=== PATIENT | male | born 1955 | race African-American/Black ===

== ENCOUNTER 2018-06-24 19:55 | Inpatient (IN) | payer MEDICARE ==
[~2018-06-24] VITALS: Ht 180.3 cm; Wt 89.4 kg
[2018-06-25] MEDS ORDERED: SODIUM CHLORIDE 0.9% 1000ML 1,000 ML IV STA (01:06)
[2018-06-25 01:37] LABS: BASOPHILS # (AUTO) 0.1 (0.0-0.1); BASOPHILS % 0.4 % (0.0-1.0); EOSINOPHILS # (AUTO) 0.1 (0.0-0.4); EOSINOPHILS % 0.8 % (0.0-6.0); HEMATOCRIT 47.9 % (38.2-49.6); HEMOGLOBIN 15.5 g/dL (14.0-18.0); LYMPHOCYTES % 7.3 % (18.0-39.1); MEAN CORPUSCULAR HEMOGLOBIN 30.6 pg (28-32); MEAN CORPUSCULAR HGB CONC 32.4 g/dL (31-35); MEAN CORPUSCULAR VOLUME 94.5 fL (81-99); MONOCYTES # (AUTO) 1.6 (0.2-0.8); MONOCYTES % 11.6 % (4.4-11.3); NEUTROPHILS # (AUTO) 11.1 (2.1-6.9); NEUTROPHILS % 79.4 % (38.7-80.0); PLATELET COUNT 105 x10e3/uL (140-360); RED BLOOD COUNT 5.07 x10e6/uL (4.3-5.7); RED CELL DISTRIBUTION WIDTH 15.8 % (11.7-14.4)
[2018-06-25 01:42] LABS: INR 2.39; PARTIAL THROMBOPLASTIN TIME 42.7 seconds (23.8-35.5); PROTHROMBIN TIME 24.5 seconds (11.9-14.5)
[2018-06-25 01:44] LABS: BILIRUBIN,URINE NEGATIVE (NEGATIVE); CLARITY,URINE CLOUDY (CLEAR); COLOR,URINE RED (YELLOW); KETONES,URINE NEGATIVE (NEGATIVE); LEUKOCYTE ESTERASE ,URINE 2+ (NEGATIVE); NITRITE,URINE NEGATIVE (NEGATIVE); PROTEIN,URINE DIPSTICK 2+ (NEGATIVE); URINE UROBILINOGEN 1 mg/dL (0.2 - 1)
[2018-06-25 01:45] LABS: EPITHELIAL CELLS,URINE RARE /LPF; RBC,URINE >50 /HPF (0-5)
[2018-06-25 01:51] LABS: ALBUMIN 2.8 g/dL (3.5-5.0); ALBUMIN/GLOBULIN RATIO 0.6 (0.8-2.0); ANION GAP 17.3 mmol/L (8-16); CALCIUM 9.4 mg/dL (8.4-10.2); CREATININE, SERUM 1.84 mg/dL (0.72-1.25); MAGNESIUM 1.6 MG/DL (1.3-2.1); POTASSIUM 4.3 mmol/L (3.5-5.1)
[2018-06-25 01:57] LABS: CREATINE KINASE MB 5.9 ng/mL (0-5.0)
--- NOTE | 2018-06-25 02:01 | Diagnostic Imaging Report ---
EXAM: CT ABDOMEN AND PELVIS without IV CONTRAST INDICATION: Hematuria, right-sided abdominal pain COMPARISON: None TECHNIQUE: The abdomen and pelvis were scanned using a multidetector helical scanner. Coronal and sagittal reformations were obtained. Renal stone protocol performed. IV Contrast: None Oral Contrast: None CTDIvol has been reviewed. It is below the limits set by the Radiation Protocol Committee (RPC). FINDINGS: LOWER THORAX: There is a 2.8 cm round subpleural mass/consolidation in the right lower lobe with adjacent traction bronchiectasis. Cardiomegaly. LIVER: No masses BILIARY: Possible gallbladder wall thickening. No ductal dilation. SPLEEN: No masses PANCREAS: No masses ADRENALS: No nodules RIGHT KIDNEY: No nephroureterolithiasis or hydronephrosis. Hyperdense 1 cm exophytic lesion superior pole, likely a hyperdense cyst. Nonspecific perinephric fat stranding. LEFT KIDNEY: Punctate nonobstructing stone in the inferior pole of the left kidney. No ureteral stones or hydronephrosis. Nonspecific perinephric fat stranding. GI TRACT: No wall thickening or obstruction. Normal appendix. VESSELS: Severe atherosclerotic changes of the abdominal aorta without aneurysm. PERITONEUM/RETROPERITONEUM: No free air or fluid LYMPH NODES: No lymphadenopathy REPRODUCTIVE ORGANS: Normal BLADDER: Bladder wall thickening and surrounding perinephric fat stranding. SOFT TISSUES: Normal BONES: No suspicious bone lesions. IMPRESSION: 1. Questionable gallbladder wall thickening without hydrops. If there is clinical concern for acute cholecystitis, consider right upper quadrant ultrasound. 2. Circumferential bladder wall thickening and surrounding inflammation suggests cystitis. 3. Punctate nonobstructing stone in the inferior pole of the left kidney 4. There is a 2.8 cm round subpleural mass/consolidation in the right lung base that is indeterminate for round atelectasis versus true pulmonary nodule. If there are no priors available for comparison at an outside facility, a follow-up CT of the chest is recommended in [address] Signed by: Dr. Jody Guerra M.D. on 06/25/2018 1:58 AM
--- NOTE | 2018-06-25 02:05 | Diagnostic Imaging Report ---
EXAM: CHEST SINGLE (PORTABLE), AP 1 view INDICATION: Chest pain COMPARISON: CT of the abdomen and pelvis June 25, 2018 FINDINGS: LINES/TUBES: Left approach single lead cardiac device. LUNGS: Right lower lobe airspace opacity. PLEURA: No effusions or pneumothorax. HEART AND MEDIASTINUM: Cardiomegaly BONES AND SOFT TISSUES: No acute findings. IMPRESSION: Right lower lobe airspace opacity is indeterminate for round atelectasis or subpleural nodule on comparison CT. Recommend comparing to any prior images not available at this facility versus CT of the chest in 3 months or PET/CT. Signed by: Dr. Jody Guerra M.D. on 06/25/2018 2:01 AM
[2018-06-25] MEDS ORDERED: ONDANSETRON HCL INJ 2 MG/ML VIAL IV STA (03:08)
[2018-06-25] MEDS ORDERED: MORPHINE SULFATE 2 MG/ML SYR IV STA (03:08)
[2018-06-25] MEDS: CEFTRIAXONE SOD 1 GM VIAL IV SCH ×2 (03:40→16:29)
[2018-06-25] MEDS ORDERED: NITROGLYCERIN 0.4 MG SUBL SL PRN (04:00)
[2018-06-25 06:29] LABS: CREATINE KINASE MB 5.9 ng/mL (0-5.0)
[2018-06-25] MEDS: MORPHINE SULFATE 2 MG/ML SYR IV PRN ×3 (08:04→21:35)
[2018-06-25 08:41] VITALS: BP 119/78
[2018-06-25] MEDS ORDERED: ASPIRIN 81 MG ENTERIC COATED PO ONE (11:30)
[2018-06-25 12:11] VITALS: BP 119/74
[2018-06-25] MEDS: FAMOTIDINE 20 MG/2 ML VIAL IV SCH ×2 (12:41→16:00)
--- NOTE | 2018-06-25 13:42 | Consultation ---
DATE OF CONSULTATION: June 25, 2018 CARDIOLOGY CONSULTATION REQUESTING PHYSICIAN: Dr. Jignesh Quiñones. REASON FOR CONSULTATION: Elevated troponin. HISTORY OF PRESENT ILLNESS: This is a 63-year-old man with history of chronic systolic heart failure (reported ejection fraction of 35-40%), chronic atrial fibrillation on Coumadin, coronary artery disease status post prior myocardial infarctions and stent placement most recently 5 years ago, peripheral arterial disease status post revascularization, diabetes mellitus, and hypertension who presents with complaints of dysuria and hematuria. The patient reports he has been having increasing lower abdominal pain for approximately 2 weeks. He recently developed dysuria and hematuria, for which he presented to the ER for further evaluation. While in the ER, he developed slight chest pain, which he described as stabbing, 3 to 5/10 in severity. It was not associated with radiation, shortness of breath, nausea, or diaphoresis. He reports the pain is better with belching. In addition, he also endorses chronic dyspnea on exertion at approximately 20 feet, lower extremity edema, and chronic orthopnea. In the ER, the patient was found to have a troponin of 1.585 with creatinine of 1.84, INR of 2.39 with leukocytosis at 13.93 and an abnormal UA with 2+ protein, 1+ glucose, 4+ blood, 2+ leukocyte esterase, greater than 50 rbc's, and 6 to 10 wbc's. The patient was admitted for further evaluation. REVIEW OF SYSTEMS: Negative except as per HPI. PAST MEDICAL HISTORY 1. Chronic systolic heart failure with reported EF 35-40%. 2. Chronic atrial fibrillation, on Coumadin. 3. Coronary artery disease, status post stents and myocardial infarction. 4. Peripheral arterial disease. 5. Diabetes mellitus. 6. Hypertension. PAST SURGICAL HISTORY: Denied. SOCIAL HISTORY: Smokes half pack a day since the age of 16. No alcohol or drugs. FAMILY HISTORY: Pertinent for brother with heart disease. ALLERGIES: PLEASE SEE EMR. MEDICATIONS: Please see medication list. PHYSICAL EXAMINATION VITAL SIGNS: Temperature 98.6 degrees, pulse 91, respiratory rate 20, blood pressure 119/70, oxygen saturation 92%. GENERAL: Well developed, well nourished main, in no acute distress. HEENT: Normocephalic, atraumatic. Pupils equal, no scleral icterus. NECK: Supple. No thyromegaly or cervical lymphadenopathy. No carotid bruits. LUNGS: Clear to auscultation bilaterally. No wheezes or crackles. CARDIOVASCULAR: Normal rate, irregularly irregular. No murmur. Normal S1 and S2. ABDOMEN: Soft, nontender. EXTREMITIES: 1+ pitting edema bilateral lower extremities. NEURO: Nonfocal exam. LABORATORY DATA: Sodium 135, potassium 4.3, chloride 96, CO2 of 26, BUN 39, creatinine 1.84. WBC 13.93, hemoglobin 15.5, hematocrit 47.9, platelets 105. Troponin 1.6, now 1.615, INR 2.39. CT abdomen and pelvis with questionable gallbladder wall thickening without hydrops. If there is concern for acute cholecystitis, consider right upper quadrant ultrasound. Circumferential bladder wall thickening and surrounding inflammation suggest cystitis. Punctate nonobstructive stone in inferior pole of the left kidney, 2.8 cm round subpleural mass consolidation in the right lung base that is indeterminate for round atelectasis versus true pulmonary nodule. If there are no priors available for comparison at outside facility, a followup CT of the chest is recommended in 3 months versus PET/CT. Chest x-ray, right lower lobe airspace opacity is indeterminate for round atelectasis or subpleural nodule on comparison CT. Recommended comparing to any priors. If it is not available at this facility, followup CT of the chest in 3 months or PET/CT. EKG demonstrates atrial fibrillation, PVCs, nonspecific intraventricular block, possible lateral infarct age undetermined, inferior infarct age undetermined. IMPRESSION 1. Acute kidney disease versus chronic kidney disease. 2. Urinary tract infection. 3. Elevated troponin. 4. Chronic atrial fibrillation. 5. Coronary artery disease, status post prior stents. 6. Chronic systolic heart failure. 7. Peripheral arterial disease. 8. Diabetes mellitus. 9. Hypertension. RECOMMENDATIONS: Trend cardiac enzymes. Thus far, troponin is not consistent with myocardial infarction. Suspect elevation is secondary to chronic systolic heart failure as well as renal dysfunction. Obtain echocardiogram. Given complaint of claudication, we will also obtain bilateral lower extremity arterial Dopplers. Monitor creatinine. Antibiotics per primary service. Patient will need ischemic evaluation prior to discharge if his renal function improves. In the meantime, recommend dual-antiplatelet therapy. We will need to hold his Coumadin for possible procedures by urology. Thank you for this consult. We will continue to follow. Job#: [id number] SKI
[2018-06-25 16:28] VITALS: BP 118/74
[2018-06-25] MEDS ORDERED: PLAVIX75 MG PO (17:15)
[2018-06-25] MEDS ORDERED: TRAMADOL HCL100 MG (17:15)
[2018-06-25] MEDS ORDERED: LORATADINE10 MG PO (17:15)
[2018-06-25] MEDS ORDERED: LISINOPRIL10 MG PO (17:15)
[2018-06-25] MEDS ORDERED: LASIX40 MG PO (17:15)
[2018-06-25] MEDS ORDERED: GABAPENTIN100 MG (17:15)
[2018-06-25] MEDS ORDERED: COREG12.5 MG (17:15)
[2018-06-25] MEDS: FUROSEMIDE 40 MG TAB PO SCH (21:00)
[2018-06-25 21:08] VITALS: BP 132/89
[2018-06-25] MEDS: GABAPENTIN 100 MG CAP PO SCH (21:22)
[2018-06-25 22:36] VITALS: BP 132/89
[2018-06-26 00:11] VITALS: BP 150/76
[2018-06-26] MEDS: CEFTRIAXONE SOD 1 GM VIAL IV SCH ×2 (02:40→15:19)
[2018-06-26] MEDS: FAMOTIDINE 20 MG/2 ML VIAL IV SCH ×2 (04:00→16:50)
[2018-06-26 05:06] LABS: BASOPHILS # (AUTO) 0.1 (0.0-0.1); BASOPHILS % 0.7 % (0.0-1.0); EOSINOPHILS # (AUTO) 0.2 (0.0-0.4); HEMATOCRIT 47.6 % (38.2-49.6); HEMOGLOBIN 15.2 g/dL (14.0-18.0); LYMPHOCYTES # (AUTO) 1.1 (1.0-3.2); LYMPHOCYTES % 12.8 % (18.0-39.1); MEAN CORPUSCULAR HEMOGLOBIN 30.6 pg (28-32); MEAN CORPUSCULAR HGB CONC 31.9 g/dL (31-35); MONOCYTES # (AUTO) 1.1 (0.2-0.8); MONOCYTES % 12.9 % (4.4-11.3); NEUTROPHILS % 71.1 % (38.7-80.0); PLATELET COUNT 103 x10e3/uL (140-360); RED BLOOD COUNT 4.96 x10e6/uL (4.3-5.7); RED CELL DISTRIBUTION WIDTH 15.8 % (11.7-14.4)
[2018-06-26 05:22] VITALS: BP 172/82
[2018-06-26 05:27] LABS: ALBUMIN 2.5 g/dL (3.5-5.0); ALBUMIN/GLOBULIN RATIO 0.6 (0.8-2.0); ANION GAP 14.5 mmol/L (8-16); CALCIUM 9.5 mg/dL (8.4-10.2); CHOL/HDL RATIO 3.1 (3.9-4.7); CREATININE, SERUM 1.57 mg/dL (0.72-1.25); MAGNESIUM 1.6 MG/DL (1.3-2.1); POTASSIUM 4.5 mmol/L (3.5-5.1)
[2018-06-26] MEDS: MORPHINE SULFATE 2 MG/ML SYR IV PRN ×2 (07:21→21:07)
[2018-06-26] MEDS: LORATADINE 10 MG TAB PO SCH (09:00)
[2018-06-26] MEDS ORDERED: LISINOPRIL 10 MG TAB PO SCH (09:00)
[2018-06-26] MEDS ORDERED: CLOPIDOGREL BISULFATE 75 MG TAB PO SCH (09:00)
[2018-06-26] MEDS: TRAMADOL HCL 50 MG TAB PO SCH ×2 (09:00→16:59)
[2018-06-26] MEDS: CLOPIDOGREL BISULFATE 75 MG TAB PO SCH (09:25)
[2018-06-26] MEDS: FUROSEMIDE 40 MG TAB PO SCH ×3 (09:25→21:00)
[2018-06-26] MEDS: GABAPENTIN 100 MG CAP PO SCH ×3 (09:25→21:07)
[2018-06-26] MEDS: CARVEDILOL 12.5 MG TAB PO SCH ×2 (09:25→16:13)
[2018-06-26] MEDS: LISINOPRIL 20 MG TAB PO SCH (09:26)
[2018-06-26 12:27] LABS: CREATINE KINASE MB 9.1 ng/mL (0-5.0)
[2018-06-26 12:37] VITALS: BP 124/60
[2018-06-26] MEDS ORDERED: DEXTROSE 50% SYRINGE 50 ML IV PRN (13:45)
[2018-06-26] MEDS: NICOTINE 14 MG/EA PATCH TOP SCH (14:16)
[2018-06-26 16:00] VITALS: BP 119/64
[2018-06-26] MEDS: INSULIN LISPRO 100 UNIT/1 ML 3ML VIAL SQ SCH ×2 (16:30→21:07)
--- NOTE | 2018-06-26 17:27 | Progress Note ---
DATE: CARDIOLOGY PROGRESS NOTE SUBJECTIVE: Patient complains of some dyspnea on exertion and also claudication especially on the left lower extremity. He also does endorse dysuria. However, this is getting better and hematuria is also reported to have improved. OBJECTIVE VITAL SIGNS: Temperature 97.2, pulse 67, respiratory rate 18, blood pressure 130/75, oxygen saturation 97% on room air. CARDIOVASCULAR MEDICATIONS 1. Lisinopril 40 mg p.o. daily. 2. Lasix 40 mg p.o. t.i.d. 3. Coreg 12.5 p.o. b.i.d. 4. Plavix 75 p.o. daily. 5. Nitro 0.4 mg sublingual every 5 minutes p.r.n. for chest pain. LABS: WBC 8.47, hemoglobin 15.2, hematocrit 47.6, and platelets 103,000. Sodium 139, potassium 4.5, BUN 51, creatinine 1.57. Glucose 205. AST 34, ALT 18. Troponin 1.5. CK-MB 7 from yesterday. LDL 60, total cholesterol 108. Telemetry with AFib with a bundle branch block. PHYSICAL EXAMINATION GENERAL: Alert and oriented times 3. Resting comfortably in bed. Does not appear to be in acute distress. NECK: Supple. Moderate JVD noted. CARDIOVASCULAR: Irregular rate and rhythm. Systolic murmur noted. S3 and S4 auscultated. Normal S1 and S2. LUNGS: Diminished breath sounds in posterior lower lobes with scattered crackles. ABDOMEN: Rounded, soft and nontender. EXTREMITIES: Two plus pitting edema, left greater than right. Absent posterior tibial and dorsalis pulses. NEURO: Nonfocal. IMPRESSION 1. Acute kidney disease versus chronic kidney disease. 2. Urinary tract infection with reported hematuria. 3. Elevated troponin. 4. Chronic atrial fibrillation. 5. Coronary artery disease: Status post prior stents. 6. Chronic systolic heart failure. 7. Peripheral arterial disease. 8. Diabetes mellitus. 9. Hypertension. RECOMMENDATIONS: Repeat troponin today. We suspect troponin elevation likely secondary to systolic heart failure, as well as renal dysfunction. Echocardiogram has been ordered. Recommendations to follow. Bilateral lower extremity arterial Doppler was obtained yesterday. Recommendations will follow. Awaiting review. Continue antimicrobial therapy per primary team. The patient will need ischemic evaluation prior to discharge if his renal function does improve. In the meantime, monitor renal function very closely. Continue dual antiplatelet therapy. Hold warfarin for now and initiate Lovenox in case of possible procedures. DICTATED BY ENEDINA RIOS NP Job#: [id number] RI
[2018-06-26 20:53] VITALS: BP 106/73
[2018-06-27] VITALS (7 sets, daily range): BP systolic 107–163; BP diastolic 61–97
[2018-06-27] MEDS: MORPHINE SULFATE 2 MG/ML SYR IV PRN ×4 (02:04→23:39)
[2018-06-27] MEDS: CEFTRIAXONE SOD 1 GM VIAL IV SCH ×2 (03:32→15:26)
[2018-06-27] MEDS: FAMOTIDINE 20 MG/2 ML VIAL IV SCH ×2 (03:32→16:50)
[2018-06-27] MEDS: INSULIN LISPRO 100 UNIT/1 ML 3ML VIAL SQ SCH ×4 (07:30→20:51)
[2018-06-27] MEDS: CARVEDILOL 12.5 MG TAB PO SCH ×2 (09:00→17:01)
[2018-06-27] MEDS: LORATADINE 10 MG TAB PO SCH (09:00)
[2018-06-27] MEDS: CLOPIDOGREL BISULFATE 75 MG TAB PO SCH (09:14)
[2018-06-27] MEDS: NICOTINE 14 MG/EA PATCH TOP SCH (09:14)
[2018-06-27] MEDS: TRAMADOL HCL 50 MG TAB PO SCH ×3 (09:14→21:00)
[2018-06-27] MEDS: LISINOPRIL 20 MG TAB PO SCH (09:14)
[2018-06-27] MEDS: FUROSEMIDE 40 MG TAB PO SCH ×3 (09:14→20:51)
[2018-06-27] MEDS: GABAPENTIN 100 MG CAP PO SCH ×3 (09:14→20:51)
[2018-06-27] MEDS ORDERED: MEROPENEM 1GM 100 ML IV SCH (11:00)
[2018-06-27] MEDS: MEROPENEM 1 GM VIAL IV SCH ×2 (11:30→23:50)
[2018-06-27] MEDS: ONDANSETRON HCL INJ 2 MG/ML VIAL IV PRN (12:36)
[2018-06-27] MEDS: ENOXAPARIN SOD INJ 40 MG/0.4 ML SYR SC SCH ×2 (13:10→20:51)
--- NOTE | 2018-06-27 13:47 | Progress Note ---
DATE: CARDIOLOGY PROGRESS NOTE SUBJECTIVE: The patient is without any new complaints. However, he does endorse claudication, left leg worse than the right. Also, some shortness of breath and also continued dysuria. OBJECTIVE VITAL SIGNS: Temperature 96.8, pulse 78, respiratory rate 20, blood pressure 122/86, oxygen saturation 94% on room air. CARDIOVASCULAR MEDICATIONS 1. Lisinopril 40 mg p.o. daily. 2. Furosemide 40 mg p.o. t.i.d. 3. Plavix 75 mg p.o. daily. 4. Coreg 12.5 mg daily. LABS: No new labs today. Arterial Doppler from June 25, 2018, with evidence of total occlusion in the right femoral artery and also total occlusion in the left femoral artery. Severe PAD. Telemetry with rate controlled atrial flutter. PHYSICAL EXAMINATION GENERAL: Alert and oriented times 3. Resting comfortably in the chair. Does not appear to be in any acute distress. NECK: Supple. Moderate JVD noted. CARDIOVASCULAR: Regular rate and rhythm. Systolic murmur noted. S3 and S4 auscultated. Normal S1 and S2. LUNGS: Diminished in the posterior lower lobes with scattered crackles. ABDOMEN: Rounded, soft and nontender. EXTREMITIES: Two plus pitting edema, left lower extremity greater than the right. Absent pedal pulses. IMPRESSION 1. Acute kidney disease versus chronic kidney disease. 2. Urinary tract infection with reported hematuria on admission, now hematuria has resolved with a stable hemoglobin noted. 3. Elevated troponin. 4. Chronic atrial fibrillation. 5. Coronary artery disease: Status post stents 3 years ago per his reporting. 6. Chronic systolic heart failure. 7. Peripheral arterial disease, now with occluded left and right femoral artery. 8. Diabetes mellitus. 9. Hypertension. RECOMMENDATIONS: The patient will need coronary and also peripheral angiogram. Will discuss timing and recommendations will follow. For now, continue the above list of cardiac medications. Discontinue Plavix. Maintain on aspirin. We will resume warfarin upon discharge. For now, subcutaneous Lovenox due to anticipated procedure. We will continue to follow very closely. DICTATED BY ENEDINA RIOS NP Job#: [id number] DAO
[2018-06-27] MEDS ORDERED: WARFARIN SOD 3 MG TAB PO SCH (17:00)
[2018-06-28] VITALS (8 sets, daily range): BP systolic 110–150; BP diastolic 67–93
[2018-06-28] MEDS: CEFTRIAXONE SOD 1 GM VIAL IV SCH ×2 (03:53→15:35)
[2018-06-28] MEDS: FAMOTIDINE 20 MG/2 ML VIAL IV SCH ×2 (03:53→15:35)
[2018-06-28 05:06] LABS: BASOPHILS # (AUTO) 0.1 (0.0-0.1); BASOPHILS % 0.9 % (0.0-1.0); EOSINOPHILS # (AUTO) 0.4 (0.0-0.4); EOSINOPHILS % 5.4 % (0.0-6.0); HEMATOCRIT 47.1 % (38.2-49.6); HEMOGLOBIN 15.4 g/dL (14.0-18.0); LYMPHOCYTES # (AUTO) 1.2 (1.0-3.2); LYMPHOCYTES % 15.4 % (18.0-39.1); MEAN CORPUSCULAR HEMOGLOBIN 30.6 pg (28-32); MEAN CORPUSCULAR HGB CONC 32.7 g/dL (31-35); MEAN CORPUSCULAR VOLUME 93.6 fL (81-99); MONOCYTES # (AUTO) 1.1 (0.2-0.8); MONOCYTES % 14.3 % (4.4-11.3); NEUTROPHILS # (AUTO) 4.7 (2.1-6.9); NEUTROPHILS % 63.6 % (38.7-80.0); PLATELET COUNT 119 x10e3/uL (140-360); RED BLOOD COUNT 5.03 x10e6/uL (4.3-5.7); RED CELL DISTRIBUTION WIDTH 15.3 % (11.7-14.4)
[2018-06-28 05:28] LABS: ANION GAP 16.5 mmol/L (8-16); CALCIUM 9.3 mg/dL (8.4-10.2); CREATININE, SERUM 1.48 mg/dL (0.72-1.25); POTASSIUM 3.5 mmol/L (3.5-5.1)
[2018-06-28] MEDS: INSULIN LISPRO 100 UNIT/1 ML 3ML VIAL SQ SCH ×4 (07:30→21:20)
[2018-06-28] MEDS: MORPHINE SULFATE 2 MG/ML SYR IV PRN ×3 (08:30→16:31)
[2018-06-28] MEDS: GABAPENTIN 100 MG CAP PO SCH ×3 (08:38→22:05)
[2018-06-28] MEDS: FUROSEMIDE 40 MG TAB PO SCH ×3 (08:38→22:05)
[2018-06-28] MEDS: CARVEDILOL 12.5 MG TAB PO SCH ×2 (08:38→16:30)
[2018-06-28] MEDS: LORATADINE 10 MG TAB PO SCH (08:38)
[2018-06-28] MEDS: LISINOPRIL 20 MG TAB PO SCH (08:38)
[2018-06-28] MEDS: NICOTINE 14 MG/EA PATCH TOP SCH (08:39)
[2018-06-28] MEDS: ENOXAPARIN SOD INJ 40 MG/0.4 ML SYR SC SCH ×2 (08:39→22:05)
[2018-06-28] MEDS ORDERED: ASPIRIN 325 MG TAB PO ONE (09:00)
[2018-06-28] MEDS: TRAMADOL HCL 50 MG TAB PO SCH ×3 (09:15→22:05)
[2018-06-28] MEDS: MEROPENEM 1 GM VIAL IV SCH ×2 (12:12→23:30)
--- NOTE | 2018-06-28 19:19 | Progress Note ---
DATE: June 28, 2018 CARDIOLOGY PROGRESS NOTE SUBJECTIVE: No major events overnight. No more hematuria. Feels well. Denies any chest pain or shortness of breath. Complains about pain in the legs whenever he tries to walk. REVIEW OF SYSTEMS: As above, otherwise negative. OBJECTIVE GENERAL: man, well developed, well nourished, no acute distress. CARDIOVASCULAR: Regular rate and rhythm. Systolic ejection murmur. S4 gallop. Normal S1 and S2. Palpable carotid pulses. Palpable radial pulses. Pulses in the lower extremities are not palpable. There is 2+ pitting edema in bilateral lower extremities. JVD to 12 cm. LUNGS: Poor air movement likely consistent with COPD. No respiratory distress. Lungs are clear to auscultation bilaterally. ABDOMEN: Soft, nontender. NEURO AND PSYCH: Alert and oriented to person, place and time. Normal affect. IMPRESSION 1. Acute kidney injury. 2. Urinary tract infection with reported hematuria. Now hematuria resolved with stable hemoglobin. 3. Elevated troponin. 4. Chronic atrial fibrillation. 5. Coronary artery disease, status post stents 3 years ago per patient. 6. Chronic systolic heart failure. 7. Peripheral arterial disease. 8. Severe claudication. 9. Occluded left and right femoral arteries by Doppler. 10. Diabetes. 11. Hypertension. RECOMMENDATIONS: The patient will need coronary and peripheral angiogram. Waiting for his renal function to improve. As it continues to come down, creatinine 1.4 today down from 1.8 several days ago. For now, continue the current cardiac medications including Lovenox. Will tentatively plan for angiography on Thursday. Will continue to follow. Thank you for this consult. Job#: [id number]
[2018-06-29] VITALS (7 sets, daily range): BP systolic 112–143; BP diastolic 67–89
[2018-06-29] MEDS: MORPHINE SULFATE 2 MG/ML SYR IV PRN ×4 (01:24→19:35)
[2018-06-29] MEDS: CEFTRIAXONE SOD 1 GM VIAL IV SCH ×2 (03:40→16:21)
[2018-06-29] MEDS: FAMOTIDINE 20 MG/2 ML VIAL IV SCH ×2 (03:47→16:21)
[2018-06-29] MEDS: INSULIN LISPRO 100 UNIT/1 ML 3ML VIAL SQ SCH ×4 (07:30→21:09)
[2018-06-29] MEDS: GABAPENTIN 100 MG CAP PO SCH ×3 (08:29→21:09)
[2018-06-29] MEDS: LORATADINE 10 MG TAB PO SCH (08:29)
[2018-06-29] MEDS: FUROSEMIDE 40 MG TAB PO SCH ×3 (08:29→21:09)
[2018-06-29] MEDS: CARVEDILOL 12.5 MG TAB PO SCH (08:29)
[2018-06-29] MEDS: LISINOPRIL 20 MG TAB PO SCH (08:29)
[2018-06-29] MEDS: TRAMADOL HCL 50 MG TAB PO SCH ×3 (08:29→21:00)
[2018-06-29] MEDS: ENOXAPARIN SOD INJ 40 MG/0.4 ML SYR SC SCH ×2 (08:30→21:09)
[2018-06-29] MEDS: NICOTINE 14 MG/EA PATCH TOP SCH (08:30)
[2018-06-29] MEDS: ACETAMINOPHEN 325 MG TAB PO PRN (09:50)
[2018-06-29] MEDS: MEROPENEM 1 GM VIAL IV SCH ×2 (12:17→23:30)
[2018-06-29 14:14] LABS: ANION GAP 13.7 mmol/L (8-16); CALCIUM 9.3 mg/dL (8.4-10.2); CREATININE, SERUM 1.62 mg/dL (0.72-1.25); POTASSIUM 3.7 mmol/L (3.5-5.1)
--- NOTE | 2018-06-29 15:51 | Progress Note ---
DATE: June 29, 2018 CARDIOLOGY PROGRESS NOTE No major events overnight. No chest pain. Claudication upon walking. No more hematuria. REVIEW OF SYSTEMS: As above, otherwise negative. OBJECTIVE VITAL SIGNS: Temperature 97.6, pulse 77, respiratory 19, blood pressure 112/67, saturations 96% on room air. GENERAL: man. No acute distress. CARDIOVASCULAR: Diffuse PMI. Normal S1, S2. No murmurs, rubs, or gallops. Palpable carotid pulses. Palpable radial pulses. Lower extremity pulses are not palpable. ABDOMEN: Soft, nontender. RESPIRATORY: No respiratory distress. Lungs are clear to auscultation. NEURO AND PSYCH: Alert and oriented to person, place and time. Normal affect. LABORATORY DATA: Reviewed. Creatinine has increased slightly to 1.6 today. Peak troponin 1.6. ASSESSMENT AND PLAN 1. Acute kidney injury versus chronic kidney disease. 2. Non-ST elevation myocardial infarction. 3. Urinary tract infection. 4. Hematuria. 5. Atrial fibrillation on anticoagulation. 6. Coronary artery disease status post prior stents. 7. Ischemic cardiomyopathy. Ejection fraction of 35 to 40%. 8. Chronic systolic heart failure. 9. Peripheral arterial disease with claudication. 10. Diabetes. 11. Hypertension. PLAN: His troponin elevation likely related to his chronic congestive heart failure as there was no obvious rise and fall as well as normal CK-MB and CK noted. Patient is pending coronary angiogram as well as a peripheral angiogram with possible intervention done by me. However, given his possible acute kidney injury and recent hematuria, will wait on the timing. Likely plan for these procedures on July 01. Will continue to follow closely. Thank you for this consult. Job#: [id number] MAGNUS
[2018-06-30] VITALS (8 sets, daily range): BP systolic 111–134; BP diastolic 65–86
[2018-06-30] MEDS: FAMOTIDINE 20 MG/2 ML VIAL IV SCH ×2 (03:31→15:50)
[2018-06-30] MEDS: CEFTRIAXONE SOD 1 GM VIAL IV SCH ×2 (03:31→15:50)
[2018-06-30] MEDS: MORPHINE SULFATE 2 MG/ML SYR IV PRN ×4 (03:36→21:32)
[2018-06-30 05:38] LABS: ANION GAP 14.6 mmol/L (8-16); CALCIUM 9.3 mg/dL (8.4-10.2); CREATININE, SERUM 1.51 mg/dL (0.72-1.25); POTASSIUM 3.6 mmol/L (3.5-5.1)
[2018-06-30] MEDS: INSULIN LISPRO 100 UNIT/1 ML 3ML VIAL SQ SCH ×4 (07:30→20:38)
--- NOTE | 2018-06-30 08:46 | Progress Note ---
DATE: June 30, 2018 CARDIOLOGY PROGRESS NOTE SUBJECTIVE: No major events overnight. No further episodes of chest pain. Feels well overall. Still has severe pain in his bilateral lower extremities, some times at rest and even with minimal exertion. REVIEW OF SYSTEMS: As above, otherwise negative. OBJECTIVE VITAL SIGNS: Temperature 97.6, pulse 75, respiratory rate 18, blood pressure 111/65, and satting 95% on room air. GENERAL: An man well-developed and in no acute distress. CARDIOVASCULAR: Irregular rhythm. Normal S1 and S2. No murmurs, rubs or gallops. Palpable carotid pulses. Palpable radial pulses. Bilateral femoral pulses are not palpable. EXTREMITIES: Lower extremity pulses are not palpable. LABORATORY DATA: Reviewed. Creatinine 1.5. IMAGING DATA: Reviewed. Telemetry data reviewed. Atrial fibrillation, rate controlled. ASSESSMENT AND PLAN 1. Elevated troponin. 2. Acute kidney injury versus chronic kidney disease. 3. Urinary tract infection. 4. Hematuria. 5. Atrial fibrillation, on anticoagulation. 6. Coronary artery disease: Status post prior stents. 7. Ischemic cardiomyopathy. 8. Chronic systolic heart failure. 9. Peripheral arterial disease with claudication and rest pain. 10. Diabetes. 11. Hypertension. PLAN: Elevated troponin likely related to his chronic heart failure given no rise or fall in troponins and normal CK-MB. Pending coronary angiogram, as well as peripheral angiogram with possible intervention. Creatinine seems to have stabilized around 1.5. This likely is his baseline CKD. Will plan for coronary angiography, as well as peripheral angiography and possible intervention for , July 01, 2018. Will continue to follow closely. Job#: [id number] DAO
[2018-06-30] MEDS: LORATADINE 10 MG TAB PO SCH (09:00)
[2018-06-30] MEDS ORDERED: CARVEDILOL 12.5 MG TAB PO SCH (09:00)
[2018-06-30] MEDS: ENOXAPARIN SOD INJ 40 MG/0.4 ML SYR SC SCH ×2 (09:13→20:27)
[2018-06-30] MEDS: NICOTINE 14 MG/EA PATCH TOP SCH (09:13)
[2018-06-30] MEDS: LISINOPRIL 20 MG TAB PO SCH (09:13)
[2018-06-30] MEDS: GABAPENTIN 100 MG CAP PO SCH ×3 (09:13→20:27)
[2018-06-30] MEDS: FUROSEMIDE 40 MG TAB PO SCH ×3 (09:13→20:27)
[2018-06-30] MEDS: CARVEDILOL 3.125 MG TAB PO SCH ×2 (09:13→16:46)
[2018-06-30] MEDS: TRAMADOL HCL 50 MG TAB PO SCH ×3 (09:26→20:28)
[2018-06-30] MEDS: MEROPENEM 1 GM VIAL IV SCH (12:04)
[2018-07-01] VITALS (12 sets, daily range): BP systolic 124–153; BP diastolic 77–103
[2018-07-01] MEDS: MEROPENEM 1 GM VIAL IV SCH ×2 (00:27→12:22)
[2018-07-01] MEDS: CEFTRIAXONE SOD 1 GM VIAL IV SCH ×2 (03:30→15:15)
[2018-07-01] MEDS: FAMOTIDINE 20 MG/2 ML VIAL IV SCH ×2 (04:00→16:00)
[2018-07-01] MEDS: INSULIN LISPRO 100 UNIT/1 ML 3ML VIAL SQ SCH ×4 (07:30→21:00)
[2018-07-01] MEDS: LORATADINE 10 MG TAB PO SCH (07:55)
[2018-07-01] MEDS: TRAMADOL HCL 50 MG TAB PO SCH ×4 (07:56→22:15)
[2018-07-01] MEDS: NICOTINE 14 MG/EA PATCH TOP SCH (07:56)
[2018-07-01] MEDS: ENOXAPARIN SOD INJ 40 MG/0.4 ML SYR SC SCH ×3 (07:56→20:50)
[2018-07-01] MEDS: CARVEDILOL 3.125 MG TAB PO SCH ×2 (07:56→17:00)
[2018-07-01] MEDS: LISINOPRIL 20 MG TAB PO SCH (07:56)
[2018-07-01] MEDS: GABAPENTIN 100 MG CAP PO SCH ×3 (07:56→20:50)
[2018-07-01] MEDS: FUROSEMIDE 40 MG TAB PO SCH ×3 (07:56→20:50)
[2018-07-01] MEDS: MORPHINE SULFATE 2 MG/ML SYR IV PRN ×2 (13:45→21:00)
[2018-07-01] MEDS ORDERED: MIDAZOLAM HCL 2 MG/2 ML VIAL ONE ×2 (14:47→15:56)
[2018-07-01] MEDS ORDERED: FENTANYL CITRATE/PF 100MCG/2 ML INJ ONE ×2 (14:47→17:08)
[2018-07-01] MEDS ORDERED: LIDOCAINE HCL 2% LOCAL 20 ML VIAL ONE ×2 (14:47→15:25)
[2018-07-01] MEDS ORDERED: HEPARIN SOD/SOD CHLORIDE 2,000 ML ONE (14:48)
[2018-07-01] MEDS ORDERED: IOPAMIDOL 370 MG/ML 200 ML INFUS..BTL INJ ONE (14:48)
[2018-07-01] MEDS ORDERED: SODIUM CHLORIDE 0.9% 1000ML 0 ML ONE (14:48)
[2018-07-01] MEDS ORDERED: IOPAMIDOL 300MG/ML 100 ML INFUS..BTL IV ONE (14:48)
[2018-07-01] MEDS ORDERED: HEPARIN SOD (PORCINE) 1000 UNIT/ML 30ML ONE (16:03)
[2018-07-01] MEDS ORDERED: VERAPAMIL HCL 2.5 MG/ML 2 ML VIAL ONE (16:03)
[2018-07-01] MEDS ORDERED: SODIUM CHLORIDE 0.9% 1000ML 1,000 ML ONE (16:04)
[2018-07-01] MEDS ORDERED: HEPARIN SOD/SOD CHLORIDE 1,000 ML ONE (16:19)
[2018-07-02] VITALS (9 sets, daily range): BP systolic 124–157; BP diastolic 74–103
[2018-07-02] MEDS: MEROPENEM 1 GM VIAL IV SCH ×3 (00:39→20:37)
[2018-07-02] MEDS: FAMOTIDINE 20 MG/2 ML VIAL IV SCH ×2 (04:33→16:00)
[2018-07-02] MEDS: INSULIN LISPRO 100 UNIT/1 ML 3ML VIAL SQ SCH ×4 (07:30→20:31)
[2018-07-02] MEDS: ENOXAPARIN SOD INJ 40 MG/0.4 ML SYR SC SCH ×2 (09:00→20:36)
[2018-07-02] MEDS: TRAMADOL HCL 50 MG TAB PO SCH ×3 (09:00→21:41)
[2018-07-02] MEDS ORDERED: PANTOPRAZOLE 40 MG 10ML VIAL IV ONE (09:00)
[2018-07-02] MEDS: HYDROMORPHONE 2MG/ML 2 MG/ML ML IV PRN ×2 (09:04→20:36)
[2018-07-02] MEDS: FUROSEMIDE 40 MG TAB PO SCH ×3 (11:58→20:36)
[2018-07-02] MEDS: LISINOPRIL 20 MG TAB PO SCH (11:58)
[2018-07-02] MEDS: LORATADINE 10 MG TAB PO SCH (11:58)
[2018-07-02] MEDS: CARVEDILOL 3.125 MG TAB PO SCH (11:58)
[2018-07-02] MEDS: GABAPENTIN 100 MG CAP PO SCH ×3 (11:58→20:36)
[2018-07-02] MEDS: NICOTINE 14 MG/EA PATCH TOP SCH (11:59)
[2018-07-02] MEDS ORDERED: FENTANYL CITRATE/PF 100MCG/2 ML INJ ONE (12:20)
[2018-07-02] MEDS ORDERED: MIDAZOLAM HCL 2 MG/2 ML VIAL ONE (12:20)
[2018-07-02] MEDS ORDERED: PROPOFOL IV EMULSION 10 MG/ML 20 ML VIAL ONE (13:07)
[2018-07-02] MEDS ORDERED: LIDOCAINE HCL 2% LOCAL INJ 5 ML SDV VIAL INJ ONE (13:07)
[2018-07-02] MEDS ORDERED: BACITRACIN 50,000 UNIT VIAL ONE (14:49)
[2018-07-02] MEDS ORDERED: LIDOCAINE HCL 2% LOCAL 20 ML VIAL ONE (14:49)
[2018-07-02] MEDS ORDERED: SODIUM CHLORIDE 0.9% 1000ML 1,000 ML ONE (14:50)
[2018-07-02] MEDS ORDERED: SODIUM CHLORIDE 0.9% 500ML 1,000 ML ONE (14:50)
[2018-07-02] MEDS ORDERED: VANCOMYCIN 1GM/NS 250 ML 250 ML ONE (14:53)
[2018-07-02] MEDS ORDERED: SODIUM CHLORIDE 0.9% 100 ML 200 ML ONE (15:10)
[2018-07-02] MEDS ORDERED: NOREPINEPHRINE 8 MG/D5W 250 ML 250 ML ONE (15:42)
[2018-07-02] MEDS ORDERED: SODIUM BICARBONATE 8.4% SYRING 50 ML ONE (16:11)
--- NOTE | 2018-07-02 16:49 | Progress Note ---
DATE: July 02, 2018 CARDIOLOGY PROGRESS NOTE SUBJECTIVE: No major events overnight. No chest pain. Had no symptoms of claudication overnight. Mild groin pain but otherwise no complaints. REVIEW OF SYSTEMS: As above, otherwise negative. OBJECTIVE VITAL SIGNS: Temperature 96.5, pulse 83, respiratory rate 20, blood pressure 153/103, satting 95% on room air. MEDICATIONS: Reviewed. LABORATORY DATA: Reviewed. IMAGING DATA: Reviewed. ASSESSMENT AND PLAN 1. Elevated troponin. 2. Chronic kidney injury. 3. Coronary artery disease. 4. Peripheral arterial disease. 5. Urinary tract infection. 6. Hematuria. 7. Atrial fibrillation on anticoagulation. 8. Ischemic cardiomyopathy with severely depressed ejection fraction. 9. Chronic systolic heart failure. 10. Diabetes. 11. Hypertension. PLAN: Patient underwent coronary angiography as well as peripheral angiography with attempted intervention by me yesterday. His coronary stents are patent and has diffuse plaquing without any significant stenosis needing revascularization. Given his EF has dropped despite no new coronary artery disease, will refer to electrophysiology for upgrade to bi-V ICD. Plan to be done today. Patient also has severe peripheral arterial disease including LAYOUT OPERATOR of the left SFA and severe diffuse disease of the right SFA as well as severe disease below the knee bilaterally. I attempted to cross the LAYOUT OPERATOR of the left SFA yesterday, however was unsuccessful. The procedure was completed without any complications. Continue risk factor management at this time with focus on smoking cessation. The patient will follow up with me as an outpatient, and we will discuss attempting once again with possibly pedal access in the future. Thank you for this consult. We will continue to follow. Job#: [id number]
[2018-07-02] MEDS: CARVEDILOL 12.5 MG TAB PO SCH (17:00)
[2018-07-02] MEDS ORDERED: CARVEDILOL 3.125 MG TAB PO SCH (17:00)
--- NOTE | 2018-07-02 17:58 | Operative Report ---
DATE OF PROCEDURE: July 01, 2018 INDICATION FOR PROCEDURE: Elevated troponins and claudication. Pre-sedation assessment, medical history, social history and previous experience with anesthesia were reviewed and documented in the preoperative record. Also relevant diagnostic studies were reviewed. Plans, choice of anesthesia, risks, complications, benefits and alternatives were discussed. The patient thought to be an appropriate candidate for moderate sedation for this procedure. CONSENT: The benefits, risks, complications and alternatives to the procedure were discussed with the patient and informed consent was obtained from the patient. MEDICATIONS: Please see nursing notes for medications administered during the procedure. PROCEDURE: Patient was brought to the cardiac catheterization laboratory in a fasting state. Right groin was prepped and draped in a sterile fashion and 1% lidocaine was used to infiltrate the right groin area above the right common femoral artery. A 5-Guyanese sheath was placed in the right common femoral artery using the modified Seldinger technique. Under fluoroscopic guidance, coronary angiography was performed using a JL4 and JR4 preformed catheters. Left heart catheterization was performed using a JR4 catheter. All catheters were removed over a guidewire. Abdominal aortogram was performed using a 5-Guyanese Omniflush catheter. Subsequently, 0.035 inch Wholey wire was used to access the contralateral iliac artery through the Omniflush catheter and Omniflush catheter was advanced into the left common femoral artery. Further peripheral angiography was performed of the left lower extremity from this side. Decision was made to attempt peripheral intervention of the left superficial femoral artery, 100% DISTILLERY WORKER GENERAL starting at the ostium all the way past the previously placed stent for SATURATION EQUIPMENT OPERATOR of the left SFA. We exchanged the short 5-Guyanese sheath for a 6-Guyanese 45 cm Destination sheath to go up and over into the contralateral iliac artery. A 0.35 inch TXI support catheter as well as 0.018 inch Astado 30 guidewire was used to cross the proximal cap of the DISTILLERY WORKER GENERAL. We made good progress; however, were unable to make further progress near the previously placed stent. We exchanged the Astado for an 0.35 stiff glidewire and made further progress with a loop and going subintimal we attempted to reenter the true lumen just proximal to the previously placed stent using the Outback device; however, were unsuccessful in reentering the true lumen despite multiple attempts. At this point the procedure was aborted and decision was made to bring the patient back in the future with a different approach. The Destination sheath was removed over a Wholey wire and replaced with a 6-Guyanese short sheath. Peripheral angiography of the right lower extremity with runoff was performed through the short right femoral sheath. The arteriotomy site was closed using a 6-Guyanese Mynx closure device without any complications. FINDINGS: Left main coronary artery, large caliber, calcified with mild diffuse plaque, luminal irregularities only. Left anterior descending artery, a large vessel goes to the apex, patent mid LAD stent. Large diagonal one, mild diffuse plaquing with no significant stenoses. The left circumflex large, nondominant vessel. There is area of aneurysm in the mid circumflex before previously placed stent. Stent is patent without significant iFR, mild diffuse plaquing and calcification, no obstructive coronary artery disease. RCA, large dominant RCA. There is a small area of aneurysm and ectasia in the distal RCA without significant stenosis. Patent mid RCA stent. A medium sized RPDA and RPLV systems distally with mild diffuse plaquing. Peripheral angiography, left common iliac calcified luminal irregularities. Left external iliac calcified with no significant stenosis. Left common femoral calcified luminal irregularities, no significant stenoses. Left superficial femoral 100% DISTILLERY WORKER GENERAL at the ostium. There is a stent seen in the mid SFA and severe calcification noted for the entirety of the SFA. SFA reconstitutes very distally, very poor, almost nonexistent runoff seen below the knee. Right common iliac, no significant stenosis, calcified. Right external iliac no significant stenosis, calcified., Right superficial femoral artery severely calcified with diffuse disease of the right SFA all the way from the ostium down to the knee. Patent proximal SFA stent with moderate iFR. The right popliteal severely calcified with diffuse disease. Right anterior tibial is severely calcified with diffuse disease, very little flow past the proximal portion, likely DISTILLERY WORKER GENERAL. Right tibioperoneal vessels are severely diseased with very poor flow distally past the proximal portion. COMPLICATIONS: None. SPECIMEN REMOVED: None. IMPLANTS: None. ESTIMATED BLOOD LOSS: 50 mL. RECOMMENDATIONS: 1. Usual post PCI care. 2. Continue medical therapy and risk factor control with emphasis on smoking cessation. 3. Follow up in 2 weeks with me in the office post procedure and will discuss reattempting intervention of his superficial femoral arteries at that time. Job#: [id number]
[2018-07-02] MEDS: ONDANSETRON HCL INJ 2 MG/ML VIAL IV PRN (20:36)
--- NOTE | 2018-07-02 20:54 | Consultation ---
DATE OF CONSULTATION: July 01, 2018 REQUESTING PHYSICIAN: Dr. Burkett REASON FOR CONSULTATION: Evaluation of the patient for biventricular ICD upgrade. CHIEF COMPLAINT: Shortness of breath and fatigue. HISTORY OF PRESENT ILLNESS: Mr. Augustin is a 63-year-old man with a history of ischemic cardiomyopathy, ICD implant, acute on chronic renal insufficiency, atrial fibrillation permanent, and congestive heart failure NYHA functional class III with ejection fraction of 35% to 40% and was admitted to the hospital with worsening congestive heart failure exacerbation. The patient was admitted under the management of Dr. Burkett. The patient had coronary angiogram performed and no revascularization was done. We were consulted for possible biventricular ICD upgrade. The patient has chronic atrial fibrillation with left bundle-branch block. PAST MEDICAL HISTORY: As listed in the HPI. SOCIAL HISTORY: Negative for tobacco, alcohol, or drug abuse. FAMILY HISTORY: Negative for cardiac arrhythmias or congestive heart failure. REVIEW OF SYSTEMS: As that listed in HPI. Other 12-point review of systems is negative. PHYSICAL EXAMINATION VITALS: Blood pressure is 140/80, heart rate is 60, respiratory rate is 20, O2 saturations are 94% on room air. GENERAL: Mr. Augustin is a middle-aged appearing -Sol[place] Islander male in no acute distress. HEENT: Pupils are equal, round, and reactive to light. Mucous membranes are pink, moist, anicteric and acyanotic. NECK: He does have jugular venous distension. Otherwise, neck is supple. No thyromegaly. CARDIOVASCULAR: Irregular rhythm is noted. Soft systolic murmur heard at the left sternal border. LUNGS: Decreased breath sounds bilaterally. ABDOMEN: Soft, nondistended, and nontender with bowel sounds heard in all four quadrants. No hepatosplenomegaly noted. EXTREMITIES: 1+ pitting edema. LABORATORY STUDIES: Reviewed. IMPRESSION: Mr. Augustin is a gentleman with ischemic cardiomyopathy, ejection fraction of 35% to 40% with NYHA functional class III congestive heart failure, worsening symptomatologies, has orthopnea and paroxysmal nocturnal dyspnea and severe shortness of breath. He has a fairly large left bundle branch block on his EKG of 160 msec. Does not meet criteria for biventricular ICD implant. This would likely benefit his heart failure symptomatology and potentially his ejection fraction. I have discussed the risks, benefits, and alternatives with him at great length. He understands and is agreeable to proceed. Job#: [id number] WALT
[2018-07-03 00:50] VITALS: BP 139/85
[2018-07-03] MEDS: FAMOTIDINE 20 MG/2 ML VIAL IV SCH (04:16)
[2018-07-03] MEDS: HYDROMORPHONE 2MG/ML 2 MG/ML ML IV PRN (04:16)
[2018-07-03] MEDS: ONDANSETRON HCL INJ 2 MG/ML VIAL IV PRN (04:16)
[2018-07-03 04:35] VITALS: BP 119/88
[2018-07-03] MEDS: ACETAMINOPHEN 325 MG TAB PO PRN (07:13)
[2018-07-03] MEDS: INSULIN LISPRO 100 UNIT/1 ML 3ML VIAL SQ SCH ×2 (07:30→14:51)
[2018-07-03] MEDS: CARVEDILOL 12.5 MG TAB PO SCH (08:28)
[2018-07-03] MEDS: FUROSEMIDE 40 MG TAB PO SCH (08:28)
[2018-07-03] MEDS: GABAPENTIN 100 MG CAP PO SCH (08:28)
[2018-07-03] MEDS: LISINOPRIL 20 MG TAB PO SCH (08:28)
[2018-07-03] MEDS: LORATADINE 10 MG TAB PO SCH (08:28)
[2018-07-03] MEDS: ENOXAPARIN SOD INJ 40 MG/0.4 ML SYR SC SCH (08:29)
[2018-07-03] MEDS: TRAMADOL HCL 50 MG TAB PO SCH (08:29)
[2018-07-03] MEDS: NICOTINE 14 MG/EA PATCH TOP SCH (08:29)
[2018-07-03 09:13] VITALS: BP 129/89
[2018-07-03 13:15] VITALS: BP 134/82
[2018-07-03 13:49] LABS: BASOPHILS # (AUTO) 0.1 (0.0-0.1); BASOPHILS % 0.3 % (0.0-1.0); EOSINOPHILS # (AUTO) 0.6 (0.0-0.4); EOSINOPHILS % 4.2 % (0.0-6.0); HEMATOCRIT 50.5 % (38.2-49.6); HEMOGLOBIN 15.9 g/dL (14.0-18.0); LYMPHOCYTES # (AUTO) 0.6 (1.0-3.2); LYMPHOCYTES % 4.2 % (18.0-39.1); MEAN CORPUSCULAR HEMOGLOBIN 31.3 pg (28-32); MEAN CORPUSCULAR HGB CONC 31.5 g/dL (31-35); MEAN CORPUSCULAR VOLUME 99.4 fL (81-99); MONOCYTES # (AUTO) 0.8 (0.2-0.8); MONOCYTES % 5.1 % (4.4-11.3); NEUTROPHILS # (AUTO) 12.8 (2.1-6.9); NEUTROPHILS % 85.6 % (38.7-80.0); PLATELET COUNT 139 x10e3/uL (140-360); RED BLOOD COUNT 5.08 x10e6/uL (4.3-5.7); RED CELL DISTRIBUTION WIDTH 15.7 % (11.7-14.4)
[2018-07-03 13:58] LABS: ANION GAP 14.2 mmol/L (8-16); CALCIUM 9.5 mg/dL (8.4-10.2); CREATININE, SERUM 1.47 mg/dL (0.72-1.25); POTASSIUM 4.2 mmol/L (3.5-5.1)
[2018-07-04] MEDS ORDERED: NICOTINE PATCH1 EAC1 TD (10:44)
[2018-07-04] MEDS ORDERED: ASPIR 8181 MG PO (10:44)
[2018-07-04] MEDS ORDERED: [UNRECOGNIZED DRUG - OTHER] PO (10:44)
--- NOTE | 2018-07-04 12:11 | Discharge Summary ---
ADMIT DIAGNOSES 1. Non-ST elevation myocardial infarction. 2. Iqrkz-la-tkkxknk renal failure. 3. Urinary tract infection. 4. Chronic atrial fibrillation. 5. Coronary artery disease (history of previous stent placement). 6. Qkfhj-ib-vpwputd systolic congestive heart failure. 7. Peripheral arterial disease. 8. Type 2 diabetes mellitus. 9. Hypertensive heart disease. DISCHARGE DIAGNOSES 1. Status post left heart catheterization with diffuse nonobstructive coronary artery disease (no percutaneous coronary intervention warranted). 2. Status post biventricular ICD implant. 3. Ykvau-pv-vxvhrjp renal failure, resolving. 4. Visra-dt-ijfieug systolic congestive heart failure, resolving. 5. Sepsis secondary to Pseudomonas aeruginosa urinary tract infection, resolving. 6. Hematuria. 7. Type 2 diabetes mellitus. 8. Hypertensive heart disease. 9. Severe peripheral arterial disease. HOSPITAL COURSE: This is a 63-year-old male who initially was admitted to [facility] with diagnosis of hkted-ff-ksacita systolic congestive heart failure and Non-ST elevated myocardial infarction. The patient was also found to have mqsbk-dt-vcvcioa renal failure during this hospitalization. The patient's renal function on admission was 59 and 1.84 respectively. On the day of discharge, the patient's BUN and creatinine were 36 and 1.47 respectively. During this hospitalization, the patient was found to have Pseudomonas aeruginosa urinary tract infection confirmed by urine culture. The patient was seen by urology, Dr. Fitch, because of hematuria. The decision was to perform a tentative outpatient cystoscopy once the patient's cardiac issues were stabilized. During this hospitalization, the patient underwent a 2D echocardiogram which revealed left ventricular ejection fraction less than 20%. The patient was seen by cardiology, namely Dr. Helder Corea. The patient underwent a left heart catheterization performed by Dr. Eamon Burkett. The left heart catheterization revealed diffuse nonobstructive coronary artery disease, but no percutaneous coronary intervention was warranted. The patient was found to have significant right lower extremity peripheral arterial disease, which included the right superficial femoral artery as well as the right popliteal artery and right anterior tibial artery. Moreover, the patient was found to have severe peripheral arterial disease in the right tibioperoneal vessels. During this hospitalization, the patient was seen by an electrophysiology wind turbine engineer, namely Dr. Tejeda, who successfully placed a biventricular ICD implant. The patient tolerated the procedure well. CONDITION ON DISCHARGE: Stable. DISCHARGE MEDICATIONS: 1. Minocycline 100 mg p.o. b.i.d. for 7 days. 2. Ciprofloxacin 250 mg b.i.d. for 7 days. 3. Aspirin 81 mg daily. 4. Tramadol 50 mg t.i.d. 5. Nicotine patch 14 mg one patch daily. 6. Carvedilol 25 mg b.i.d. 7. Lisinopril 40 mg daily. 8. Lasix 40 mg b.i.d. 9. Gabapentin 100 mg t.i.d. FOLLOWUP INSTRUCTIONS: The patient is instructed to follow up with Dr. Corea on Friday, July 06, [address] Fitch within 2 weeks. Tobacco cessation was highly recommended to the patient. SUSAN RAHMAN MD Job#: [id number] cc: HELDER COREA MD cc: SHYANNE FITCH MD MTDD
--- NOTE | 2018-07-07 12:53 | Operative Report ---
DATE OF PROCEDURE: July 02, 2018 PREPROCEDURAL DIAGNOSES 1. Nonischemic cardiomyopathy. 2. Left bundle-branch block. 3. Chronic persistent atrial fibrillation. 4. [place] [employer] functional class III congestive heart failure. 5. Cardiomyopathy with ejection fraction of 20% to 25%. 6. History of single-chamber implantable cardioverter-defibrillator. POSTPROCEDURAL DIAGNOSES 1. Nonischemic cardiomyopathy. 2. Left bundle-branch block. 3. Chronic persistent atrial fibrillation. 4. [place] [employer] functional class III congestive heart failure. 5. Cardiomyopathy with ejection fraction of 20% to 25%. 6. History of single-chamber implantable cardioverter-defibrillator. PROCEDURES PERFORMED 1. Left subclavian venogram. 2. Coronary sinus venogram. 3. [employer] biventricular implantable cardioverter-defibrillator upgrade. 4. Moderate sedation. PROCEDURE IN DETAIL: Mr. Augustin was brought to the pathology laboratory aides teacher here at [facility] in a fasting and nonsedated state. The left pectoral region was prepped and draped in a sterile manner. Access to the axillary vein was made through the skin initially, and a guidewire was placed in this vein with the tip in the IVC. Once this was made, the pocket was reopened along the previous incision line with a combination of electrocautery and blunt and sharp dissection. The generator was removed from the pocket and the leads freed up from the underlying scar tissue. The capsule at the base of the pocket was excised and the pocket modified to hold a slightly larger size device. The wire was then tunneled into the pocket. A 9-Filipino sheath was placed over the guidewire through which an LV guiding sheath with an AL2 catheter and an 0.035 Wholey wire were used to cannulate the coronary sinus. An Acuity straight Quadripolar lead, model number 4671, serial number [id number], was implanted into the branch without complications. This was done after a balloon coronary sinus venogram was performed demonstrating an excellent mid lateral branch. A straight lead was placed over the wire, model number 187888, Quadripolar number 4671. Adequate pacing and sensing parameters were noted. The sheaths were peeled away. The lead was secured to the underlying fascia with #0 silk. The pocket was irrigated with antibiotic-containing normal saline, and the leads were connected to a Dillon V I O STEAM SHOVEL ENGINEER-D generator, model number G158, serial number [id number]. The generator and leads were then placed in the pocket and secured to the underlying fascia with #0 silk. The pocket was closed in 3 layers with 2-0 Vicryl for the deep and subcutaneous layers and 4-0 Vicryl for the skin. Dermabond was placed for additional skin approximation. DEVICE DATA: Right ventricle has R-waves of 15.1 mV, threshold of 0.7 volts, pulse width 0.5 msec, pacing impedance of 424 ohms, and shock impedance of 53 ohms. The left ventricular lead has threshold of 0.8 volts, pulse width of 0.5 msec, pacing impedance of 855 ohms. CONCLUSIONS 1. Successful implantation of a [employer] upgrade of a single-chamber implantable cardioverter-defibrillator to a biventricular implantable cardioverter-defibrillator. 2. No complications. Job#: [id number]
== END 2018-07-03 15:53 | disposition home or self-care (01) | DRG 222 ==
LOC: ER 19:55 → ERHOLD 06-25 04:12 → MED/SURG2 06-25 21:04
PROC: 4A023N7 Measurement of Cardiac Sampling and Pressure, Left Heart, Percutaneous Approach (ICD-10-PCS; principal; 2018-07-02)
PROC: B2111ZZ Fluoroscopy of Multiple Coronary Arteries using Low Osmolar Contrast (ICD-10-PCS; 2018-07-02)
PROC: B2151ZZ Fluoroscopy of Left Heart using Low Osmolar Contrast (ICD-10-PCS; 2018-07-02)
PROC: 0JH609Z Insertion of Cardiac Resynchronization Defibrillator Pulse Generator into Chest Subcutaneous Tissue and Fascia, Open Approach (ICD-10-PCS; 2018-07-02)
PROC: B40D1ZZ Plain Radiography of Aorta and Bilateral Lower Extremity Arteries using Low Osmolar Contrast (ICD-10-PCS; 2018-07-02)
PROC: 02HL3KZ Insertion of Defibrillator Lead into Left Ventricle, Percutaneous Approach (ICD-10-PCS; 2018-07-02)
PROC: 0JPT0PZ Removal of Cardiac Rhythm Related Device from Trunk Subcutaneous Tissue and Fascia, Open Approach (ICD-10-PCS; 2018-07-02)
PROC: 02PA3MZ Removal of Cardiac Lead from Heart, Percutaneous Approach (ICD-10-PCS; 2018-07-02)
PROC: 02HK3KZ Insertion of Defibrillator Lead into Right Ventricle, Percutaneous Approach (ICD-10-PCS; 2018-07-02)
DX: I13.0 Hypertensive heart and chronic kidney disease with heart failure and stage 1 through stage 4 chronic kidney disease, or unspecified chronic kidney disease (principal); I21.4 Non-ST elevation (NSTEMI) myocardial infarction; I50.23 Acute on chronic systolic (congestive) heart failure; N39.0 Urinary tract infection, site not specified; N17.9 Acute kidney failure, unspecified; I48.1 Persistent atrial fibrillation; R31.0 Gross hematuria; E11.22 Type 2 diabetes mellitus with diabetic chronic kidney disease; N18.3 Chronic kidney disease, stage 3 (moderate); I77.89 Other specified disorders of arteries and arterioles; I48.2 Chronic atrial fibrillation; Z79.01 Long term (current) use of anticoagulants; I73.9 Peripheral vascular disease, unspecified; Z83.3 Family history of diabetes mellitus; Z82.49 Family history of ischemic heart disease and other diseases of the circulatory system; I25.10 Atherosclerotic heart disease of native coronary artery without angina pectoris; Z95.810 Presence of automatic (implantable) cardiac defibrillator; Z72.0 Tobacco use; Z95.5 Presence of coronary angioplasty implant and graft; I25.2 Old myocardial infarction; E11.51 Type 2 diabetes mellitus with diabetic peripheral angiopathy without gangrene; N20.0 Calculus of kidney; B96.5 Pseudomonas (aeruginosa) (mallei) (pseudomallei) as the cause of diseases classified elsewhere; I44.7 Left bundle-branch block, unspecified
CPT/HCPCS: 33225; 33249; 36247; 36415; 71045; 74176; 75625; 75710; 80048; 80053; 80061; 81001; 82550; 82553; 82948; 83735; 84484; 85025; 85347; 85610; 85730; 87086; 87186; 93005; 93306; 93458; 93925; 99284; C1769; J0696; J1644; J1650; J2001; J2185; J2250; J2270; J2405; J3370; J7030; J7040; Q9967

== ENCOUNTER 2018-07-04 04:47 | Inpatient (IN) | payer MEDICARE ==
[~2018-07-04] VITALS: Ht 175.3 cm; Wt 88.9 kg
[2018-07-04] VITALS (7 sets, daily range): BP systolic 112–132; BP diastolic 77–85
[~2018-07-04 04:47] MED LIST: COREG12.5 MG; GABAPENTIN100 MG; LASIX40 MG PO; LISINOPRIL10 MG PO; LORATADINE10 MG PO; PLAVIX75 MG PO; TRAMADOL HCL100 MG
[2018-07-04] MEDS ORDERED: ONDANSETRON HCL INJ 2 MG/ML VIAL IV STA (05:09)
[2018-07-04] MEDS ORDERED: MORPHINE SULFATE 2 MG/ML SYR IV STA (05:09)
[2018-07-04] MEDS ORDERED: MORPHINE SULFATE 2 MG/ML SYR ONE (06:01)
[2018-07-04] MEDS ORDERED: ONDANSETRON HCL INJ 2 MG/ML VIAL ONE (06:01)
[2018-07-04 06:19] LABS: ALANINE AMINOTRANSFERASE 19 IU/L (0-55); ALBUMIN 2.5 g/dL (3.5-5.0); ALBUMIN/GLOBULIN RATIO 0.5 (0.8-2.0); ALKALINE PHOSPHATASE 111 IU/L (40-150); ANION GAP 17.5 mmol/L (8-16); BLOOD UREA NITROGEN 40 mg/dL (7-26); BUN/CREATININE RATIO 30 (6-25); CALCIUM 9.5 mg/dL (8.4-10.2); CARBON DIOXIDE 23 mmol/L (22-29); CHLORIDE 102 mmol/L (98-107); CREATINE KINASE 306 IU/L (30-200); CREATININE, SERUM 1.33 mg/dL (0.72-1.25); EST GLOMERULAR FILTRATION RATE > 60 ML/MIN (60-); GLUCOSE 200 mg/dL (74-118); MAGNESIUM 1.5 MG/DL (1.3-2.1); POTASSIUM 4.5 mmol/L (3.5-5.1); SODIUM 138 mmol/L (136-145)
[2018-07-04 06:23] LABS: PARTIAL THROMBOPLASTIN TIME 34.6 seconds (23.8-35.5)
[2018-07-04 06:46] LABS: BASOPHILS # (AUTO) 0.1 (0.0-0.1); BASOPHILS % 0.3 % (0.0-1.0); EOSINOPHILS # (AUTO) 0.7 (0.0-0.4); EOSINOPHILS % 3.7 % (0.0-6.0); HEMATOCRIT 49.6 % (38.2-49.6); HEMOGLOBIN 15.7 g/dL (14.0-18.0); LYMPHOCYTES # (AUTO) 0.8 (1.0-3.2); LYMPHOCYTES % 4.4 % (18.0-39.1); MEAN CORPUSCULAR HEMOGLOBIN 31.1 pg (28-32); MEAN CORPUSCULAR HGB CONC 31.7 g/dL (31-35); MEAN CORPUSCULAR VOLUME 98.2 fL (81-99); MONOCYTES # (AUTO) 0.9 (0.2-0.8); MONOCYTES % 5.4 % (4.4-11.3); NEUTROPHILS # (AUTO) 14.9 (2.1-6.9); NEUTROPHILS % 85.7 % (38.7-80.0); PLATELET COUNT 134 x10e3/uL (140-360); RED BLOOD COUNT 5.05 x10e6/uL (4.3-5.7); RED CELL DISTRIBUTION WIDTH 15.7 % (11.7-14.4)
[2018-07-04 07:00] LABS: INR 1.5
[2018-07-04 07:17] LABS: B-TYPE NATRIURETIC PEPTIDE2 1221.2 pg/mL (0-100)
[2018-07-04] MEDS ORDERED: ONDANSETRON HCL INJ 2 MG/ML VIAL IV PRN (07:30)
[2018-07-04 07:42] LABS: CLARITY,URINE CLEAR (CLEAR); COLOR,URINE AMBER (YELLOW); KETONES,URINE NEGATIVE (NEGATIVE); LEUKOCYTE ESTERASE ,URINE NEGATIVE (NEGATIVE); NITRITE,URINE NEGATIVE (NEGATIVE); PROTEIN,URINE DIPSTICK 1+ (NEGATIVE)
[2018-07-04 07:43] LABS: BILIRUBIN,URINE 1+ (NEGATIVE); URINE UROBILINOGEN 0.2 mg/dL (0.2 - 1)
[2018-07-04 08:02] LABS: BACTERIA,URINE FEW /HPF; HYALINE CASTS 0-1 (0-1)
[2018-07-04] MEDS ORDERED: FAMOTIDINE 20 MG/2 ML VIAL IV ONE (09:55)
[2018-07-04] MEDS ORDERED: FUROSEMIDE INJ 10 MG/ML 4 ML VIAL ONE (09:55)
[2018-07-04] MEDS ORDERED: CEFEPIME HCL 1 GM VIAL ONE (09:55)
[2018-07-04] MEDS: FAMOTIDINE 20 MG/2 ML VIAL IV SCH ×2 (09:58→19:30)
[2018-07-04] MEDS: CEFEPIME HCL 1 GM VIAL IV SCH ×2 (09:58→19:15)
[2018-07-04] MEDS ORDERED: FUROSEMIDE INJ 10 MG/ML 4 ML VIAL IV ONE (10:00)
--- NOTE | 2018-07-04 10:35 | Diagnostic Imaging Report ---
Jermaine Augustin [birth year] EXAM: XR CHEST 1 VIEW DATE: 07/04/2018 8:47 AM INDICATION: COMPARISON: None FINDINGS: Lines and Tubes: Left chest wall ICD. Heart and Mediastinum: Enlarged. Lungs and Pleura: Moderate edema. Bones and Soft Tissues: No acute findings. IMPRESSION: Cardiomegaly with moderate edema. Pulmonary report faxed at [phone] on 07/04/2018. Signed by: Dr. Deon Ortiz MD on 07/04/2018 10:32 AM
[2018-07-04] MEDS ORDERED: [UNRECOGNIZED DRUG - OTHER] PO (10:44)
[2018-07-04] MEDS ORDERED: ASPIR 8181 MG PO (10:44)
[2018-07-04] MEDS ORDERED: NICOTINE PATCH1 EAC1 TD (10:44)
[2018-07-04] MEDS: MORPHINE SULFATE 2 MG/ML SYR IV PRN ×3 (10:59→22:14)
[2018-07-04] MEDS ORDERED: DEXTROSE 50% SYRINGE 50 ML IV PRN (12:15)
[2018-07-04] MEDS: INSULIN LISPRO 100 UNIT/1 ML 3ML VIAL SQ SCH ×3 (12:30→21:00)
[2018-07-04] MEDS: FUROSEMIDE INJ 10 MG/ML 4 ML VIAL IV SCH ×2 (12:47→20:13)
[2018-07-04] MEDS: MINOCYCLINE HCL 50 MG CAP PO SCH ×2 (12:47→20:13)
[2018-07-04] MEDS: ASPIRIN 81 MG ENTERIC COATED PO SCH (12:47)
--- NOTE | 2018-07-04 13:19 | History and Physical ---
CHIEF COMPLAINT: Chest pain and shortness of breath. HISTORY OF PRESENT ILLNESS: This is a 63-year-old man who was actually just discharged from [facility] yesterday, Thursday, July 03, 2018. He was hospitalized for 8 days here at [facility] because of acute heart failure as well as a Cil-BB-dgjuxhlv myocardial infarction. During this last hospitalization, the patient underwent a left heart catheterization performed by Dr. Eamon Burkett that revealed diffuse nonobstructive coronary artery disease, but no percutaneous coronary intervention was warranted. The patient also was seen by electrophysiology administrative receptionist, namely Dr. Tejeda, who performed a successful biventricular ICD upgrade. The patient also was diagnosed with Pseudomonas aeruginosa urinary tract infection during this last hospitalization. The patient states that 4 hours after discharge, he began experiencing orthopnea as well as left-sided chest pain. In the emergency room, the patient had an EKG that revealed demand pacemaker rhythm as well as findings consistent with atrial fibrillation and right bundle branch block. No acute ischemic changes were appreciated though. However, in the emergency room, the patient was found to have a troponin I of 1.176. The patient's B-natriuretic peptide was elevated at 1221. The patient's BUN and creatinine were 40 and 1.33 respectively. The patient's white blood cell count was 17,300 with 85% segmented neutrophils. The patient had a chest x-ray done in the emergency room which revealed cardiomegaly with moderate pulmonary edema. Urinalysis performed in the emergency room revealed 11-20 red cells per high power field, and 6-10 white blood cells per high power field and a few bacteria. The patient was admitted for further evaluation and treatment. The patient underwent a 2D echocardiogram last week here at [facility] which revealed a left ventricular ejection fraction of less than 20%. PAST MEDICAL HISTORY: 1. Coronary artery disease. 2. Severe right lower extremity peripheral arterial disease. 3. Dlm-CZ-mrttzdlin myocardial infarction diagnosed last week. 4. Stage 3 chronic kidney disease. 5. Chronic systolic congestive heart failure. 6. Hypertensive heart disease. 7. Tobacco abuse. 8. Pseudomonas aeruginosa urinary tract infection. 9. Type 2 diabetes mellitus. PAST SURGICAL HISTORY: 1. Two coronary stents placed in 2013. 2. Right lower extremity arterial stents placed also in 2013. 3. AICD implantation. 4. Biventricular AICD upgrade on July 02, 2018. ALLERGIES: STATINS. STATINS CAUSES SEVERE MYALGIAS. FAMILY HISTORY: Mother and father had coronary artery disease. SOCIAL HISTORY: The patient lives in his house with a lady friend. 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 The patient is a heavy tobacco smoker, but states that he will quit immediately. The patient denies any alcohol or illicit drug use. HOME MEDICATIONS: (The medications that were given to the patient on discharge yesterday). 1. Minocycline 100 mg p.o. b.i.d. for 7 days. 2. Ciprofloxacin 250 mg b.i.d. for 7 days. 3. Aspirin 81 mg daily. 4. Tramadol 50 mg t.i.d. 5. Nicotine patch 14 mg one patch daily. 6. Carvedilol 25 mg b.i.d. 7. Lisinopril 40 mg daily. 8. Lasix 40 mg b.i.d. 9. Gabapentin 100 mg t.i.d. REVIEW OF SYSTEMS: The patient states that his weight has been stable. PHYSICAL EXAMINATION GENERAL: He is awake, alert, pleasant and cooperative with exam. VITAL SIGNS: Height 5 feet 9 inches, weight 196 pounds, BMI is 29. Blood pressure is 129/85, pulse 80, respiratory rate 18, oxygen saturation 95% on 1 liter of oxygen. Temperature 97.1. INTEGUMENT: Skin is warm and dry. No pallor, jaundice, diaphoresis. HEENT: Anicteric sclerae with moist mucous membranes. NECK: Supple with no evidence of jugular venous distention. CARDIOVASCULAR: Distant heart sounds. Regular rate with irregular rhythm. The patient has a systolic ejection murmur and S3 gallop. EXTREMITIES: No edema. He has poor pulses in the bilateral dorsal pedis area. DIAGNOSES 1. Njtnc-iu-ojemijx systolic congestive heart failure. 2. Sepsis secondary to Pseudomonas aeruginosa urinary tract infection. 3. Non-ST elevation myocardial infarction, resolving. 4. Coronary artery disease (history of previous coronary stent in 2013). 5. Stage 3 chronic kidney disease. 6. Type 2 diabetes mellitus. 7. Hypertension heart disease. 8. Status post biventricular ICD upgrade (July 02, 2018). PLAN: 1. Intravenous furosemide. 2. Intravenous cefepime. 3. Pain control. 4. Continue oral minocycline since the patient had recent ICD implantation. 5. Will ask for a long-term acute care evaluation since this gentleman will require intravenous furosemide and daily physician visits for at least the next 2 weeks. I spent an hour in the care of this patient. Job#: [id number] GH MTDD
[2018-07-04] MEDS: NICOTINE 14 MG/EA PATCH TOP SCH (13:31)
[2018-07-04 13:54] LABS: CREATINE KINASE MB 7.2 ng/mL (0-5.0)
[2018-07-04] MEDS: TRAMADOL HCL 50 MG TAB PO SCH ×2 (14:35→20:13)
[2018-07-04] MEDS: GABAPENTIN 100 MG CAP PO SCH ×2 (14:35→20:13)
--- NOTE | 2018-07-04 15:23 | Progress Note ---
DATE: July 04, 2018 CARDIOLOGY PROGRESS NOTE SUBJECTIVE: Mr. Augustin has returned after being discharged within 12 hours with chest pain. However, his cardiac enzymes are improved. OBJECTIVE VITAL SIGNS: Afebrile. Heart rate 80. Blood pressure 129/85. CARDIOVASCULAR: Regular rhythm. S3 gallop. LUNGS: Clear to auscultation bilaterally. EXTREMITIES: Pedal pulses could not be felt. 1+ edema, left leg. WBC count 17,000. Creatinine 1.33. Troponin 1.17. BNP 1221. ASSESSMENT: 1. Acute on chronic systolic heart failure. 2. Unstable angina, status post biventricular AICD upgrade. 3. 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 PLAN: The patient needs intravenous Lasix and antibiotics for his sepsis as well as heart failure. At this point, long-term acute care is appropriate. I discussed this with the patient and Dr. Aldana. Additionally, the patient required re-look angiography for his left leg femoral artery occlusion. Job#: [id number]
[2018-07-04] MEDS: CARVEDILOL 12.5 MG TAB PO SCH (17:10)
[2018-07-04 23:56] LABS: CREATINE KINASE MB 7.5 ng/mL (0-5.0)
[2018-07-05 00:49] VITALS: BP 128/76
[2018-07-05] MEDS: MORPHINE SULFATE 2 MG/ML SYR IV PRN (01:27)
[2018-07-05 04:46] LABS: BASOPHILS # (AUTO) 0.1 (0.0-0.1); BASOPHILS % 0.6 % (0.0-1.0); EOSINOPHILS # (AUTO) 0.8 (0.0-0.4); EOSINOPHILS % 7.6 % (0.0-6.0); HEMATOCRIT 46.2 % (38.2-49.6); HEMOGLOBIN 14.8 g/dL (14.0-18.0); LYMPHOCYTES # (AUTO) 0.7 (1.0-3.2); LYMPHOCYTES % 6.9 % (18.0-39.1); MEAN CORPUSCULAR HEMOGLOBIN 30.8 pg (28-32); MONOCYTES # (AUTO) 0.8 (0.2-0.8); MONOCYTES % 7.3 % (4.4-11.3); NEUTROPHILS # (AUTO) 8.3 (2.1-6.9); NEUTROPHILS % 77.1 % (38.7-80.0); PLATELET COUNT 144 x10e3/uL (140-360); RED BLOOD COUNT 4.81 x10e6/uL (4.3-5.7); RED CELL DISTRIBUTION WIDTH 15.4 % (11.7-14.4)
[2018-07-05 05:10] LABS: ALANINE AMINOTRANSFERASE 18 IU/L (0-55); ALBUMIN 2.2 g/dL (3.5-5.0); ALBUMIN/GLOBULIN RATIO 0.5 (0.8-2.0); ALKALINE PHOSPHATASE 101 IU/L (40-150); ANION GAP 13.6 mmol/L (8-16); BLOOD UREA NITROGEN 38 mg/dL (7-26); BUN/CREATININE RATIO 32 (6-25); CARBON DIOXIDE 27 mmol/L (22-29); CHLORIDE 101 mmol/L (98-107); CHOL/HDL RATIO 3.1 (3.9-4.7); CHOLESTEROL 72 MD/DL (0-199); CREATININE, SERUM 1.19 mg/dL (0.72-1.25); EST GLOMERULAR FILTRATION RATE > 60 ML/MIN (60-); GLUCOSE 137 mg/dL (74-118); HDL CHOLESTEROL 23 MG/DL (40-60); LDL CHOLESTEROL 37 MG/DL (60-130); POTASSIUM 3.6 mmol/L (3.5-5.1); SODIUM 138 mmol/L (136-145); TRIGLYCERIDES 60 MG/DL (0-149)
[2018-07-05 05:58] VITALS: BP 123/79
[2018-07-05] MEDS: CEFEPIME HCL 1 GM VIAL IV SCH ×2 (07:15→20:32)
[2018-07-05] MEDS: FAMOTIDINE 20 MG/2 ML VIAL IV SCH ×2 (07:30→20:32)
[2018-07-05] MEDS: INSULIN LISPRO 100 UNIT/1 ML 3ML VIAL SQ SCH ×4 (07:30→20:16)
[2018-07-05 07:58] VITALS: BP 127/82
[2018-07-05 08:00] VITALS: BP 172/84
[2018-07-05] MEDS: CARVEDILOL 12.5 MG TAB PO SCH ×2 (08:00→16:39)
[2018-07-05] MEDS ORDERED: NICOTINE 14 MG/EA PATCH TOP SCH (09:00)
[2018-07-05] MEDS: MINOCYCLINE HCL 50 MG CAP PO SCH ×2 (09:00→20:32)
[2018-07-05] MEDS: GABAPENTIN 100 MG CAP PO SCH ×3 (09:00→20:32)
[2018-07-05] MEDS: NICOTINE 14 MG/EA PATCH TOP SCH (09:00)
[2018-07-05] MEDS: ASPIRIN 81 MG ENTERIC COATED PO SCH (09:00)
[2018-07-05] MEDS: FUROSEMIDE INJ 10 MG/ML 4 ML VIAL IV SCH ×2 (09:00→20:32)
[2018-07-05] MEDS: TRAMADOL HCL 50 MG TAB PO SCH ×3 (09:00→20:33)
[2018-07-05] MEDS ORDERED: ASPIRIN 81 MG CHEW TAB PO SCH (09:00)
[2018-07-05] MEDS ORDERED: LISINOPRIL 20 MG TAB PO SCH (09:00)
[2018-07-05 11:52] VITALS: BP 115/73
[2018-07-05] MEDS: HYDROMORPHONE 2MG/ML 2 MG/ML ML IV PRN ×3 (12:30→20:33)
[2018-07-05 16:08] VITALS: BP 130/81
--- NOTE | 2018-07-05 19:02 | Progress Note ---
DATE: July 05, 2018 CARDIOLOGY PROGRESS NOTE SUBJECTIVE: The patient denies chest pain or shortness of breath. He is complaining of a blister on his chest from his pressure dressing. OBJECTIVE VITAL SIGNS: Temperature 97.9 degrees, pulse 80, respiratory rate 18, blood pressure 115/73, oxygen saturation 97% on room air. GENERAL: Awake, alert and in no acute distress. LUNGS: Clear to auscultation bilaterally. No wheezes or crackles. CARDIOVASCULAR: Normal rate, regular rhythm. No murmurs. Normal S1 and S2. CHEST: Left chest with dressing clean, dry and intact. Fluid-filled blister is noted below the site of the pacemaker dressing. ABDOMEN: Soft and nontender. EXTREMITIES: 1+ edema. CARDIAC MEDICATIONS: 1. Carvedilol 25 mg p.o. b.i.d. 2. Lisinopril 40 mg p.o. daily. 3. Furosemide 40 mg IV q.12 h. 4. Aspirin 81 mg p.o. daily. LABORATORY DATA: WBC 10.8, hemoglobin 14.8, hematocrit 46.2, platelets 144,000, sodium 138, potassium 3.6, chloride 101, CO2 of 27, BUN 38, creatinine 1.19. Troponin 1.029. TELEMETRY: V-paced. IMPRESSION 1. Nbilo-de-fxdpyds systolic heart failure. 2. Severe systolic heart failure, status post BiV ICD upgrade. 3. Severe peripheral arterial disease with severe stenosis of the right superficial femoral artery as well as FACILITY MAINTENANCE WORKER of the left superficial femoral artery. 4. Coronary artery disease. 5. Elevated troponin. 6. Chronic kidney disease. 7. Atrial fibrillation on anticoagulation. 8. Diabetes mellitus. 9. Hypertension. RECOMMENDATIONS: Continue current cardiac medications. Agree with intravenous diuresis given his tqimp-sf-fhdjcvd systolic heart failure. The patient will need repeat peripheral angiogram and attempted intervention of his left femoral artery scheduled as an outpatient. Antibiotics per infectious disease. Monitor the patient on telemetry. Thank you for this consult. We will continue to follow. Job#: [id number] GH MTDLázaro
== END 2018-07-05 20:56 | DRG 871 ==
LOC: ER 04:47 → ERHOLD 07:16 → MED/SURG2 10:08
DX: A41.52 Sepsis due to Pseudomonas (principal); I50.23 Acute on chronic systolic (congestive) heart failure; I21.3 ST elevation (STEMI) myocardial infarction of unspecified site; I21.4 Non-ST elevation (NSTEMI) myocardial infarction; I13.0 Hypertensive heart and chronic kidney disease with heart failure and stage 1 through stage 4 chronic kidney disease, or unspecified chronic kidney disease; N39.0 Urinary tract infection, site not specified; I25.110 Atherosclerotic heart disease of native coronary artery with unstable angina pectoris; N18.3 Chronic kidney disease, stage 3 (moderate); E11.22 Type 2 diabetes mellitus with diabetic chronic kidney disease; E11.51 Type 2 diabetes mellitus with diabetic peripheral angiopathy without gangrene; Z79.4 Long term (current) use of insulin; I48.91 Unspecified atrial fibrillation; Z95.820 Peripheral vascular angioplasty status with implants and grafts; E78.5 Hyperlipidemia, unspecified; Z95.5 Presence of coronary angioplasty implant and graft; F17.210 Nicotine dependence, cigarettes, uncomplicated; Z95.810 Presence of automatic (implantable) cardiac defibrillator
CPT/HCPCS: 36415; 71045; 80053; 80061; 81001; 82550; 82553; 82948; 83605; 83735; 83880; 84484; 85025; 85610; 85730; 87040; 87086; 93005; 99284; J0692; J1940; J2270; J2405

== ENCOUNTER 2018-09-10 15:45 | Inpatient (IN) | payer MEDICARE ==
[~2018-09-10] VITALS: Ht 175.3 cm; Wt 89.2 kg
[~2018-09-10 15:45] MED LIST changes: +ASPIR 8181 MG PO; +NICOTINE PATCH1 EAC1 TD; +[UNRECOGNIZED DRUG - OTHER] PO
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
--- OUTSIDE RECORDS SUMMARY | 2018-09-10 15:49 | XMS REPORT | CCD ---
Author Author Auto Generated Organization [facility] Address Unknown Phone Unavailable Care Team Providers Care Track Production Engineer Name Role Phone Jo Patel CP Allergies, Adverse Reactions, Alerts Substance Reaction Status NKDA Active Problem List Condition Effective Dates Status Atrial fibrillation Active Diabetes mellitus Active Dyslipidemia Active Heart attack Active Hepatitis C Active Hypertension Active Medications Medication Instructions Start Date End Date Status ketorolac 30 mg, 1 mL, Route: IVP, Drug form: 04/13/2013 04/13/2013 Completed INJ, ONCE, Dosing Weight 88.182, kg, Priority: STAT, Start date: 04/13/13 15:52:00, Stop date: 04/13/13 15:52:00 Flexeril 10 mg oral 10 mg, 1 tab, PO, TID, PRN, 30 tab, 04/13/2013 Ordered tablet for spasm, Substitution Allowed, TAB [place] 5/325 oral 1 tab, PO, Q4H, PRN, 15 tab, for 04/13/2013 Ordered tablet pain, Substitution Allowed, Maintenance, TAB Coumadin Substitution Allowed 04/13/2013 Ordered enalapril Substitution Allowed 04/13/2013 Ordered Plavix Substitution Allowed 04/13/2013 Ordered metFORmin Substitution Allowed 04/13/2013 Ordered Zetia Substitution Allowed 04/13/2013 Ordered aspirin Substitution Allowed 04/13/2013 Ordered Lasix Substitution Allowed 04/13/2013 Ordered Saline Flush 0.9% 5 mL, Route: IVP, Drug Form: INJ, 04/13/2013 04/13/2013 Discontinued Dosing Weight 88.182, kg, PRN, PRN Line Flush, Start date: 04/13/13 14:38:00, Duration: 30 day, Stop date: 05/13/13 14:37:00 Vital Signs Most recent to oldest [Reference Range]: 1 Height 175.26 cm (04/13/2013 13:53:00) Weight 88.182 kg (04/13/2013 13:53:00) Results URINALYSIS Most recent to oldest [Reference Range]: 1 UA Turbidity [Clear] Clear (04/13/2013 16:45:00) UA Color [Yellow] Yellow *NA* (04/13/2013 16:45:00) UA pH [5.0-8.0] 7.0 (04/13/2013 16:45:00) UA Spec Grav [<=1.030] 1.010 (04/13/2013 16:45:00) UA Glucose [Negative] Negative (04/13/2013 16:45:00) UA Blood [Negative] Trace *ABN* (04/13/2013 16:45:00) UA Ketones [Negative] Trace *ABN* (04/13/2013 16:45:00) UA Protein [Negative] Negative (04/13/2013 16:45:00) UA Urobilinogen [0.1-1.0 EU/dL] 1.0 EU/dL (04/13/2013 16:45:00) UA Bili [Negative] Negative *NA* (04/13/2013 16:45:00) UA Leuk Est [Negative] Negative (04/13/2013 16:45:00) UA Nitrite [Negative] Negative (04/13/2013 16:45:00) UA WBC [None Seen /HPF] 0-2 /HPF (04/13/2013 16:45:00) UA RBC [0-2 /HPF] 0-2 /HPF (04/13/2013 16:45:00) UA Bacteria [None Seen /HPF] Occasional /HPF (04/13/2013 16:45:00) UA Sq Epi [Few /LPF] Rare /LPF (04/13/2013 16:45:00) UA Mucus [None Seen] None Seen (04/13/2013 16:45:00) Micro? Performed (04/13/2013 16:45:00) CHEMISTRY Most recent to oldest [Reference Range]: 1 Sodium Lvl [135-145 mEq/L] 141 mEq/L (04/13/2013 14:10:00) Potassium Lvl [3.5-5.1 mEq/L] 4.0 mEq/L (04/13/2013 14:10:00) Chloride Lvl [95-109 mEq/L] 105 mEq/L (04/13/2013:) CO2 [24-32 mEq/L] 28 mEq/L (04/13/2013) AGAP [10.0-20.0 mEq/L] 12.0 mEq/L (04/13/2013:) Creatinine Lvl [0.5-1.4 mg/dL] 1.3 mg/dL (04/13/2013) eGFR 70 mL/min/1.73m2 1 *NA* (04/13/2013) BUN [7-22 mg/dL] 14 mg/dL (04/13/2013) Glucose Lvl [70-99 mg/dL] 135 mg/dL 2 *HI* (04/13/2013) Calcium Lvl [8.5-10.5 mg/dL] 8.7 mg/dL (04/13/2013:) 1Result Comment: The eGFR is calculated using [...] from the National Kidney Disease Education Program ( NKDEP) which additionally recommends that when the eGFR is used in patients with extremes of body mass index for purposes of drug dosing, the eGFR should be mul tiplied by the estimated BMI. 2Interpretive Data: Adult reference range values reflect the clinical guidelines of the [place] [employer]. HEMATOLOGY Most recent to oldest [Reference Range]: 1 WBC [3.7-10.4 K/CMM] 7.7 K/CMM (04/13/2013:10:00) RBC [4.70-6.10 M/CMM] 4.96 M/CMM (04/13/2013:10) Hgb [14.0-18.0 g/dL] 15.3 g/dL (04/13/2013 14:10:) Hct [42.0-54.0 %] 48.1 % (04/13/2013:) MCV [80.0-94.0 fL] 97.0 fL *HI* (04/13/2013:) MCH [27.0-31.0 pg] 30.9 pg (04/13/2013:) MCHC [32.0-36.0 g/dL] 31.8 g/dL *LOW* (04/13/2013:) RDW [11.5-14.5 %] 14.1 % (04/13/2013:) Platelet [133-450 K/CMM] 143 K/CMM (04/13/2013:) MPV [7.4-10.4 fL] 9.5 fL (04/13/2013:) Segs [45.0-75.0 %] 60.5 % (04/13/2013:) Lymphocytes [20.0-40.0 %] 27.4 % (04/13/2013:10:) Monocytes [2.0-12.0 %] 9.3 % (04/13/2013:10:) Eosinophils [0.0-4.0 %] 2.3 % (04/13/2013::) Basophils [0.0-1.0 %] 0.5 % (04/13/2013:) Segs-Bands # [1.5-8.1 K/CMM] 4.6 K/CMM (04/13/2013:10:00) Lymphocytes # [1.0-5.5 K/CMM] 2.1 K/CMM (04/13/2013:) Monocytes # [0.0-0.8 K/CMM] 0.7 K/CMM (04/13/2013 14:10:00) Eosinophils # [0.0-0.5 K/CMM] 0.2 K/CMM (04/13/2013 14:10:00) Basophils # [0.0-0.2 K/CMM] 0.0 K/CMM (04/13/2013 14:10:00) PT [12.0-14.7 seconds] 20.7 seconds *HI* (04/13/2013 14:10:00) INR [0.85-1.17] 1.77 3 *HI* (04/13/2013 14:10:) PTT [22.9-35.8 seconds] 34.8 seconds 4 (04/13/2013 14:10:00) 3Interpretive Data: RECOMMENDED RANGES FOR PROTIME INR: 2.0-3.0 for most medical and surgical thromboembolic states. 2.5-3.5 for artificial heart valves and recurrent embolism. INR SHOULD BE USED ONLY FOR PATIENTS ON STABLE ANTICOAGULANT THERAPY. 4Interpretive Data: Heparin Therapeutic Range: 57 - 92 Seconds Procedures Procedures Date Related Diagnosis Cardiac angiogram Miscellaneous operations 1 Miscellaneous operations 2 1left arm 2heart stents
--- NOTE | 2018-09-10 16:35 | Diagnostic Imaging Report ---
EXAMINATION: CHEST 2 VIEWS INDICATION: Chest pain. Shortness of breath. COMPARISON: July 04, 2018 FINDINGS: TUBES and LINES: Left anterior chest dual lead cardiac device LUNGS: Lungs are well inflated. Mild pulmonary edema improved when compared with the prior exam PLEURA: No pleural effusion or pneumothorax. HEART AND MEDIASTINUM: Cardiomegaly with pulmonary vascular congestion. BONES AND SOFT TISSUES: No acute osseous lesion. Soft tissues are unremarkable. UPPER ABDOMEN: No free air under the diaphragm. IMPRESSION: Cardiomegaly with pulmonary vascular congestion and mild pulmonary edema improved when compared with the prior exam. Signed by: Dr. Jasper Vásquez M.D. on 09/10/2018 4:32 PM
[2018-09-10 16:48] LABS: BASOPHILS # (AUTO) 0.1 (0.0-0.1); BASOPHILS % 0.9 % (0.0-1.0); EOSINOPHILS # (AUTO) 0.2 (0.0-0.4); EOSINOPHILS % 2.8 % (0.0-6.0); HEMATOCRIT 47.1 % (38.2-49.6); HEMOGLOBIN 15.1 g/dL (14.0-18.0); LYMPHOCYTES % 15.1 % (18.0-39.1); MEAN CORPUSCULAR HEMOGLOBIN 31.2 pg (28-32); MEAN CORPUSCULAR HGB CONC 32.1 g/dL (31-35); MEAN CORPUSCULAR VOLUME 97.3 fL (81-99); MONOCYTES # (AUTO) 0.9 (0.2-0.8); NEUTROPHILS # (AUTO) 4.6 (2.1-6.9); NEUTROPHILS % 67.6 % (38.7-80.0); PLATELET COUNT 115 x10e3/uL (140-360); RED BLOOD COUNT 4.84 x10e6/uL (4.3-5.7); RED CELL DISTRIBUTION WIDTH 14.7 % (11.7-14.4)
[2018-09-10 16:49] LABS: BILIRUBIN,URINE NEGATIVE (NEGATIVE); CLARITY,URINE CLEAR (CLEAR); COLOR,URINE YELLOW (YELLOW); KETONES,URINE NEGATIVE (NEGATIVE); LEUKOCYTE ESTERASE ,URINE TRACE (NEGATIVE); NITRITE,URINE NEGATIVE (NEGATIVE); PROTEIN,URINE DIPSTICK NEGATIVE (NEGATIVE); URINE UROBILINOGEN 0.2 mg/dL (0.2 - 1)
[2018-09-10 16:55] LABS: INR 1.21; PROTHROMBIN TIME 16.4 seconds (11.9-14.5)
[2018-09-10 16:56] LABS: PARTIAL THROMBOPLASTIN TIME 35.2 seconds (23.8-35.5)
[2018-09-10 17:00] LABS: WBC,URINE (MAN) 0-5 /HPF (0-5)
[2018-09-10 17:02] LABS: ALBUMIN 3.1 g/dL (3.5-5.0); ALBUMIN/GLOBULIN RATIO 0.7 (0.8-2.0); ANION GAP 13.2 mmol/L (8-16); CALCIUM 9.5 mg/dL (8.4-10.2); CREATININE, SERUM 1.48 mg/dL (0.72-1.25); POTASSIUM 4.2 mmol/L (3.5-5.1)
[2018-09-10 17:08] LABS: CREATINE KINASE MB 11.5 ng/mL (0-5.0)
[2018-09-10] MEDS ORDERED: SODIUM CHLORIDE FLUSH 10 ML SYR INJ PRN (18:00)
[2018-09-10] MEDS ORDERED: ASPIRIN 81 MG CHEW TAB PO ONE (18:00)
[2018-09-10] MEDS ORDERED: HYDROMORPHONE 1MG/1ML INJ IV PRN (18:30)
[2018-09-10] MEDS: HYDROMORPHONE 2MG/ML 2 MG/ML ML IV PRN (18:48)
[2018-09-11] MEDS: HYDROMORPHONE 2MG/ML 2 MG/ML ML IV PRN ×3 (00:38→19:24)
[2018-09-11] MEDS: ONDANSETRON HCL INJ 2 MG/ML VIAL IV PRN ×2 (00:38→06:32)
--- NOTE | 2018-09-11 06:16 | Diagnostic Imaging Report ---
CHEST SINGLE (PORTABLE), 09/11/2018 7:00 AM Technique: CHEST SINGLE (PORTABLE) Comparison: Previous day Clinical history: Shortness of breath, chest pain Findings: See Impression Impression: 1. Lines/Tubes: Stable left chest wall ICD. 2. Stable enlarged cardiac silhouette. 3. Lower lung predominant opacities which may reflect atelectasis and/or edema. 4. Small bilateral effusions versus pleural thickening. Signed by: Dr Radha Martinez MD on 09/11/2018 6:12 AM
[2018-09-11 06:24] LABS: BASOPHILS # (AUTO) 0.1 (0.0-0.1); BASOPHILS % 1.1 % (0.0-1.0); EOSINOPHILS # (AUTO) 0.4 (0.0-0.4); EOSINOPHILS % 4.9 % (0.0-6.0); HEMOGLOBIN 15.7 g/dL (14.0-18.0); LYMPHOCYTES # (AUTO) 1.4 (1.0-3.2); LYMPHOCYTES % 20.1 % (18.0-39.1); MEAN CORPUSCULAR HEMOGLOBIN 31.2 pg (28-32); MEAN CORPUSCULAR VOLUME 97.4 fL (81-99); MONOCYTES # (AUTO) 0.9 (0.2-0.8); MONOCYTES % 12.6 % (4.4-11.3); NEUTROPHILS # (AUTO) 4.3 (2.1-6.9); NEUTROPHILS % 60.7 % (38.7-80.0); PLATELET COUNT 141 x10e3/uL (140-360); RED BLOOD COUNT 5.03 x10e6/uL (4.3-5.7)
[2018-09-11 06:32] LABS: BLOOD UREA NITROGEN 36 mg/dL (7-26); BUN/CREATININE RATIO 27 (6-25); CALCIUM 9.9 mg/dL (8.4-10.2); CARBON DIOXIDE 29 mmol/L (22-29); CHLORIDE 99 mmol/L (98-107); CREATININE, SERUM 1.35 mg/dL (0.72-1.25); EST GLOMERULAR FILTRATION RATE > 60 ML/MIN (60-); GLUCOSE 116 mg/dL (74-118); SODIUM 137 mmol/L (136-145)
[2018-09-11] MEDS: MORPHINE SULFATE 2 MG/ML SYR IV PRN (06:32)
[2018-09-11] MEDS: ASPIRIN 81 MG ENTERIC COATED PO SCH (08:40)
[2018-09-11] MEDS: NICOTINE 21 MG/EA PATCH TOP SCH (08:57)
[2018-09-11 09:56] LABS: CREATINE KINASE MB 7.5 ng/mL (0-4.3)
[2018-09-11 13:50] VITALS: BP 127/94
[2018-09-11 14:24] VITALS: BP 131/80
[2018-09-11] MEDS ORDERED: FUROSEMIDE 40 MG TAB PO SCH (15:00)
[2018-09-11 15:54] VITALS: BP 127/81
[2018-09-11] MEDS: GABAPENTIN 100 MG CAP PO SCH ×2 (16:05→20:30)
[2018-09-11] MEDS: CARVEDILOL 12.5 MG TAB PO SCH (16:05)
[2018-09-11 18:21] LABS: CREATINE KINASE MB 9.8 ng/mL (0-5.0)
--- NOTE | 2018-09-11 18:47 | History and Physical ---
HISTORY OF PRESENT ILLNESS: The patient is a 63-year-old male with past medical history positive for coronary artery disease, history of CHF, history of stent placement, hepatitis C, diabetes mellitus with chronic renal insufficiency. The patient was admitted to the hospital because of chest pain and shortness of breath. Patient stopped Coumadin, aspirin, and Plavix because Dr. Fitch is going to do a cystoscopy because of swelling in the testicles. REVIEW OF SYSTEMS CARDIOVASCULAR: He had chest pain, which is resolved. RESPIRATORY: Shortness of breath, which is resolved. GASTROINTESTINAL: No nausea. No vomiting. No diarrhea. GENITOURINARY: No frequency. No dysuria. ALLERGIES: HE IS ALLERGIC TO LIPITOR. SOCIAL HISTORY: He smokes. He used to drink alcohol. He used to use recreational drugs, not anymore. PHYSICAL EXAMINATION VITAL SIGNS: Blood pressure 127/94, temperature 98 degrees, heart rate 68 per minute, respiratory rate 16 per minute, ox saturation 97%. HEART: Showed a regular rhythm. Normal S1, S2 sounds. LUNGS: Clear bilaterally. ABDOMEN: Soft. He had a mildly tender umbilical hernia. EXTREMITIES: Showed no evidence of cyanosis, edema, or trauma. IMAGING: EKG showed permanent pacemaker spikes. LABS: On the BMP, sodium 137, potassium 4.0, chloride 99, CO2 of 29, BUN 36, creatinine 1.35, glucose 116. CBC showed white blood count 7.15, hemoglobin 15.7, hematocrit 49.0, platelet count 141,000. PT 16.4, INR 1.21, PTT 35.2. AST 40, ALT 24, total bilirubin 1.7, alkaline phosphatase 166. Cardiac enzymes are negative. FINAL IMPRESSION 1. Coronary artery disease, status post stent, with unstable angina. 2. Chronic obstructive pulmonary disease. 3. Hepatitis C. 4. Umbilical hernia. 5. Diabetes mellitus type 2 with chronic renal insufficiency. 6. Hypertension with chronic renal insufficiency. PLAN OF TREATMENT: Continue aspirin 81 mg daily. Continue morphine 2 mg IV q.4 hours as needed. Continue nicotine transdermal patch 21 mg daily, Dilaudid 0.5 mg q.6 hours. Continue the rest of medications except for anticoagulation. We are going to consult Dr. Connell for cardiology because of the chest pain. So far, cardiac enzymes are borderline elevated. We are going to get a consult with Dr. Fitch for urology since he is going to do a cystoscopy if that is approved by Dr. Connell, enterprise resource planning consultant, Dr. Isbell is covering for him right now on the weekend. We are going to get a surgical consult with Dr. Odonnell for future umbilical hernia repair, he is a candidate. Job#: [id number] LPA
[2018-09-11] MEDS ORDERED: NITROGLYCERIN 0.4 MG SUBL SL PRN (19:00)
--- NOTE | 2018-09-11 19:19 | History and Physical ---
ADDENDUM He also has congestive heart failure. We are going to start him on Lasix. He had [id number] systolic congestive heart failure. We are going to obtain echocardiogram that he has had before to evaluate the ejection fraction. Patient also had leukocytes in the urine. We are going to order a urine culture also to see if there is any evidence of infection. We are going to consult Dr. Fitch from urology. Apparently, the patient was supposed to have cystoscopy done by him. He told to have the patient stop all the aspirin, Plavix, and Coumadin that he was taking before. We are going to consult Dr. Fitch for that. Job#: [id number]
[2018-09-11 19:35] VITALS: BP 129/79
[2018-09-11 20:00] VITALS: BP 129/79
[2018-09-11] MEDS: FUROSEMIDE INJ 10 MG/ML 4 ML VIAL IV SCH (20:30)
[2018-09-11] MEDS: TRAMADOL HCL 50 MG TAB PO PRN (22:44)
[2018-09-12] VITALS (8 sets, daily range): BP systolic 104–123; BP diastolic 46–81
--- NOTE | 2018-09-12 00:31 | Consultation ---
DATE OF CONSULTATION: September 11, 2018 CARDIOLOGY CONSULTATION REQUESTING PHYSICIAN: Dr. Romeo REASON FOR CONSULTATION: Non-ST elevation myocardial infarction. HISTORY OF PRESENT ILLNESS: This is a 63-year-old man with coronary artery disease status post prior stents, chronic systolic heart failure status post Bi-V ICD, peripheral arterial disease, hypertension, diabetes mellitus, and chronic kidney disease who presents with complaints of chest pain and shortness of breath. The patient had been doing well last week. His anticoagulation and antiplatelet therapy was held in preparation for cystoscopy. Three days prior to presentation, he began noticing increasing lower extremity swelling as well as orthopnea and paroxysmal nocturnal dyspnea. Two days ago, he began experiencing chest discomfort associated with shortness of breath. He therefore presented to the ER for further evaluation. In the ER, he was found to have elevated troponin of 1.2 with CK of 209 and CK-MB of 11.5. BNP was elevated at 1113. Patient was subsequently admitted for further treatment. REVIEW OF SYSTEMS: Negative except as per HPI. PAST MEDICAL HISTORY 1. Coronary artery disease status post prior stents. 2. Chronic systolic heart failure status post Bi-V ICD upgrade. 3. 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 4. Atrial fibrillation, on anticoagulation. 5. Hypertension. 6. Diabetes mellitus. 7. Chronic kidney disease. PAST SURGICAL HISTORY: Denies. SOCIAL HISTORY: Smokes half pack a day since age of 16. No alcohol or drugs. FAMILY HISTORY: Pertinent for brother with heart disease. ALLERGIES: PLEASE SEE EMR. MEDICATIONS: Please see medication list. PHYSICAL EXAMINATION VITAL SIGNS: Temperature 97.1 degrees, pulse 78, respiratory rate 18, blood pressure 127/81, oxygen saturation 99% on 2 liters nasal cannula. GENERAL: Awake, alert, in no acute distress. HEENT: Normocephalic and atraumatic. Pupils are equal. No scleral icterus. NECK: Supple. No thyromegaly or cervical lymphadenopathy. No carotid bruits. LUNGS: Decreased breath sounds at the bases. No wheezes or crackles. CARDIOVASCULAR: Normal rate. Regular rhythm. No murmur. Normal S1 and S2. ABDOMEN: Soft and nontender. EXTREMITIES: 1+ pitting edema bilaterally. NEURO: Nonfocal exam. LABS: Sodium 137, potassium 4, chloride 99, CO2 of 29, BUN 36, and creatinine 1.35. Troponin 0.46. WBC is 7.15, hemoglobin 15.7, hematocrit 49, platelets of 141. INR is 1.21. EKG, electronic ventricular pacemaker. IMPRESSION 1. Elevated troponin. 2. Vltfc-sq-[id number] systolic heart failure. 3. Severe systolic heart failure, status post Bi-V ICD upgrade. 4. 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 5. Coronary artery disease with prior stents. 6. Atrial fibrillation, on anticoagulation. 7. Diabetes mellitus. 8. Hypertension. 9. Chronic kidney disease. RECOMMENDATIONS: Patient's anticoagulation and antiplatelets have been held for cystoscopy. Troponin is not consistent with non-ST elevation myocardial infarction; however, we would like to resume antiplatelet therapy at this time. Warfarin can be held for procedure. Start intravenous diuretics given [id number] systolic heart failure. Continue home cardiac mediations otherwise. He is pending peripheral angiogram and attempted intervention of his left femoral artery to be scheduled after cystoscopy has been performed. Monitor patient on telemetry. Thank you for this consult. We will continue to follow. Job#: [id number] GLADIS
[2018-09-12] MEDS: MORPHINE SULFATE 2 MG/ML SYR IV PRN ×4 (04:42→22:42)
[2018-09-12] MEDS ORDERED: POTASSIUM CHLO10 ME1 PO (04:44)
[2018-09-12] MEDS: CARVEDILOL 12.5 MG TAB PO SCH ×2 (08:15→17:17)
[2018-09-12] MEDS: TRAMADOL HCL 50 MG TAB PO PRN ×2 (08:16→15:14)
[2018-09-12] MEDS ORDERED: FUROSEMIDE 40 MG TAB PO SCH (09:00)
[2018-09-12] MEDS ORDERED: LORATADINE 10 MG TAB PO SCH (09:00)
[2018-09-12] MEDS ORDERED: CLOPIDOGREL BISULFATE 75 MG TAB PO SCH (09:00)
[2018-09-12] MEDS ORDERED: ASPIRIN 81 MG CHEW TAB PO SCH (09:00)
[2018-09-12] MEDS ORDERED: NICOTINE TD SCH (09:00)
[2018-09-12] MEDS: ASPIRIN 81 MG ENTERIC COATED PO SCH (09:00)
[2018-09-12] MEDS ORDERED: LORATADINE 10 MG TAB PO PRN (09:00)
[2018-09-12] MEDS: NICOTINE 21 MG/EA PATCH TOP SCH (09:39)
[2018-09-12] MEDS: FUROSEMIDE INJ 10 MG/ML 4 ML VIAL IV SCH ×3 (09:39→20:20)
[2018-09-12] MEDS: LISINOPRIL 10 MG TAB PO SCH (09:39)
[2018-09-12] MEDS: GABAPENTIN 100 MG CAP PO SCH ×3 (09:39→20:20)
[2018-09-12] MEDS: ONDANSETRON HCL INJ 2 MG/ML VIAL IV PRN ×2 (11:11→14:36)
[2018-09-12] MEDS ORDERED: DEXTROSE 50% SYRINGE 50 ML IV PRN (12:45)
--- NOTE | 2018-09-12 14:53 | Progress Note ---
DATE: INTERNAL MEDICINE PROGRESS NOTE SUBJECTIVE: Patient came here today with shortness of breath. Chest x-ray showed no evidence of any pneumonia or CHF. Patient is admitted to the hospital. He was also going to have a cystoscopy done by Dr. Fitch. Troponins came back elevated. Dr. Isbell saw her from the cardiology point of view and recommended to restart the aspirin. We are waiting on Dr. Fitch to decide about the time of the cystoscopy. PHYSICAL EXAMINATION VITAL SIGNS: Blood pressure 105/72, temperature 96.6, heart rate 80 per minute, respiratory rate 16 per minute, oxygen saturation 97%. HEART: Regular rhythm. Normal S1, S2 sound. LUNGS: Clear bilaterally. ABDOMEN: Soft. EXTREMITIES: 2+ bilateral peal edema. LABS: On the BMP; sodium 137, potassium 4.0, chloride 99, CO2 of 29, BUN 36, creatinine 1.35, glucose 116. On the CBC; white blood count 7.15, hemoglobin 15.7, hematocrit 49.0, platelet count of 141,000. PT 16.4, PTT 35.2, INR 1.21. AST 40, ALT 24, total bilirubin 1.7, alkaline phosphatase 166. FINAL IMPRESSION 1. Atypical chest pain with unstable angina. 2. Chronic obstructive pulmonary disease. 3. Coronary artery disease, status post stent placement. 4. Hepatitis C. 5. Umbilical hernia, which is a little painful. 6. Uncontrolled diabetes mellitus type 2 with chronic renal insufficiency. 7. Hypertension with chronic renal insufficiency. 8. Hypertension with hypertensive heart disease. PLAN OF TREATMENT: Continue aspirin 81 mg daily, morphine 2 mg q.4 hours as needed, Zofran 4 mg IV q.4 hours as needed. Continue with Plavix 75 mg daily, which we are going to place on hold until Dr. Fitch decides about the cystoscopy. Continue furosemide 40 mg IV 3 times a day, nicotine patch 21 mg daily, gabapentin 100 mg 3 times a day, nitroglycerin 0.4 mg q.5 minutes p.r.n. for chest pain, aspirin 81 mg daily, lisinopril 40 mg daily, Claritin 10 mg daily, carvedilol 12.5 mg twice a day, tramadol 50 mg twice a day, and Dilaudid 0.5 mg IV q.6 hours as needed. We are going to consult Dr. Fitch from urology for cystoscopy, Dr. Félix Odonnell because he has got a painful umbilical hernia, but no evidence of any small bowel obstruction so far clinically. Job#: [id number] GLADIS
[2018-09-12] MEDS: INSULIN REGULAR, HUMAN 100 UNIT/1 ML 3ML VIAL SQ SCH ×2 (17:16→20:21)
[2018-09-12] MEDS: POTASSIUM CHLORIDE 10MEQ EA PO SCH (17:17)
--- NOTE | 2018-09-12 17:27 | Progress Note ---
DATE: September 12, 2018 CARDIOLOGY PROGRESS NOTE SUBJECTIVE: The patient denies chest pain or shortness of breath. OBJECTIVE VITAL SIGNS: Temperature 96.6 degrees, pulse 80, respiratory rate 16, blood pressure 105/72, oxygen saturation 97% on room air. GENERAL: Awake, alert, in no acute distress. LUNGS: Decreased breath sound at the bases. No wheezes or crackles. CARDIOVASCULAR: Normal rate, regular rhythm. No murmur. Normal S1, S2. ABDOMEN: Soft, nontender. EXTREMITIES: 1+ pitting edema bilaterally. CARDIAC MEDICATIONS 1. Lasix 40 mg IV t.i.d. 2. Lisinopril 40 mg p.o. daily. 3. Carvedilol 12.5 mg p.o. b.i.d. 4. Plavix 75 mg p.o. daily. 5. Aspirin 81 mg p.o. daily. LABS: None today. TELEMETRY: V paced. IMPRESSION 1. Elevated troponin, likely [id number] systolic heart failure. 2. Severe systolic heart failure, status post by the implantable cardioverter defibrillator upgrade. 3. Severe peripheral arterial disease with severe stenosis of the right superficial femoral artery as well as CT of the left superficial femoral artery. 4. Coronary artery disease with prior stents. 5. Atrial fibrillation with anticoagulation. 6. Diabetes mellitus. 7. Hypertension. 8. Chronic kidney disease. RECOMMENDATIONS: Patient's anticoagulation and antiplatelets were held for cystoscopy. Troponin is not consistent with myocardial infarction; however, we would like to resume antiplatelet therapy at this time. Continue holding warfarin. Continue diuresis given patient's [id number] systolic heart failure. Patient is pending peripheral angiogram and attempted intervention of his left femoral artery. This will be scheduled after cystoscopy has been performed. Monitor patient on telemetry. Thank you for this consult. We will continue to follow. Job#: [id number] WILFRIDO
[2018-09-12] MEDS: LEVOFLOXACIN 250 MG TAB PO SCH (17:34)
[2018-09-12] MEDS: HYDROMORPHONE 2MG/ML 2 MG/ML ML IV PRN (19:20)
--- NOTE | 2018-09-12 21:26 | Consultation ---
DATE OF CONSULTATION: PULMONARY CONSULTATION Patient of Dr. Romeo and Dr. Isbell. Charming, but unfortunate 63-year-old gentleman, admitted with swelling, shortness of breath, and chest pain which he attributed to gas. He has a history of coronary artery disease with an NH in 2012. He has had multiple coronary stents and also stents in the upper and lower extremities. History of umbilical hernia, history of urinary tract infections, and cystoscopy was planned this week. He is diabetic and hypertensive. He has adverse reaction to statins, particularly Lipitor causing muscle pain and inability to walk. He has had an AICD. He is born in [facility]. He was also recently diagnosed with hepatitis C. 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 Drank in the past, quit in 1994, trying to quit smoking, but still smokes 5 cigarettes a day. FAMILY HISTORY: Positive for diabetes and hypertension. He has a biventricular pacemaker with AICD, history of chronic kidney disease, peripheral vascular disease. MEDICATIONS AT HOME: Include aspirin, Coreg, Plavix, Lasix, Neurontin, lisinopril, loratadine, nicotine patch, potassium, tramadol, and Minocin. PHYSICAL EXAMINATION GENERAL: He is a well-developed black male, in no acute distress. Echocardiogram is underway. VITAL SIGNS: Temperature 96.4, pulse 79, respirations 12, blood pressure 121/75. HEENT: Head: Normocephalic and atraumatic. Eyes: Extraocular movements intact. LUNGS: Diminished breath sounds. HEART: Regular rhythm. ABDOMEN: Nontender. Umbilical hernia. EXTREMITIES: Changes related to , but no edema at this time. IMPRESSION: Pulmonary edema with mild chronic obstructive pulmonary disease. We will request spirometry, cigarette smoking cessation. Patient denies dyspnea at this time. We will defer inhale bronchodilators. Laboratory data suggest the patient has non-ST elevation myocardial infarction. We will defer to Dr. Isbell. Thank you for this kind referral. Job#: [id number] TITUS
[2018-09-12] MEDS ORDERED: PANTOPRAZOLE SOD 40 MG TABEC PO ONE (22:15)
[2018-09-12] MEDS ORDERED: FAMOTIDINE 20 MG TAB PO ONE (22:15)
[2018-09-12] MEDS: TEMAZEPAM 15 MG CAP PO PRN (22:47)
[2018-09-13] VITALS (8 sets, daily range): BP systolic 110–162; BP diastolic 62–95
[2018-09-13] MEDS: HYDROMORPHONE 2MG/ML 2 MG/ML ML IV PRN ×3 (03:14→18:41)
[2018-09-13] MEDS: INSULIN REGULAR, HUMAN 100 UNIT/1 ML 3ML VIAL SQ SCH ×4 (07:30→20:57)
[2018-09-13] MEDS ORDERED: PANTOPRAZOLE SOD 40 MG TABEC PO SCH (07:30)
--- NOTE | 2018-09-13 07:43 | Diagnostic Imaging Report ---
PROCEDURE: Frontal and lateral views of the chest. COMPARISON: Chest radiograph 09/11/18. INDICATIONS: CONGESTIVE HEART FAILURE FINDINGS: Lines/tubes: Left sided AICD with dual leads in unchanged position. Lungs: Patchy bibasilar opacities, right greater than left. Linear subsegmental atelectasis at the right lower lung zone. Mild interstitial opacities. Pleura: Trace bilateral pleural effusions. No evidence of pneumothorax. Heart and mediastinum: The cardiomediastinal silhouette is mildly enlarged. Atherosclerotic calcifications of the aortic arch. Bones: No acute bony abnormality. Upper abdomen: Atherosclerotic calcifications of the abdominal aorta. IMPRESSION: Mild interstitial edema with trace bilateral pleural effusions. Patchy opacities at the lung bases, likely atelectasis. Dictated by: ELBA CAVAZOS M.D. on 09/13/2018 at 7:52 Electronically approved by: ELBA CAVAZOS M.D. on 09/13/2018 at 7:52
[2018-09-13] MEDS: GABAPENTIN 100 MG CAP PO SCH ×3 (08:20→20:57)
[2018-09-13] MEDS: CARVEDILOL 12.5 MG TAB PO SCH ×2 (08:20→17:17)
[2018-09-13] MEDS: FAMOTIDINE 20 MG TAB PO SCH ×2 (08:20→15:23)
[2018-09-13] MEDS: LISINOPRIL 10 MG TAB PO SCH (08:20)
[2018-09-13] MEDS: POTASSIUM CHLORIDE 10MEQ EA PO SCH ×2 (08:20→17:17)
[2018-09-13] MEDS: NICOTINE 21 MG/EA PATCH TOP SCH (08:21)
[2018-09-13] MEDS: MORPHINE SULFATE 2 MG/ML SYR IV PRN ×2 (08:43→20:59)
[2018-09-13] MEDS: FUROSEMIDE INJ 10 MG/ML 4 ML VIAL IV SCH ×3 (08:43→20:57)
[2018-09-13] MEDS: TRAMADOL HCL 50 MG TAB PO PRN ×2 (10:23→17:17)
--- NOTE | 2018-09-13 11:49 | Diagnostic Imaging Report ---
EXAM: Scrotal Ultrasound INDICATION: Testicular pain. Right greater than left orchitis COMPARISON: CT scan 08/23/2018 TECHNIQUE: Transverse and longitudinal images were obtained of the scrotum with grayscale imaging, color Doppler and spectral waveform analysis. FINDINGS: Right testis: Size: 3.9 x 2.4 x 2.9 cm, normal in size. Echogenicity: Heterogeneous Mass/Cysts: None Left testis: Size: 3.7 x 2.0 x 3.2 cm, normal in size. Echogenicity: Heterogeneous Mass/Cysts: None Epididymis: Appearance: Normal in size without increased vascularity. Mass/Cysts: None Extratesticular: Masses: None Fluid collections: Right and left hydroceles and right and left varicoceles. Doppler: Normal arterial flow to both testes and symmetrical flow on color Doppler evaluation is seen. No evidence of testicular torsion. IMPRESSION: 1. No evidence of testicular torsion. 2. Heterogeneous testicles. No focal mass is seen. Right and left hydroceles and right and left varicoceles. Signed by: Dr. Jasper Vásquez M.D. on 09/13/2018 11:46 AM
--- NOTE | 2018-09-13 12:00 | Diagnostic Imaging Report ---
PROCEDURE:TESTICULAR ULTRASOUND COMPARISON:None. INDICATIONS:R>L ORCHITIS TECHNIQUE: Ariza-scale and color Doppler images of the testicles and scrotal contents were obtained. Duplex imaging with spectral waveform analysis was performed of the testicular arteries and veins. FINDINGS: RIGHT SCROTUM: Testicle: Measures 3.9 x 2.4 x 2.9 cm. Unremarkable in appearance with normal Doppler flow. Epididymal head: Unremarkable. Normal Doppler flow. Hydrocele: Present, predominately simple appearing Varicocele: Present LEFT SCROTUM: Testicle: Measures 3.7 x 2 x 3.2 cm. Unremarkable in appearance with normal Doppler flow. Epididymal head: Unremarkable. Normal Doppler flow. Hydrocele: Present, predominately simple appearing Varicocele: Present CONCLUSION: No sonographic evidence of testicular torsion or orchitis. Bilateral hydroceles and varicoceles. Dictated by: ELBA CAVAZOS M.D. on 09/13/2018 at 12:09 Electronically approved by: ELBA CAVAZOS M.D. on 09/13/2018 at 12:09
[2018-09-13] MEDS: LEVOFLOXACIN 250 MG TAB PO SCH (17:17)
[2018-09-13] MEDS: TEMAZEPAM 15 MG CAP PO PRN (22:02)
--- NOTE | 2018-09-13 23:09 | Progress Note ---
DATE: September 13, 2018 CARDIOLOGY PROGRESS NOTE SUBJECTIVE: No major events overnight. No chest pain or shortness of breath. Pending cystoscopy still, likely tomorrow. OBJECTIVE VITAL SIGNS: Please see chart. GENERAL: Well-developed, obese man, no acute distress. CARDIOVASCULAR: Regular rate and rhythm. No murmurs, rubs, or gallops. Palpable carotid pulses. Palpable radial pulses. LUNGS: Clear to auscultation bilaterally. No respiratory distress. ABDOMEN: Obese, soft, nontender. No masses. CARDIOVASCULAR MEDICATIONS: Reviewed. LABORATORY DATA: Reviewed. IMAGING DATA: Reviewed. TELEMETRY DATA: Reviewed. ASSESSMENT 1. Coronary artery disease, status post percutaneous coronary intervention in the past. 2. Extensive peripheral arterial disease, status post percutaneous transluminal angioplasty 2 months ago. 3. History of chronic systolic heart failure. PLAN: Continue current cardiovascular medications. Patient's troponins are elevated, however, not typical of acute coronary syndrome, as no typical rise and fall. Patient is chest pain free. Had a recent cardiac catheterization that showed no lesions amenable to PCI and patent prior stents. No further cardiovascular risk stratification needed. Patient is okay to proceed for a cystoscopy. He will be a moderate risk for cardiovascular events in the perioperative period for this low risk surgery. Once cystoscopy is completed, we will perform peripheral angiography and intervention for his severe CAD, claudication and critical limb ischemia. Thank you for this consult. Will continue to follow. Job#: [id number]
[2018-09-14] VITALS (7 sets, daily range): BP systolic 120–149; BP diastolic 76–95
[2018-09-14] MEDS: HYDROMORPHONE 2MG/ML 2 MG/ML ML IV PRN ×3 (03:24→22:08)
[2018-09-14] MEDS: INSULIN REGULAR, HUMAN 100 UNIT/1 ML 3ML VIAL SQ SCH ×4 (07:30→20:59)
[2018-09-14] MEDS: FAMOTIDINE 20 MG TAB PO SCH ×2 (07:30→16:27)
[2018-09-14] MEDS: CARVEDILOL 12.5 MG TAB PO SCH ×2 (08:00→16:27)
[2018-09-14] MEDS: NICOTINE 21 MG/EA PATCH TOP SCH (08:32)
[2018-09-14] MEDS: FUROSEMIDE INJ 10 MG/ML 4 ML VIAL IV SCH ×3 (08:32→20:58)
[2018-09-14] MEDS ORDERED: IOPAMIDOL 610MG/1ML 300 MG/ML VIAL IV ONE (09:09)
[2018-09-14] MEDS ORDERED: BELLADONNA/OPIUM 60 MG SUPP PR ONE (09:09)
[2018-09-14] MEDS ORDERED: LIDOCAINE JELLY 2% 10ML URO-JET ONE (09:44)
[2018-09-14] MEDS ORDERED: SEVOFLURANE INHAL SOLN 250 ML PEN BTL ONE (09:56)
[2018-09-14] MEDS ORDERED: PROPOFOL IV EMULSION 10 MG/ML 20 ML VIAL ONE (09:56)
[2018-09-14] MEDS ORDERED: ALBUTEROL SULF 0.083% NEB SOLN 3 ML NEB ONE (10:19)
[2018-09-14] MEDS ORDERED: MORPHINE SULFATE 2 MG/ML SYR ONE (11:08)
[2018-09-14] MEDS: MORPHINE SULFATE 2 MG/ML SYR IV PRN ×2 (11:09→16:26)
--- NOTE | 2018-09-14 11:29 | Operative Report ---
DATE OF PROCEDURE: September 14, 2018 SERVICE: Urology. ATTENDING PHYSICIAN: Tim Romeo MD PREOPERATIVE DIAGNOSES 1. Hematuria. 2. Coronary artery disease. 3. Possible urethral stricture. OPERATION PERFORMED 1. Cystoscopy and bilateral retrograde pyelograms under fluoroscopic control. 2. Interpretation of x-ray, radiologist not present. 3. Supervision of fluoroscopy, radiologist not present. 4. Urethral dilation. AD OPERATIONS SPECIALIST: None. ANESTHESIA: General. Local with Xylocaine 2% jelly. PREOPERATIVE INDICATION: This is a 63-year-old patient with history of hematuria. He was brought for assessment of lower and upper tracts. Procedure was discussed with the patient. Potential benefits and complication were discussed, explained, and accepted. Patient is aware that he may need a Latif catheter following the procedure. DESCRIPTION OF PROCEDURE AND FINDINGS: After proper level of anesthesia was achieved, the patient was placed in lithotomy position, prepped and draped in sterile fashion. Urethra was inspected. The stricture was noticed in the bulbous urethra. It was dilated to 28 English. Bladder outlet is minimally obstructed by a large prostate. Bladder is trabeculated. No tumor or foreign bodies identified in the bladder. Cone-tip catheter was used, and bilateral retrograde pyelograms were done under fluoroscopic control. The upper tract and ureters appear to be unremarkable. The bladder was then drained. Scope was removed. A 22-English, 10-mL Latif catheter was inserted. A B and O suppository was inserted as well. The patient tolerated the procedure well and was transferred in satisfactory condition to recovery room. He will be followed as outpatient. Job#: [id number]
[2018-09-14] MEDS: TRAMADOL HCL 50 MG TAB PO PRN ×2 (11:50→18:31)
[2018-09-14] MEDS: GABAPENTIN 100 MG CAP PO SCH ×3 (11:50→20:58)
[2018-09-14] MEDS: POTASSIUM CHLORIDE 10MEQ EA PO SCH ×2 (11:50→16:26)
[2018-09-14] MEDS: LISINOPRIL 10 MG TAB PO SCH (11:50)
[2018-09-14] MEDS ORDERED: NALOXONE HCL INJ 0.4 MG/ML AMP IV PRN (14:15)
--- NOTE | 2018-09-14 15:58 | Progress Note ---
DATE: September 14, 2018 CARDIOVASCULAR PROGRESS NOTE SUBJECTIVE: Had cystoscopy with urethral stricture dilation done earlier today. Now, having some hematuria through the Latif catheter. Complaining about pain in the urethra. OBJECTIVE VITAL SIGNS: Temperature 96.5, pulse 80, respiratory rate 18, blood pressure 124/76, satting 95% on 2 L nasal cannula. CARDIOVASCULAR: Regular rate and rhythm. No murmurs, rubs or gallops. Normal S1 and S2. LUNGS: Clear to auscultation bilaterally. Decreased breath sounds at the bases. ABDOMEN: Soft, nontender, nondistended. No masses. NEURO AND PSYCH: Alert and oriented to person, place, and time. Normal affect. CARDIOVASCULAR MEDICATIONS: Reviewed. LABORATORY DATA: Reviewed. Telemetry data shows V-paced rhythm. ASSESSMENT AND PLAN 1. Elevated troponin secondary to chronic systolic heart failure. 2. Ischemic cardiomyopathy: Status post implantable cardioverter defibrillator placement. 3. Severe peripheral arterial disease with severe stenosis of the right superficial femoral artery, as well as chronic total occlusion of the left superficial femoral artery. 4. Coronary artery disease with prior stents: Status post recent cath showing no lesions amenable to revascularization. 5. Atrial fibrillation, on anticoagulation. 6. Diabetes. 7. Hypertension. 8. Chronic kidney disease. RECOMMENDATIONS: The patient's anticoagulation and antiplatelets are being held for cystoscopy, now having hematuria after urethral dilation. Will continue to hold his antiplatelets and anticoagulation. Continue aspirin. Otherwise, continue his other cardiac medications. Will defer intervention to his SFA until his hematuria resolves and urology feels that it is safe for him to be anticoagulated again. Thank you for this consult. Will continue to follow. Job#: [id number] WI
[2018-09-14] MEDS: LEVOFLOXACIN 250 MG TAB PO SCH (16:26)
[2018-09-15] VITALS: BP 118/77
[2018-09-15] MEDS: TEMAZEPAM 15 MG CAP PO PRN ×2 (01:05→22:59)
[2018-09-15 04:00] VITALS: BP 110/71
[2018-09-15] MEDS: MORPHINE SULFATE 2 MG/ML SYR IV PRN ×3 (04:11→14:20)
[2018-09-15] MEDS: INSULIN REGULAR, HUMAN 100 UNIT/1 ML 3ML VIAL SQ SCH ×4 (07:30→20:48)
[2018-09-15 08:00] VITALS: BP 116/76
[2018-09-15] MEDS: FUROSEMIDE INJ 10 MG/ML 4 ML VIAL IV SCH ×3 (09:00→20:48)
[2018-09-15] MEDS ORDERED: BELLADONNA/OPIUM 60 MG SUPP PR PRN (09:30)
[2018-09-15] MEDS: POTASSIUM CHLORIDE 10MEQ EA PO SCH ×2 (09:36→17:26)
[2018-09-15] MEDS: GABAPENTIN 100 MG CAP PO SCH ×3 (09:36→20:58)
[2018-09-15] MEDS: LISINOPRIL 10 MG TAB PO SCH (09:36)
[2018-09-15] MEDS: NICOTINE 21 MG/EA PATCH TOP SCH (09:36)
[2018-09-15] MEDS: FAMOTIDINE 20 MG TAB PO SCH ×2 (09:37→17:24)
[2018-09-15] MEDS: CARVEDILOL 12.5 MG TAB PO SCH ×2 (09:38→17:25)
[2018-09-15] MEDS: BELLADONNA/OPIUM 60 MG SUPP PR PRN ×3 (09:46→21:35)
[2018-09-15] MEDS: TRAMADOL HCL 50 MG TAB PO PRN ×2 (10:38→17:24)
[2018-09-15] MEDS: HYDROMORPHONE 2MG/ML 2 MG/ML ML IV PRN ×2 (11:44→18:57)
[2018-09-15 13:17] VITALS: BP 101/62
[2018-09-15 16:00] VITALS: BP 109/64
--- NOTE | 2018-09-15 16:26 | Progress Note ---
DATE: September 15, 2018 CARDIOLOGY PROGRESS NOTE SUBJECTIVE: Continues to have pain in the urethra. However, improved from yesterday. Still having some hematuria, but improved from yesterday as well. OBJECTIVE VITAL SIGNS: Temperature 97, pulse 80, respiratory rate 20, blood pressure 101/62, satting 98% on nasal cannula. GENERAL: man in no acute distress. CARDIOVASCULAR: Regular rate and rhythm. No murmurs, rubs or gallops. Normal S1 and S2. LUNGS: Clear to auscultation bilaterally. Decreased breath sounds at the bases. ABDOMEN: Obese, soft, nontender, and nondistended. No masses. NEURO AND PSYCH: Alert and oriented to person, place, and time. Normal affect. CARDIOVASCULAR MEDICATIONS: Reviewed. LABORATORY DATA: Reviewed. Telemetry data shows V-paced rhythm. ASSESSMENT AND PLAN 1. Elevated troponin secondary to chronic systolic heart failure. 2. Ischemic cardiomyopathy: Status post automatic implanted cardioverter defibrillator placement. 3. Severe peripheral arterial disease with severe stenosis in the right superficial femoral artery, as well as GLOVE TURNER of the left superficial femoral artery. 4. Coronary artery disease: Status post recent cath showing no lesions amenable to revascularization. 5. Atrial fibrillation, on anticoagulation. 6. Diabetes. 7. Hypertension. 8. Chronic kidney disease. RECOMMENDATIONS: Anticoagulation and antiplatelets are being held post cystoscopy due to ongoing hematuria. Will await for urology for clearance. Continue aspirin if possible. Continue his other cardiac medications. Will wait on intervening to his SFA until he is cleared for anticoagulation by urology. Thank you for this consult. Will continue to follow. Job#: [id number] DAO
[2018-09-15] MEDS: LEVOFLOXACIN 250 MG TAB PO SCH (17:26)
[2018-09-15 20:00] VITALS: BP 112/71
[2018-09-16] VITALS: BP 122/76
[2018-09-16] MEDS: HYDROMORPHONE 2MG/ML 2 MG/ML ML IV PRN ×2 (02:00→08:20)
[2018-09-16 04:00] VITALS: BP 128/82
[2018-09-16] MEDS: INSULIN REGULAR, HUMAN 100 UNIT/1 ML 3ML VIAL SQ SCH ×2 (07:30→11:30)
[2018-09-16 08:00] VITALS: BP 104/76
[2018-09-16] MEDS: FAMOTIDINE 20 MG TAB PO SCH (08:00)
[2018-09-16] MEDS: CARVEDILOL 12.5 MG TAB PO SCH (08:25)
[2018-09-16] MEDS: GABAPENTIN 100 MG CAP PO SCH (08:30)
[2018-09-16] MEDS: FUROSEMIDE INJ 10 MG/ML 4 ML VIAL IV SCH (08:30)
[2018-09-16] MEDS: NICOTINE 21 MG/EA PATCH TOP SCH (08:30)
[2018-09-16] MEDS: POTASSIUM CHLORIDE 10MEQ EA PO SCH (08:30)
[2018-09-16] MEDS: LISINOPRIL 10 MG TAB PO SCH (08:30)
[2018-09-16 12:00] VITALS: BP 105/75
[2018-09-16] MEDS: TRAMADOL HCL 50 MG TAB PO PRN (12:25)
--- NOTE | 2018-09-16 13:14 | Progress Note ---
DATE: INTERNAL MEDICINE PROGRESS NOTE NO DICTATION (05:15) Job#: [id number] AKANKSHA
[2018-09-16] MEDS ORDERED: DITROPAN XL5 MG PO (15:32)
[2018-09-16] MEDS ORDERED: TYLENOL WITH C1 EACH PO (15:32)
[2018-09-16] MEDS ORDERED: CEFTIN PO (15:33)
--- NOTE | 2018-09-16 18:30 | Discharge Summary ---
Patient of Dr. Ascencion Quiñones. He was admitted through the emergency room. Also patient of Dr. Dino Fitch. He was admitted by Dr. Romeo and then apparently transferred to my service just prior to discharge. He is a charming but unfortunate 63-year-old gentleman admitted with swelling in the lower extremities and shortness of breath and chest pain which he attributed to gas. He has a history of coronary artery disease. He had an ME in 2015. He has had multiple cardiac stents and stents in the upper and lower extremities. He has history of umbilical hernia, history of urinary tract infections, diabetes and hypertension. He has had adverse reaction to statins, particularly Lipitor causing muscle pain and inability to walk. He has had an AICD placed. SOCIAL HISTORY: He was born in , [place]. He quit drinking in 1994. He still smokes 5 cigarettes a day. Cigarette smoking cessation was recommended. FAMILY HISTORY: Positive for diabetes and hypertension. He was felt to be in pulmonary edema with mild obstructive pulmonary disease, severe congestive heart failure. 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 He was also seen by Dr. Fitch for evaluation of hematuria and urethral stricture. Cystoscopy and bilateral retrogrades were performed, urethral dilatation. The patient had mild bleeding and pain after the procedure. He gradually improved. Urine cultures were negative. He was discharged to be followed by Dr. Ascencion Quiñones, Dr. Fitch and Dr. Isbell as an outpatient. DISCHARGE DIAGNOSES 1. Severe ischemic cardiomyopathy. 2. AICD defibrillator. 3. Peripheral vascular disease with severe stenosis of the right superficial femoral artery and left superficial femoral artery. 4. Coronary artery disease. 5. Atrial fibrillation. 6. Diabetes. 7. Hypertension. 8. Chronic kidney disease. 9. Hematuria. Anticoagulants held for this reason. He was discharged to continue aspirin 81 mg. Coreg 12.5 b.i.d. Plavix 75. Pepcid 20 b.i.d. Lasix 40 t.i.d. Neurontin 100 mg t.i.d. Tylenol No. 3. Levaquin 250. Lisinopril 40. Loratadine 10. Nicotine patch. Nitroglycerin p.r.n. Potassium 10 p.o. b.i.d. The Levaquin was discontinued. He was placed on Ceftin 250 b.i.d. Lasix was changed to oral 40 t.i.d. Aspirin, Plavix Nicotine patch were held by urology pending resolution of his hematuria. Continue Ditropan, potassium and tramadol. He is discharged much improved. GAEL BUSTILLOS MD Job#: [id number] GH
--- NOTE | 2018-09-16 21:12 | Progress Note ---
DATE: September 16, 2018 CARDIOLOGY PROGRESS NOTE SUBJECTIVE: Pain in his urethra is improved, but still significant, continues to ask for p.r.n. pain medicines. Latif in place. Urine has cleared, but still has mild pink tinging. OBJECTIVE: VITAL SIGNS: Per documented in medical record. GENERAL: Obese man, in no acute distress. CARDIOVASCULAR: Regular rate and rhythm. No murmurs, rubs, or gallops. Palpable carotid pulses. Palpable radial pulses. Distal pulses in the feet are not palpable. Severe peripheral arterial disease changes of bilateral lower shins. No ulcers. LUNGS: Clear to auscultation bilaterally. ABDOMEN: Obese, soft, nontender. No masses. NEURO AND PSYCH: Alert and oriented to person, place, and time. Normal affect. CARDIOVASCULAR MEDICATIONS: Reviewed. LABORATORY DATA: Reviewed. TELEMETRY DATA: Reviewed, shows normal sinus rhythm. ASSESSMENT: 1. Coronary artery disease, status post percutaneous coronary intervention in the past, and recent coronary angiogram showing residual disease not amenable to revascularization. 2. Ischemic cardiomyopathy. 3. Chronic systolic heart failure. 4. Atrial fibrillation and atrial flutter, on chronic anticoagulation. 5. Recent cystoscopy, status post urethral stricture dilation. 6. Hematuria, status post cystoscopy. PLAN: Patient still has Latif in place. Discuss with urology regarding restarting his anticoagulation. Although his hematuria has improved significantly, it is still ongoing, recommended to hold off anticoagulation until Latif is removed and bleeding completely stops. Urology plans to follow up with him 1 week post discharge for removal of his Latif catheter as well as assessment of healing of his urethra. We will follow up as an outpatient once urology has cleared him for his anticoagulation. Continue aspirin 81 mg daily in the meantime. Intervention for his peripheral arterial disease will wait until after improvement of his urologic issues. Patient also has hepatitis C and asking when he can start his 3 months treatment with [facility]. Told patient to hold off for now until all his procedures are completed as to avoid any interruptions. Thank you for this consult. Will continue to follow. Job#: [id number]
== END 2018-09-16 16:40 | disposition home or self-care (01) | DRG 291 ==
LOC: ER 15:45 → ERHOLD 18:19 → IMCU 09-11 13:34 → OBSVTOIN 09-12 10:40 → MED/SURG3 09-12 14:50
PROVIDERS: ADMIT Internal Medicine Pulmonary Disease; ATTEND Internal Medicine Pulmonary Disease
PROC: BT141ZZ Fluoroscopy of Kidneys, Ureters and Bladder using Low Osmolar Contrast (ICD-10-PCS; 2018-09-14)
PROC: 0T7D8ZZ Dilation of Urethra, Via Natural or Artificial Opening Endoscopic (ICD-10-PCS; principal; 2018-09-14 09:48)
DX: I13.0 Hypertensive heart and chronic kidney disease with heart failure and stage 1 through stage 4 chronic kidney disease, or unspecified chronic kidney disease (principal); N18.6 End stage renal disease; I50.33 Acute on chronic diastolic (congestive) heart failure; J44.1 Chronic obstructive pulmonary disease with (acute) exacerbation; N39.0 Urinary tract infection, site not specified; I50.1 Left ventricular failure, unspecified; I25.110 Atherosclerotic heart disease of native coronary artery with unstable angina pectoris; I13.2 Hypertensive heart and chronic kidney disease with heart failure and with stage 5 chronic kidney disease, or end stage renal disease; I25.5 Ischemic cardiomyopathy; Z95.810 Presence of automatic (implantable) cardiac defibrillator; I12.9 Hypertensive chronic kidney disease with stage 1 through stage 4 chronic kidney disease, or unspecified chronic kidney disease; E11.22 Type 2 diabetes mellitus with diabetic chronic kidney disease; R31.9 Hematuria, unspecified; I25.2 Old myocardial infarction; T45.515A Adverse effect of anticoagulants, initial encounter; Z95.5 Presence of coronary angioplasty implant and graft; F17.210 Nicotine dependence, cigarettes, uncomplicated; Z95.820 Peripheral vascular angioplasty status with implants and grafts; Z79.4 Long term (current) use of insulin; I48.2 Chronic atrial fibrillation; Z79.01 Long term (current) use of anticoagulants; E11.51 Type 2 diabetes mellitus with diabetic peripheral angiopathy without gangrene; N45.1 Epididymitis; Z99.2 Dependence on renal dialysis; B18.2 Chronic viral hepatitis C; K42.9 Umbilical hernia without obstruction or gangrene; E11.65 Type 2 diabetes mellitus with hyperglycemia; N35.919 Unspecified urethral stricture, male, unspecified site
CPT/HCPCS: 36415; 71045; 71046; 74420; 76870; 80048; 80053; 81001; 82550; 82553; 82948; 83880; 84484; 85025; 85610; 85730; 87086; 93005; 93306; 93976; 99284; G0378; J1940; J2270; J2405

== ENCOUNTER 2018-09-18 04:13 | Emergency (ER) | payer MEDICARE ==
[~2018-09-18] VITALS: Ht 175.3 cm; Wt 88.9 kg
[~2018-09-18 04:13] MED LIST changes: +CEFTIN PO; +DITROPAN XL5 MG PO; +POTASSIUM CHLO10 ME1 PO; +TYLENOL WITH C1 EACH PO
[2018-09-18] MEDS ORDERED: LIDOCAINE HCL 2% 30 ML TUBE ONE (04:36)
[2018-09-18] MEDS ORDERED: HYDROCODONE/APAP 10MG-325MG TAB PO ONE (04:45)
[2018-09-18 05:10] VITALS: BP 131/97
== END 2018-09-18 05:39 | disposition home or self-care (01) ==
LOC: ER 04:13
DX: Z46.6 Encounter for fitting and adjustment of urinary device (principal); R30.0 Dysuria
CPT/HCPCS: 99283

== ENCOUNTER 2018-09-23 06:44 | Emergency (ER) | payer MEDICARE ==
[~2018-09-23] VITALS: Ht 175.3 cm; Wt 88.9 kg
[2018-09-23] MEDS ORDERED: ONDANSETRON HCL INJ 2 MG/ML VIAL IV STA (08:04)
[2018-09-23] MEDS ORDERED: MORPHINE SULFATE 2 MG/ML SYR IV STA (08:04)
[2018-09-23 08:35] LABS: BASOPHILS # (AUTO) 0.1 (0.0-0.1); BASOPHILS % 0.3 % (0.0-1.0); EOSINOPHILS % 0.1 % (0.0-6.0); HEMATOCRIT 47.5 % (38.2-49.6); HEMOGLOBIN 15.5 g/dL (14.0-18.0); LYMPHOCYTES # (AUTO) 0.7 (1.0-3.2); LYMPHOCYTES % 4.7 % (18.0-39.1); MEAN CORPUSCULAR HEMOGLOBIN 31.3 pg (28-32); MEAN CORPUSCULAR HGB CONC 32.6 g/dL (31-35); MONOCYTES # (AUTO) 1.5 (0.2-0.8); MONOCYTES % 9.6 % (4.4-11.3); NEUTROPHILS # (AUTO) 13.1 (2.1-6.9); NEUTROPHILS % 84.8 % (38.7-80.0); PLATELET COUNT 143 x10e3/uL (140-360); RED BLOOD COUNT 4.95 x10e6/uL (4.3-5.7)
[2018-09-23 08:47] LABS: BILIRUBIN,URINE NEGATIVE (NEGATIVE); KETONES,URINE NEGATIVE (NEGATIVE); LEUKOCYTE ESTERASE ,URINE 2+ (NEGATIVE); NITRITE,URINE NEGATIVE (NEGATIVE); PROTEIN,URINE DIPSTICK TRACE (NEGATIVE); URINE UROBILINOGEN 0.2 mg/dL (0.2 - 1)
[2018-09-23 08:53] LABS: ANION GAP 15.2 mmol/L (8-16); CALCIUM 9.6 mg/dL (8.4-10.2); CREATININE, SERUM 1.62 mg/dL (0.72-1.25); POTASSIUM 4.2 mmol/L (3.5-5.1)
[2018-09-23] MEDS ORDERED: SODIUM CHLORIDE 0.9% 50ML 50 ML ONE (08:56)
[2018-09-23 08:57] LABS: COLOR,URINE YELLOW (YELLOW)
[2018-09-23 08:59] LABS: BACTERIA,URINE MANY /HPF; CLARITY,URINE SL CLOUDY (CLEAR); RBC,URINE >50 /HPF (0-5); WBC,URINE (MAN) >50 /HPF (0-5)
[2018-09-23] MEDS ORDERED: CEFTRIAXONE SOD 1 GM VIAL IV NR (09:00)
[2018-09-23] MEDS ORDERED: LEVOFLOXACIN 500 MG TAB PO NR (09:00)
[2018-09-23 09:01] LABS: EPITHELIAL CELLS,URINE FEW /LPF
[2018-09-23] MEDS ORDERED: SODIUM CHLORIDE 0.9% 1000ML 1,000 ML ONE (09:27)
[2018-09-23] MEDS ORDERED: SODIUM CHLORIDE 0.9% 1000ML 1,000 ML IV SCH (09:30)
[2018-09-23] MEDS ORDERED: PHENAZOPYRIDINE HCL 100 MG TAB PO ONE (11:30)
[2018-09-23] MEDS ORDERED: HYDROCODONE/APAP 10MG-325MG TAB PO ONE (11:30)
== END 2018-09-23 13:28 | disposition home or self-care (01) ==
LOC: ER 06:44
DX: Z46.6 Encounter for fitting and adjustment of urinary device (principal); R30.0 Dysuria; N30.91 Cystitis, unspecified with hematuria; N34.1 Nonspecific urethritis
CPT/HCPCS: 36415; 80048; 81001; 85025; 87070; 87086; 87186; 87205; 87491; 87591; 99283; J0696; J2270; J2405; J7030

== ENCOUNTER 2018-09-26 14:46 | Inpatient (IN) | payer MEDICARE ==
[~2018-09-26] VITALS: Ht 175.3 cm; Wt 93.6 kg
[2018-09-26 18:03] LABS: CLARITY,URINE HAZY (CLEAR); COLOR,URINE YELLOW (YELLOW); LEUKOCYTE ESTERASE ,URINE 2+ (NEGATIVE); NITRITE,URINE NEGATIVE (NEGATIVE); PROTEIN,URINE DIPSTICK NEGATIVE (NEGATIVE)
[2018-09-26 18:04] LABS: BILIRUBIN,URINE NEGATIVE (NEGATIVE); KETONES,URINE NEGATIVE (NEGATIVE); URINE UROBILINOGEN 0.2 mg/dL (0.2 - 1)
[2018-09-26 18:07] LABS: WBC,URINE (MAN) >50 /HPF (0-5)
[2018-09-26 18:08] LABS: BACTERIA,URINE FEW /HPF
[2018-09-26 18:11] LABS: EPITHELIAL CELLS,URINE RARE /LPF
[2018-09-26] MEDS ORDERED: SODIUM CHLORIDE 0.9% 1000ML 1,000 ML IV STA (19:09)
[2018-09-26] MEDS ORDERED: DEXTROSE 50% SYRINGE 50 ML IV PRN (19:30)
[2018-09-26] MEDS ORDERED: HYDROMORPHONE 2MG/ML 2 MG/ML ML IV ONE (19:30)
[2018-09-26] MEDS ORDERED: ONDANSETRON HCL INJ 2 MG/ML VIAL IV PRN (19:30)
[2018-09-26] MEDS ORDERED: PIPER-TAZ 3.375 GM 50 ML IV ONE (19:30)
[2018-09-26] MEDS ORDERED: ONDANSETRON HCL INJ 2 MG/ML VIAL IV ONE (19:30)
[2018-09-26 20:41] LABS: BASOPHILS # (AUTO) 0.1 (0.0-0.1); BASOPHILS % 0.5 % (0.0-1.0); EOSINOPHILS # (AUTO) 0.3 (0.0-0.4); EOSINOPHILS % 2.6 % (0.0-6.0); HEMATOCRIT 45.2 % (38.2-49.6); HEMOGLOBIN 14.5 g/dL (14.0-18.0); LYMPHOCYTES # (AUTO) 0.9 (1.0-3.2); LYMPHOCYTES % 7.2 % (18.0-39.1); MEAN CORPUSCULAR HEMOGLOBIN 31.4 pg (28-32); MEAN CORPUSCULAR HGB CONC 32.1 g/dL (31-35); MEAN CORPUSCULAR VOLUME 97.8 fL (81-99); MONOCYTES # (AUTO) 1.4 (0.2-0.8); MONOCYTES % 11.1 % (4.4-11.3); NEUTROPHILS # (AUTO) 9.9 (2.1-6.9); NEUTROPHILS % 77.8 % (38.7-80.0); PLATELET COUNT 147 x10e3/uL (140-360); RED BLOOD COUNT 4.62 x10e6/uL (4.3-5.7); RED CELL DISTRIBUTION WIDTH 14.5 % (11.7-14.4)
[2018-09-26] MEDS: INSULIN LISPRO 100 UNIT/1 ML 3ML VIAL SQ SCH (21:00)
[2018-09-26 21:05] LABS: ALANINE AMINOTRANSFERASE 17 IU/L (0-55); ALBUMIN 2.7 g/dL (3.5-5.0); ALBUMIN/GLOBULIN RATIO 0.6 (0.8-2.0); ALKALINE PHOSPHATASE 163 IU/L (40-150); ANION GAP 14.4 mmol/L (8-16); BLOOD UREA NITROGEN 33 mg/dL (7-26); BUN/CREATININE RATIO 29 (6-25); CALCIUM 9.7 mg/dL (8.4-10.2); CARBON DIOXIDE 24 mmol/L (22-29); CHLORIDE 95 mmol/L (98-107); CREATININE, SERUM 1.12 mg/dL (0.72-1.25); EST GLOMERULAR FILTRATION RATE > 60 ML/MIN (60-); GLUCOSE 187 mg/dL (74-118); POTASSIUM 4.4 mmol/L (3.5-5.1); SODIUM 129 mmol/L (136-145)
[2018-09-26] MEDS: HYDROMORPHONE 2MG/ML 2 MG/ML ML IV PRN (22:40)
--- NOTE | 2018-09-26 22:43 | Diagnostic Imaging Report ---
EXAMINATION: CHEST 2 VIEWS INDICATION: CHF. COMPARISON: 09/13/2018 FINDINGS: PA and lateral views TUBES and LINES: Left chest wall ICD. LUNGS: Moderate lung volumes. Central pulmonary venous congestion with mild interstitial edema. PLEURA: Probable trace effusions. No pneumothorax. HEART AND MEDIASTINUM: Stable enlargement of the cardiac silhouette allowing for differences in technique and lung volumes. Aortic calcifications. BONES AND SOFT TISSUES: No acute osseous lesion. Soft tissues are unremarkable. UPPER ABDOMEN: No free air under the diaphragm. IMPRESSION: Findings suggestive of cardiogenic mild interstitial edema. Signed by: DR. Harry Stewart MD on 09/26/2018 10:40 PM
[2018-09-26 22:55] VITALS: BP 124/89
[2018-09-26] MEDS: SODIUM CHLORIDE 0.9% 1000ML 1,000 ML IV SCH (23:00)
[2018-09-26 23:13] VITALS: BP 124/89
[2018-09-27] VITALS (8 sets, daily range): BP systolic 119–138; BP diastolic 78–96
[2018-09-27] MEDS: FAMOTIDINE 20 MG TAB PO SCH ×3 (00:45→17:24)
[2018-09-27] MEDS: PIPERACILLIN/TAZO 2.25 GM 50 ML IV SCH ×3 (04:03→20:23)
[2018-09-27] MEDS: HYDROMORPHONE 2MG/ML 2 MG/ML ML IV PRN ×5 (05:15→21:48)
[2018-09-27 05:40] LABS: BASOPHILS # (AUTO) 0.1 (0.0-0.1); BASOPHILS % 0.5 % (0.0-1.0); EOSINOPHILS # (AUTO) 0.2 (0.0-0.4); HEMATOCRIT 42.7 % (38.2-49.6); LYMPHOCYTES % 8.8 % (18.0-39.1); MEAN CORPUSCULAR HGB CONC 32.8 g/dL (31-35); MEAN CORPUSCULAR VOLUME 97.5 fL (81-99); MONOCYTES # (AUTO) 1.3 (0.2-0.8); MONOCYTES % 11.5 % (4.4-11.3); NEUTROPHILS # (AUTO) 8.9 (2.1-6.9); NEUTROPHILS % 76.7 % (38.7-80.0); PLATELET COUNT 143 x10e3/uL (140-360); RED BLOOD COUNT 4.38 x10e6/uL (4.3-5.7); RED CELL DISTRIBUTION WIDTH 14.5 % (11.7-14.4)
[2018-09-27 06:03] LABS: ALANINE AMINOTRANSFERASE 18 IU/L (0-55); ALBUMIN 2.6 g/dL (3.5-5.0); ALBUMIN/GLOBULIN RATIO 0.6 (0.8-2.0); ALKALINE PHOSPHATASE 134 IU/L (40-150); ANION GAP 12.3 mmol/L (8-16); BLOOD UREA NITROGEN 31 mg/dL (7-26); BUN/CREATININE RATIO 29 (6-25); CALCIUM 9.3 mg/dL (8.4-10.2); CARBON DIOXIDE 22 mmol/L (22-29); CHLORIDE 100 mmol/L (98-107); CREATININE, SERUM 1.08 mg/dL (0.72-1.25); EST GLOMERULAR FILTRATION RATE > 60 ML/MIN (60-); GLUCOSE 161 mg/dL (74-118); POTASSIUM 4.3 mmol/L (3.5-5.1); SODIUM 130 mmol/L (136-145)
[2018-09-27] MEDS: INSULIN LISPRO 100 UNIT/1 ML 3ML VIAL SQ SCH ×4 (09:27→20:24)
[2018-09-27] MEDS ORDERED: NICOTINE PATCH1 EAC1 TD (10:39)
[2018-09-27] MEDS ORDERED: NICOTINE TD SCH (11:30)
[2018-09-27] MEDS ORDERED: LISINOPRIL 10 MG TAB PO SCH (11:30)
[2018-09-27] MEDS: NICOTINE 21 MG/EA PATCH TOP SCH (12:39)
[2018-09-27] MEDS: LISINOPRIL 20 MG TAB PO SCH (12:40)
[2018-09-27] MEDS: SODIUM CHLORIDE 0.9% 1000ML 1,000 ML IV SCH ×2 (13:30→21:59)
[2018-09-27] MEDS: GABAPENTIN 100 MG CAP PO SCH ×3 (15:00→20:24)
[2018-09-27] MEDS: FUROSEMIDE 40 MG TAB PO SCH ×2 (15:56→20:23)
[2018-09-27] MEDS: CARVEDILOL 12.5 MG TAB PO SCH (17:23)
[2018-09-27] MEDS: TRAMADOL HCL 50 MG TAB PO SCH (17:24)
[2018-09-27] MEDS: SIMETHICONE 80 MG CHEW PO SCH (17:24)
[2018-09-27] MEDS: POTASSIUM CHLORIDE 10MEQ EA PO SCH (17:24)
[2018-09-27] MEDS ORDERED: TEMAZEPAM 15 MG CAP PO PRN (21:00)
[2018-09-28] VITALS (7 sets, daily range): BP systolic 117–138; BP diastolic 74–91
[2018-09-28] MEDS: HYDROMORPHONE 2MG/ML 2 MG/ML ML IV PRN ×4 (02:35→19:45)
[2018-09-28] MEDS: PIPERACILLIN/TAZO 2.25 GM 50 ML IV SCH (04:00)
[2018-09-28] MEDS: SIMETHICONE 80 MG CHEW PO SCH ×4 (04:03→18:06)
[2018-09-28] MEDS: INSULIN LISPRO 100 UNIT/1 ML 3ML VIAL SQ SCH ×4 (07:30→21:00)
[2018-09-28] MEDS: TRAMADOL HCL 50 MG TAB PO SCH ×2 (09:00→18:05)
[2018-09-28] MEDS: GABAPENTIN 100 MG CAP PO SCH ×3 (09:00→21:00)
[2018-09-28] MEDS: POTASSIUM CHLORIDE 10MEQ EA PO SCH ×2 (10:45→18:05)
[2018-09-28] MEDS: FUROSEMIDE 40 MG TAB PO SCH ×3 (10:45→21:00)
[2018-09-28] MEDS: FAMOTIDINE 20 MG TAB PO SCH ×2 (10:45→18:05)
[2018-09-28] MEDS: NICOTINE 21 MG/EA PATCH TOP SCH (10:45)
[2018-09-28] MEDS: LISINOPRIL 20 MG TAB PO SCH (10:45)
[2018-09-28] MEDS: CARVEDILOL 12.5 MG TAB PO SCH ×2 (10:45→18:05)
[2018-09-28] MEDS ORDERED: MEROPENEM 1GM 100 ML IV SCH (12:00)
[2018-09-28] MEDS: MEROPENEM 1 GM VIAL IV SCH ×2 (12:22→19:45)
[2018-09-28] MEDS: DOCUSATE SODIUM 100 MG CAP PO SCH (18:05)
[2018-09-28] MEDS: SODIUM CHLORIDE 0.9% 1000ML 1,000 ML IV SCH (18:06)
[2018-09-29 00:14] VITALS: BP 134/82
[2018-09-29] MEDS: SODIUM CHLORIDE 0.9% 1000ML 1,000 ML IV SCH ×2 (03:24→13:59)
[2018-09-29] MEDS: HYDROMORPHONE 2MG/ML 2 MG/ML ML IV PRN ×5 (03:25→20:04)
[2018-09-29 04:00] VITALS: BP 125/78
[2018-09-29] MEDS: MEROPENEM 1 GM VIAL IV SCH ×3 (04:39→20:03)
[2018-09-29] MEDS: INSULIN LISPRO 100 UNIT/1 ML 3ML VIAL SQ SCH ×4 (07:30→20:04)
[2018-09-29] MEDS ORDERED: ASPIRIN 81 MG CHEW TAB PO ONE (07:45)
[2018-09-29 08:01] VITALS: BP 118/83
[2018-09-29 08:28] LABS: CREATINE KINASE MB 5.8 ng/mL (0-5.0)
[2018-09-29] MEDS: TRAMADOL HCL 50 MG TAB PO SCH (09:00)
[2018-09-29] MEDS: LISINOPRIL 20 MG TAB PO SCH (09:00)
[2018-09-29] MEDS: CARVEDILOL 12.5 MG TAB PO SCH ×2 (09:00→17:00)
[2018-09-29] MEDS: POTASSIUM CHLORIDE 10MEQ EA PO SCH ×2 (09:00→17:00)
[2018-09-29] MEDS: DOCUSATE SODIUM 100 MG CAP PO SCH ×2 (09:00→17:00)
[2018-09-29] MEDS: FUROSEMIDE 40 MG TAB PO SCH ×3 (09:00→20:04)
[2018-09-29] MEDS: SIMETHICONE 80 MG CHEW PO SCH (09:00)
[2018-09-29] MEDS: FAMOTIDINE 20 MG TAB PO SCH ×2 (09:00→17:00)
[2018-09-29] MEDS: GABAPENTIN 100 MG CAP PO SCH (09:00)
[2018-09-29] MEDS: NICOTINE 21 MG/EA PATCH TOP SCH (10:07)
[2018-09-29] MEDS ORDERED: GABAPENTIN 100 MG CAP PO PRN (10:15)
[2018-09-29] MEDS ORDERED: SIMETHICONE 80 MG CHEW PO PRN (10:15)
[2018-09-29] MEDS ORDERED: TRAMADOL HCL 50 MG TAB PO PRN (10:30)
[2018-09-29 12:10] VITALS: BP 112/75
[2018-09-29 16:24] VITALS: BP 119/68
[2018-09-29 20:00] VITALS: BP 115/83
== END 2018-09-29 21:14 | DRG 872 ==
LOC: ER 14:50 → ERHOLD 19:59 → MED/SURG3 22:24
DX: A41.9 Sepsis, unspecified organism (principal); N39.0 Urinary tract infection, site not specified; E87.1 Hypo-osmolality and hyponatremia; E11.9 Type 2 diabetes mellitus without complications; I25.10 Atherosclerotic heart disease of native coronary artery without angina pectoris; I10 Essential (primary) hypertension; F17.210 Nicotine dependence, cigarettes, uncomplicated; B96.20 Unspecified Escherichia coli [E. coli] as the cause of diseases classified elsewhere; Z16.12 Extended spectrum beta lactamase (ESBL) resistance; R31.29 Other microscopic hematuria; N50.89 Other specified disorders of the male genital organs; N45.3 Epididymo-orchitis
CPT/HCPCS: 36415; 71046; 80053; 81001; 82550; 82553; 82948; 83880; 84484; 85025; 87040; 87086; 87186; 93005; 99284; J2185; J2405; J2543; J7030

== ENCOUNTER → 2018-12-21 | Day surgery (SDC) | payer MEDICARE ==
[~2018-12-21] MED LIST changes: +BUMETANIDE1 MG PO; +COUMADIN1 MG PO; +FENTANYL CITRATE/PF 100MCG/2 ML INJ ONE; +MIDAZOLAM HCL 2 MG/2 ML VIAL ONE; +OR PHACO EYE KIT ONE; +PREOP PHACO EYE KIT ONE
[2018-12-21 13:00] VITALS: BP 128/81
== END | disposition home or self-care (01) ==
LOC: OR 09:52
PROVIDERS: ATTEND Ophthalmology
DX: H25.11 Age-related nuclear cataract, right eye (principal); I11.0 Hypertensive heart disease with heart failure; I50.22 Chronic systolic (congestive) heart failure; E11.9 Type 2 diabetes mellitus without complications; Z79.84 Long term (current) use of oral hypoglycemic drugs; Z95.810 Presence of automatic (implantable) cardiac defibrillator; I48.0 Paroxysmal atrial fibrillation; I25.10 Atherosclerotic heart disease of native coronary artery without angina pectoris; J44.9 Chronic obstructive pulmonary disease, unspecified; I73.9 Peripheral vascular disease, unspecified; I83.93 Asymptomatic varicose veins of bilateral lower extremities; Z86.718 Personal history of other venous thrombosis and embolism; Z79.02 Long term (current) use of antithrombotics/antiplatelets; Z79.01 Long term (current) use of anticoagulants
CPT/HCPCS: 36415; 66984; 82948; J2250

== ENCOUNTER → 2019-01-04 | Day surgery (SDC) | payer MEDICARE ==
[~2019-01-04] MED LIST changes: -FENTANYL CITRATE/PF 100MCG/2 ML INJ ONE
[2019-01-04 14:00] VITALS: BP 113/78
== END | disposition home or self-care (01) ==
LOC: OR 10:20
PROVIDERS: ATTEND Ophthalmology
DX: H25.12 Age-related nuclear cataract, left eye (principal); F32.9 Major depressive disorder, single episode, unspecified; F03.90 Unspecified dementia, unspecified severity, without behavioral disturbance, psychotic disturbance, mood disturbance, and anxiety; J44.9 Chronic obstructive pulmonary disease, unspecified; I25.2 Old myocardial infarction; I11.0 Hypertensive heart disease with heart failure; I50.9 Heart failure, unspecified; I48.91 Unspecified atrial fibrillation; B19.20 Unspecified viral hepatitis C without hepatic coma; E11.9 Type 2 diabetes mellitus without complications; F17.210 Nicotine dependence, cigarettes, uncomplicated; Z88.8 Allergy status to other drugs, medicaments and biological substances; Z79.01 Long term (current) use of anticoagulants; Z79.02 Long term (current) use of antithrombotics/antiplatelets; Z95.810 Presence of automatic (implantable) cardiac defibrillator; Z95.5 Presence of coronary angioplasty implant and graft
CPT/HCPCS: 36415; 66984; 82948; J2250; V2632

== ENCOUNTER → 2019-05-06 | Outpatient (CLI) | payer MEDICARE ==
[~2019-05-06] MED LIST changes: -MIDAZOLAM HCL 2 MG/2 ML VIAL ONE; -OR PHACO EYE KIT ONE; -PREOP PHACO EYE KIT ONE
--- NOTE | 2019-05-06 13:00 | Diagnostic Imaging Report ---
Abdominal ultrasound. History: Possible ascites Comparison: CT scan of the abdomen and pelvis dated 06/25/2018. Discussion: Transverse and longitudinal images of the abdomen were obtained demonstrating a liver of normal size and echogenicity measuring 16.2 cm in length. The portal vein is patent with hepatopetal flow and is within normal limits measuring 10 mm in diameter. The biliary tree is within normal limits with the common bile duct measuring 4 mm in diameter. Gallbladder is partially contracted with wall thickening (patient density prior to this study). Small echogenic foci within the body of the gallbladder likely a polyp. The sonographic Verdin's sign was negative. The kidneys are normal in size and echogenicity bilaterally without evidence of hydronephrosis, stones, or mass. The right kidney measures 11.4 x 5.9 x 5.2 cm and the left kidney measures 11.3 x 6.0 x 5.4 cm in length. The spleen is normal in size and appearance measuring 9.3 x 2.2 x 2.9 cm in length. Limited evaluation of the pancreas and aorta due to bowel gas. The IVC is patent. There is no evidence of free fluid. IMPRESSION: 1. No ascites identified with a normal-appearing liver. 2. Partially contracted gallbladder with wall thickening and echogenic wall lesion likely a polyp. Signed by: Dr. Noam Merida DO on 05/06/2019 12:57 PM
== END ==
LOC: US 10:44
PROVIDERS: ATTEND Internal Medicine Gastroenterology
DX: R18.8 Other ascites (principal)
CPT/HCPCS: 76700

== ENCOUNTER → 2019-06-20 | Outpatient (CLI) | payer MEDICARE ==
[~2019-06-20] MED LIST changes: +CALCITRIOL0.25 MCG PO; -COREG12.5 MG; +COREG12.5 MG PO; +LEVEMIR100 UNIT/1 SQ; +METOLAZONE5 MG PO; +SPIRONOLACTONE25 MG PO
--- NOTE | 2019-06-20 16:34 | Diagnostic Imaging Report ---
EXAMINATION: CHEST 2 VIEWS INDICATION: Shortness of breath COMPARISON: Multiple prior chest radiograph most recently 09/26/2018 FINDINGS: LINES/TUBES:Left chest AICD with leads unchanged. LUNGS:The lungs are moderately inflated. Subsegmental atelectasis at the right midlung. No focal consolidation or lonny edema. PLEURA:No pleural effusion or pneumothorax. MEDIASTINUM: Cardiomediastinal silhouette is stably enlarged. Atherosclerotic calcifications of the thoracic aorta. BONES/SOFT TISSUES:No acute osseous injury. ABDOMEN:No free air under the diaphragm. IMPRESSION: Subsegmental atelectasis at the right mid lung. No focal pneumonia or pulmonary edema. Unchanged cardiomegaly. Signed by: Marium Abreu MD on 06/20/2019 4:31 PM
== END ==
LOC: RAD 15:40
DX: R06.02 Shortness of breath (principal)
CPT/HCPCS: 71046

== ENCOUNTER 2019-06-21 14:37 | Inpatient (IN) | payer MEDICARE ==
[~2019-06-21] VITALS: Ht 175.3 cm; Wt 88.9 kg
[~2019-06-21 14:37] MED LIST changes: -CALCITRIOL0.25 MCG PO; -LEVEMIR100 UNIT/1 SQ; -METOLAZONE5 MG PO; -SPIRONOLACTONE25 MG PO
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
[2019-06-21] MEDS ORDERED: SODIUM CHLORIDE 0.9% 500ML 500 ML IV STA (14:54)
[2019-06-21] MEDS ORDERED: CEFEPIME HCL 2 GM VIAL IV ONE (15:00)
[2019-06-21] MEDS ORDERED: SODIUM CHLORIDE FLUSH 10 ML SYR INJ PRN ×2 (15:00→16:45)
[2019-06-21] MEDS ORDERED: PANTOPRAZOLE 40 MG 10ML VIAL IV ONE (15:00)
[2019-06-21] MEDS ORDERED: ONDANSETRON HCL INJ 2MG/ML 2ML 2 MG/ML VIAL IV PRN (15:00)
[2019-06-21] MEDS ORDERED: CEFEPIME 2 GM/NS 0.9% 100 ML 100 ML IV ONE (15:15)
[2019-06-21 15:59] LABS: BASOPHILS % 0.7 % (0.0-1.0); EOSINOPHILS # (AUTO) 0.1 (0.0-0.4); HEMATOCRIT 50.4 % (38.2-49.6); HEMOGLOBIN 15.9 g/dL (14.0-18.0); LYMPHOCYTES # (AUTO) 0.8 (1.0-3.2); LYMPHOCYTES % 14.1 % (18.0-39.1); MEAN CORPUSCULAR HEMOGLOBIN 30.5 pg (28-32); MEAN CORPUSCULAR HGB CONC 31.5 g/dL (31-35); MEAN CORPUSCULAR VOLUME 96.6 fL (81-99); MONOCYTES # (AUTO) 0.7 (0.2-0.8); MONOCYTES % 11.7 % (4.4-11.3); NEUTROPHILS # (AUTO) 4.3 (2.1-6.9); NEUTROPHILS % 72.3 % (38.7-80.0); PLATELET COUNT 134 x10e3/uL (140-360); RED BLOOD COUNT 5.22 x10e6/uL (4.3-5.7)
[2019-06-21] MEDS ORDERED: ALBUTEROL/IPRATROPIUM 3 ML NEB ONE (16:00)
[2019-06-21] MEDS: ALBUTEROL/IPRATROPIUM 3 ML NEB NEB SCH (16:07)
[2019-06-21 16:09] LABS: INR 2.7; PROTHROMBIN TIME 29.4 seconds (11.9-14.5)
--- NOTE | 2019-06-21 16:09 | Diagnostic Imaging Report ---
EXAMINATION: CHEST SINGLE (PORTABLE) INDICATION: Cough COMPARISON: Chest radiograph of 06/20/2019 FINDINGS: LINES/TUBES:Left chest AICD in unchanged position. EKG leads overlie the chest. LUNGS:The lung volumes are low. There is perihilar fullness and indistinctness of the pulmonary vasculature. Patchy retrocardiac airspace opacity. PLEURA:No pleural effusion or pneumothorax. MEDIASTINUM:Cardiomediastinal silhouette is stably enlarged. Atherosclerotic calcifications of the thoracic aorta. BONES/SOFT TISSUES:No acute osseous injury. ABDOMEN:No free air under the diaphragm. IMPRESSION: Interval increase in pulmonary edema. Patchy bibasilar opacities left greater than right more likely represent subsegmental atelectasis than superimposed aspiration or pneumonia. Unchanged cardiomegaly. Signed by: Marium Abreu MD on 06/21/2019 4:06 PM
[2019-06-21 16:10] LABS: PARTIAL THROMBOPLASTIN TIME 44.5 seconds (23.8-35.5)
[2019-06-21 16:25] LABS: ALBUMIN 2.6 g/dL (3.5-5.0); ALBUMIN/GLOBULIN RATIO 0.6 (0.8-2.0); ANION GAP 16.2 mmol/L (8-16); CALCIUM 9.1 mg/dL (8.4-10.2); CREATININE, SERUM 1.74 mg/dL (0.72-1.25); POTASSIUM 3.2 mmol/L (3.5-5.1)
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
[2019-06-21 16:32] LABS: CREATINE KINASE MB 9.4 ng/mL (0-5.0)
[2019-06-21] MEDS ORDERED: HYDROMORPHONE 1MG/1ML INJ IV PRN (16:45)
[2019-06-21] MEDS ORDERED: DEXTROSE 50% SYRINGE 50 ML IV PRN (17:00)
[2019-06-21] MEDS ORDERED: HYDROCODONE/APAP 7.5MG-325MG 1 EA TAB PO PRN (17:00)
[2019-06-21] MEDS ORDERED: SPIRONOLACTONE25 MG PO (17:53)
[2019-06-21] MEDS ORDERED: LEVEMIR100 UNIT/1 SQ (17:53)
[2019-06-21] MEDS ORDERED: CALCITRIOL0.25 MCG PO (17:53)
[2019-06-21] MEDS ORDERED: METOLAZONE5 MG PO (17:53)
[2019-06-21] MEDS: FUROSEMIDE INJ 10 MG/ML 2 ML VIAL IV SCH (17:56)
--- NOTE | 2019-06-21 18:35 | NUR ---
pt alert resp even and unlabored , pt oriented to to room and call light, pt bed in lowest position, bed rails up X2, no distress noted, will cont to monitor.
[2019-06-21 18:45] VITALS: BP 122/82
--- NOTE | 2019-06-21 19:43 | NUR ---
report given to oncoming nurse, pt stable.
--- NOTE | 2019-06-21 19:46 | NUR ---
Received change of shift report from AM nurse. Walking rounds completed.
[2019-06-21 20:17] VITALS: BP 122/82
[2019-06-21] MEDS: INSULIN REGULAR, HUMAN 100 UNIT/1 ML 3ML VIAL SQ SCH (20:49)
[2019-06-21] MEDS: MORPHINE SULFATE 2 MG/ML SYR 1ML IV PRN (20:49)
[2019-06-21] MEDS: ONDANSETRON HCL INJ 2MG/ML 2ML 2 MG/ML VIAL IV PRN (20:49)
[2019-06-21 21:00] VITALS: BP 122/82
[2019-06-22] VITALS (7 sets, daily range): BP systolic 104–126; BP diastolic 56–83
--- NOTE | 2019-06-22 | NUR ---
Patient Admit and assessment completed. Patient require pain meds and given as ordered by MD. Trops decreased from 2.068 to 2.005. Continue monitor. Patient +4 to legs. Left leg more swollen then right. No noted vomiting. Dr Quiñones on the floor to see Patient. Continue monitor.
[2019-06-22] MEDS: MORPHINE SULFATE INJ 4 MG/ML INJ 1ML IV PRN ×4 (00:30→23:30)
[2019-06-22] MEDS: ONDANSETRON HCL INJ 2MG/ML 2ML 2 MG/ML VIAL IV PRN ×5 (00:30→23:31)
[2019-06-22 00:59] LABS: CREATINE KINASE MB 9.2 ng/mL (0-5.0)
--- NOTE | 2019-06-22 01:27 | Consultation ---
DATE OF CONSULTATION: 06/21/2019 Cardiology Consult Note REASON FOR CONSULT: PAD, CAD, chronic systolic heart failure, atrial fibrillation, and chest pain. CHIEF COMPLAINT: Hemoptysis and chest pain. HISTORY OF PRESENT ILLNESS: The patient is a 64-year-old man, who is well known to our service. He is a patient of Dr. Genesis Isbell. He has a long history of coronary artery disease, history of NM, status post stents in the past, history of severe peripheral arterial disease with legs pain, previous attempts at percutaneous intervention unsuccessful, history of chronic atrial fibrillation on Coumadin, who presents to the ER with several days history of coughing phlegm and most recently coughing up some blood. Also reports some dry heaving yesterday. Denies any hematemesis. He says that his sputum is bloody and it is blood tinged. He says he has pain across both sides of his chest, worse when he coughs. Also reports leg pain bilaterally and he is to keep his legs dangling. PAST MEDICAL HISTORY: 1. Coronary artery disease, status post NM in the past. 2. Peripheral arterial disease, severe bilaterally. 3. Atrial fibrillation, on Coumadin. 4. Chronic systolic heart failure. 5. Hypertension. 6. Hyperlipidemia. FAMILY HISTORY: Noncontributory. SOCIAL HISTORY: The patient used to be heavy smoker. Previous drinker. Does not drink anymore. No drugs. REVIEW OF SYSTEMS: As above, otherwise negative. OUTPATIENT MEDICATIONS: Reviewed per the medical record. ALLERGIES: THE PATIENT IS ALLERGIC TO STATINS. OBJECTIVE: VITAL SIGNS: Temperature afebrile, pulse 83, respiratory rate 16, blood pressure 110/86, and saturating 98% on room air. GENERAL: Middle-aged man in no acute distress. Looks uncomfortable. CARDIOVASCULAR: Regular rate and rhythm. No murmurs, rubs, or gallops. LUNGS: Coarse breath sounds bilaterally, worse at the bases. ABDOMEN: Soft, nontender, and nondistended. NEUROLOGIC AND PSYCHIATRIC: The patient is alert and oriented to person, place, and time. Normal affect. INPATIENT MEDICATIONS: Reviewed. LABORATORY DATA: Reviewed. Notable for troponin of 2 and a CK-MB of 9.4. BNP of 2000. Creatinine is 1.7. Hemoglobin is 15.9. INR is 2.7. IMAGING DATA: Reviewed. Chest x-ray shows increased pulmonary edema, patchy bibasilar opacities, left greater than right. ASSESSMENT: 1. Coronary artery disease. 2. Elevated troponin. 3. Acute on chronic systolic heart failure. 4. Peripheral arterial disease with legs pain. 5. Hypertension. 6. Hyperlipidemia. PLAN: Troponins elevated. EKG, no new ischemic changes. BNP is significantly elevated at 2000. Given his symptoms, most likely secondary to acute on chronic systolic heart failure exacerbation. Given complaints of hemoptysis, the patient is not a good candidate for anticoagulation at this time. With his Coumadin, continue aspirin, follow with statin with the diuresis with IV Lasix. We will continue to monitor closely and get a repeat echo. Thank you for this consult. We will continue to follow. MD GIUSEPPE Mabry/PRAVIN /[id number]
[2019-06-22 05:38] LABS: ANION GAP 16.7 mmol/L (8-16); CALCIUM 9.1 mg/dL (8.4-10.2); CREATININE, SERUM 1.77 mg/dL (0.72-1.25); POTASSIUM 3.7 mmol/L (3.5-5.1)
[2019-06-22 05:48] LABS: CREATINE KINASE MB 9.9 ng/mL (0-5.0)
--- NOTE | 2019-06-22 06:41 | NUR ---
Patient trops elevated from 2.005 to 2.207. Called and left message for Dr Castañeda. No call back. Will call primary MD.
--- NOTE | 2019-06-22 06:43 | NUR ---
Paged Dr Gisselle Quiñones. Waiting for call back. Patient medicated for pain =7-8.
[2019-06-22] MEDS: ALBUTEROL/IPRATROPIUM 3 ML NEB NEB SCH ×3 (07:17→18:00)
[2019-06-22] MEDS: INSULIN REGULAR, HUMAN 100 UNIT/1 ML 3ML VIAL SQ SCH ×4 (07:30→20:19)
[2019-06-22] MEDS: FAMOTIDINE 20 MG/2 ML VIAL IV SCH ×2 (08:44→20:27)
[2019-06-22] MEDS: FUROSEMIDE INJ 10 MG/ML 2 ML VIAL IV SCH (08:44)
[2019-06-22] MEDS: MORPHINE SULFATE 2 MG/ML SYR 1ML IV PRN (09:00)
--- NOTE | 2019-06-22 12:00 | NUR ---
Patient is due for 4 units of insulin according to sliding scale orders but patient only wants to take 2 units.
[2019-06-22] MEDS ORDERED: METOLAZONE 5 MG TAB PO SCH (13:30)
--- NOTE | 2019-06-22 14:35 | Progress Note ---
DATE: 06/22/2019 Cardiology Progress Note SUBJECTIVE: No major events overnight. Continues to cough and has pain when he coughs in the upper chest. Has not coughed up any more blood. OBJECTIVE: VITAL SIGNS: Temperature afebrile, pulse 82, respiratory rate 20, blood pressure 107/70, saturating 96% on 3 L nasal cannula. GENERAL: Middle-aged man in no acute distress. CARDIOVASCULAR: Regular rate and rhythm. No murmurs, rubs, or gallops. LUNGS: Coarse breath sounds bilaterally. ABDOMEN: Soft, nontender and nondistended. NEURO AND PSYCH: Alert and oriented to person, place, and time. Normal affect. INPATIENT MEDICATIONS: Reviewed. LABORATORY DATA: Reviewed. Troponin 2.2, which is about stable from admission. CK remains negative. Creatinine 1.8. IMAGING DATA: Reviewed. TELEMETRY DATA: Reviewed, shows atrial fibrillation. ASSESSMENT: 1. Coronary artery disease. 2. Elevated troponin. 3. Acute on chronic systolic heart failure. 4. Peripheral arterial disease with rest pain. 5. Hypertension. 6. Hyperlipidemia. 7. Hemoptysis. PLAN: Troponins elevated similar to his previous episode on the previous admission, likely secondary to type 2 [place]. There are no EKG changes. There is no typical rise and fall in troponins. CK is normal. Continue his dual antiplatelet therapy and risk factor control. Continue diuresing as renal function tolerates. We will hold his Coumadin given hemoptysis. We will continue to monitor closely. Thank you for this consult. MD GIUSEPPE Mabry/PRAVIN /[id number]
[2019-06-22] MEDS: NICOTINE 14 MG/EA PATCH TOP SCH (14:40)
[2019-06-22] MEDS: LACTULOSE SYRUP 20 GM/30 ML UDC PO PRN (14:40)
[2019-06-22] MEDS ORDERED: BUMETANIDE 1 MG TAB PO SCH (15:00)
[2019-06-22] MEDS: POTASSIUM CHLORIDE 20 MEQ TAB CR PO SCH (17:00)
[2019-06-22] MEDS ORDERED: POTASSIUM CHLORIDE 10MEQ EA PO SCH (17:00)
[2019-06-22] MEDS ORDERED: INSULIN DETEMIR 45 UNIT SQ SCH (17:00)
[2019-06-22] MEDS: CARVEDILOL 12.5 MG TAB PO SCH (17:00)
[2019-06-22] MEDS: INSULIN GLARGINE 100 UNITS/ML VIAL SQ SCH (17:00)
--- NOTE | 2019-06-22 17:00 | NUR ---
Patient is refusing potassium replacement. Furosemide 80mg IV is ordered but patient will only take 40mg IV Lasix . He also does not want to take insulin or Carvedilol at this time.
[2019-06-22] MEDS: FUROSEMIDE INJ 10 MG/ML 4 ML VIAL IV SCH (17:15)
--- NOTE | 2019-06-22 18:53 | NUR ---
Dr. Deedee Quiñones was notified of patient's refusal of medications.
--- NOTE | 2019-06-22 19:58 | NUR ---
Received change of shift report from AM nurse. Walking rounds completed.
--- NOTE | 2019-06-22 22:31 | NUR ---
Patient up ambulating int the room with use of walker. Denies pain at this time. Lower legs +3-4 pitting edema. IV intact. BS 152 patient refused Insulin. Continue monitor.
[2019-06-22] MEDS: TEMAZEPAM 15 MG CAP PO PRN (23:31)
[2019-06-23] VITALS (8 sets, daily range): BP systolic 109–130; BP diastolic 78–94
[2019-06-23] MEDS: MORPHINE SULFATE INJ 4 MG/ML INJ 1ML IV PRN ×4 (04:42→23:27)
[2019-06-23] MEDS: ONDANSETRON HCL INJ 2MG/ML 2ML 2 MG/ML VIAL IV PRN ×3 (04:42→23:28)
--- NOTE | 2019-06-23 05:00 | NUR ---
Patient c/o pain and nausea. Meds given as ordered by MD.
[2019-06-23] MEDS: ALBUTEROL/IPRATROPIUM 3 ML NEB NEB SCH ×3 (06:55→18:00)
[2019-06-23] MEDS: INSULIN REGULAR, HUMAN 100 UNIT/1 ML 3ML VIAL SQ SCH ×4 (07:30→21:00)
[2019-06-23] MEDS ORDERED: LISINOPRIL 10 MG TAB PO SCH (09:00)
[2019-06-23] MEDS ORDERED: WARFARIN SOD 1 MG TAB PO SCH (09:00)
[2019-06-23] MEDS ORDERED: SPIRONOLACTONE 25 MG TAB PO SCH (09:00)
[2019-06-23] MEDS ORDERED: WARFARIN SOD 5 MG TAB PO SCH (09:00)
[2019-06-23] MEDS ORDERED: LISINOPRIL 20 MG TAB PO SCH (09:00)
[2019-06-23] MEDS ORDERED: METOLAZONE 5 MG TAB PO SCH (09:00)
[2019-06-23] MEDS: INSULIN GLARGINE 100 UNITS/ML VIAL SQ SCH ×2 (09:20→17:20)
[2019-06-23] MEDS: NICOTINE 14 MG/EA PATCH TOP SCH (09:20)
[2019-06-23] MEDS: POTASSIUM CHLORIDE 20 MEQ TAB CR PO SCH ×2 (09:20→17:20)
[2019-06-23] MEDS: CARVEDILOL 12.5 MG TAB PO SCH ×2 (09:20→17:20)
[2019-06-23] MEDS: CLOPIDOGREL BISULFATE 75 MG TAB PO SCH (09:29)
[2019-06-23] MEDS: CALCITRIOL 0.25 MCG CAP PO SCH (09:29)
[2019-06-23] MEDS: FUROSEMIDE INJ 10 MG/ML 4 ML VIAL IV SCH ×2 (09:29→17:20)
[2019-06-23] MEDS: FAMOTIDINE 20 MG/2 ML VIAL IV SCH ×2 (09:29→21:00)
--- NOTE | 2019-06-23 12:21 | Diagnostic Imaging Report ---
EXAMINATION: CHEST 2 VIEWS INDICATION: Shortness of breath COMPARISON: Chest radiograph 06/21/2019 FINDINGS: LINES/TUBES:Left chest AICD with leads unchanged. EKG leads overlie the chest. LUNGS:The lungs are moderately inflated. There is perihilar fullness and indistinctness of the pulmonary vasculature. PLEURA:No pleural effusion or pneumothorax. MEDIASTINUM:Cardiomediastinal silhouette is stably enlarged. Atherosclerotic calcifications of the thoracic aorta. BONES/SOFT TISSUES:No acute osseous injury. ABDOMEN:No free air under the diaphragm. IMPRESSION: Unchanged pulmonary edema. Stable cardiomegaly. Signed by: Marium Abreu MD on 06/23/2019 12:17 PM
--- NOTE | 2019-06-23 19:25 | NUR ---
Patient received lying in bed. AAO x 3. Patient had no complaints of pain. Respirations even and non-labored on 2L NC. Telemetry dept. records rhythm as Paced at 80.
[2019-06-24] VITALS (7 sets, daily range): BP systolic 112–123; BP diastolic 76–89
[2019-06-24] MEDS: TEMAZEPAM 15 MG CAP PO PRN (00:04)
--- NOTE | 2019-06-24 00:43 | Progress Note ---
DATE: 06/23/2019 Cardiology Progress Note SUBJECTIVE: No major events overnight. OBJECTIVE: VITAL SIGNS: Temperature afebrile. Please see medical records for detailed vital signs. GENERAL: Middle-aged man, in no acute distress. CARDIOVASCULAR: Regular rate and rhythm. No murmurs, rubs, or gallops. LUNGS: Clear to auscultation bilaterally. ABDOMEN: Soft, nontender, and nondistended. NEURO AND PSYCH: Alert and oriented to person, place, and time. Normal affect. INPATIENT MEDICATIONS: Reviewed. LABORATORY DATA: Reviewed. TELEMETRY DATA: Reviewed. ASSESSMENT AND PLAN: 1. Hemoptysis. 2. Chronic atrial fibrillation. 3. Acute on chronic systolic heart failure exacerbation, ejection fraction less than 20%. 4. History of coronary artery disease, status post stenting. 5. History of severe peripheral arterial disease with severe claudication. PLAN: Continue diuresing as renal function tolerates. Hold Coumadin. Given hemoptysis. Continue aspirin and Plavix. Thank you for this consult. We will continue to follow. MD GIUSEPPE Mabry/ODALYSL /[id number]
[2019-06-24 05:19] LABS: BASOPHILS % 0.7 % (0.0-1.0); EOSINOPHILS # (AUTO) 0.1 (0.0-0.4); EOSINOPHILS % 2.2 % (0.0-6.0); HEMATOCRIT 50.8 % (38.2-49.6); HEMOGLOBIN 16.3 g/dL (14.0-18.0); LYMPHOCYTES % 17.1 % (18.0-39.1); MEAN CORPUSCULAR HEMOGLOBIN 30.6 pg (28-32); MEAN CORPUSCULAR HGB CONC 32.1 g/dL (31-35); MEAN CORPUSCULAR VOLUME 95.5 fL (81-99); MONOCYTES # (AUTO) 0.6 (0.2-0.8); MONOCYTES % 11.3 % (4.4-11.3); NEUTROPHILS # (AUTO) 3.8 (2.1-6.9); NEUTROPHILS % 68.3 % (38.7-80.0); PLATELET COUNT 123 x10e3/uL (140-360); RED BLOOD COUNT 5.32 x10e6/uL (4.3-5.7); RED CELL DISTRIBUTION WIDTH 15.2 % (11.7-14.4)
[2019-06-24] MEDS: MORPHINE SULFATE INJ 4 MG/ML INJ 1ML IV PRN ×4 (05:25→18:54)
[2019-06-24] MEDS: ONDANSETRON HCL INJ 2MG/ML 2ML 2 MG/ML VIAL IV PRN ×4 (05:26→18:55)
--- NOTE | 2019-06-24 05:30 | NUR ---
Urine specimen sent to lab for analysis.
[2019-06-24 05:34] LABS: ANION GAP 14.5 mmol/L (8-16); CALCIUM 9.1 mg/dL (8.4-10.2); CREATININE, SERUM 2.09 mg/dL (0.72-1.25); POTASSIUM 3.5 mmol/L (3.5-5.1)
[2019-06-24] MEDS: ALBUTEROL/IPRATROPIUM 3 ML NEB NEB SCH ×2 (06:00→13:30)
--- NOTE | 2019-06-24 07:00 | NUR ---
Patient resting comfortably . Walking rounds done. Shift report given to oncoming nurse.
[2019-06-24 07:01] LABS: BAND NEUTROPHILS % (MANUAL) 2 %; LYMPHOCYTES % (MANUAL) 14 % (19-48); MONOCYTES % (MANUAL) 8 % (3.4-9.0); NEUTROPHILS % (MANUAL) 74 % (40-74)
[2019-06-24 07:02] LABS: PLATELET ESTIMATE ADEQUATE; PLATELET MORPHOLOGY COMMENT NORMAL; RBC MORPHOLOGY COMMENT NORMAL
--- NOTE | 2019-06-24 07:10 | NUR ---
RCD PT AT BED PT IS ALERT AND ORIENTED PT RESTING ON BED IV PATENT BY SALINE FLUSH BED LOW AND LOCKED CALL LIGHT IN REACH
[2019-06-24] MEDS: INSULIN REGULAR, HUMAN 100 UNIT/1 ML 3ML VIAL SQ SCH ×3 (07:30→16:30)
[2019-06-24] MEDS: INSULIN GLARGINE 100 UNITS/ML VIAL SQ SCH ×2 (08:00→17:00)
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
[2019-06-24] MEDS: NICOTINE 14 MG/EA PATCH TOP SCH (09:00)
[2019-06-24] MEDS: POTASSIUM CHLORIDE 20 MEQ TAB CR PO SCH ×2 (09:00→17:00)
[2019-06-24] MEDS: CALCITRIOL 0.25 MCG CAP PO SCH (09:00)
[2019-06-24] MEDS: CARVEDILOL 12.5 MG TAB PO SCH ×2 (09:00→17:00)
[2019-06-24] MEDS: FUROSEMIDE INJ 10 MG/ML 4 ML VIAL IV SCH (09:00)
[2019-06-24] MEDS: FAMOTIDINE 20 MG/2 ML VIAL IV SCH (09:00)
[2019-06-24] MEDS: CLOPIDOGREL BISULFATE 75 MG TAB PO SCH (09:00)
[2019-06-24] MEDS ORDERED: ALBUTEROL/IPRATROPIUM 3 ML NEB NEB PRN (12:30)
--- NOTE | 2019-06-24 16:12 | NUR ---
Received MOT from Juany Radha [place] [address] [place] [id number] Deedee Quiñones to attend Edmund Augustin, PHARMACIST MOT completed and given to Tegan, director of community education. Notified MAKI White of MOT.
--- NOTE | 2019-06-24 16:30 | NUR ---
PATIENT APPROVED BY RYAN VANEGAS AND NOTIFIED DR Deedee JORGE GOT THE DISCHARGE ORDER
--- NOTE | 2019-06-24 17:03 | Progress Note ---
DATE: 06/24/2019 Cardiology Progress Note SUBJECTIVE: No major events overnight. Feels better. OBJECTIVE: VITAL SIGNS: Temperature afebrile, pulse is 80, respiratory rate 19, blood pressure 122/79, saturating 98% on 2 L nasal cannula. GENERAL: man in no acute distress. CARDIOVASCULAR: Regular rate and rhythm. No murmurs, rubs, or gallops. LUNGS: Bibasilar crackles. ABDOMEN: Soft, nontender, nondistended. NEURO AND PSYCH: Alert, oriented to person, place, and time. Normal affect. EXTREMITIES: 3+ pitting edema bilaterally. Pulses are not palpable. INPATIENT MEDICATIONS: Reviewed. LABORATORY DATA: Reviewed. TELEMETRY DATA: Reviewed. ASSESSMENT: 1. Hemoptysis. 2. Chronic atrial fibrillation. 3. Acute on chronic systolic heart failure. 4. History of coronary artery disease, status post stenting. 5. History of severe peripheral arterial disease with severe claudication. PLAN: Continue aggressive diuresis. Troponins were elevated on admission secondary to type 2 [place] in the setting of acute on chronic CHF exacerbation and poor renal function. Hold Coumadin due to hemoptysis. Continue Plavix given CAD. Echo showed ejection fraction is still less than 20%, unchanged from prior. Thank you for this consult. We will continue to follow. MD GIUSEPPE Mabry/ODALYSL /[id number]
--- NOTE | 2019-06-24 18:07 | NUR ---
REPORT GIVEN TO KARISSA GAMBINO AND NOTIFIED MGMT CONSULTANT
--- NOTE | 2019-06-24 18:52 | NUR ---
PT RESTING ON BED BED SIDE REPORT GIVEN TO ONCOMING NURSE
[2019-06-24] MEDS: LACTULOSE SYRUP 20 GM/30 ML UDC PO PRN (19:30)
--- NOTE | 2019-06-24 20:13 | NUR ---
Discharge patient via stretcher with EMS. O2 at 2 liters/min. No complaints at this time. Patient is alert and responsive.
[2019-06-24] MEDS ORDERED: FUROSEMIDE INJ 10 MG/ML 4 ML VIAL IV SCH (21:00)
--- NOTE | 2019-07-29 15:58 | Discharge Summary ---
CHIEF COMPLAINT: Increased weakness and severe short of breath at rest. FINAL DIAGNOSES: End-stage congestive heart failure with an ejection function of 20%, atrial fibrillation, and pulmonary edema. DISPOSITION: [facility], [facility]. HOSPITAL COURSE: A 64-year-old male, known history of end-stage congestive heart failure, brought to the ER with increased weakness, severe shortness of breast at rest, some chest pain with minimal exertion. Also, complains of hemoptysis for the past 5 days. No other complaints. Reviewed and evaluated in the emergency room. Chest was demonstrating inspiratory crackles with bibasilar rales. Lower extremities were demonstrating 4+ pitting edema and with review of blood work and x-rays, admission was made for treatment regarding the complaints of presentation of severe shortness of breath, hemoptysis, atrial fib, coronary artery disease, acute congestive heart failure elevated pulmonary edema, and diabetes type 2. We will begin IV Lasix and will be requesting a Cardiology followup. We will monitor the patient's blood sugars. With admission regarding his end-stage congestive heart failure along with his presentation, he was being reviewed by Cardiology, Dr. Burkett and with his evaluation, his impression was coronary artery disease, elevated troponin, apfcb-tz-hvvsrtz systolic heart failure, peripheral arterial disease with legs pain, hypertension, and hyperlipidemia. Troponin levels were elevated. The EKG shows no new ischemic changes. BNP is significantly elevated. With the symptoms most likely secondary to qmjil-ap-qpesrqz systolic heart failure exacerbation and has issues with hemoptysis, the patient is not a good candidate for anticoagulation at this time. The patient was admitted to the Med-Surg floor, was continued on ADA diet, still having issues with shortness of breath, was on his daily medications. We also gave him medications for pain control, was continued with his routine insulin management. Lab studies were continued to be followed. IV Lasix was continuing. Monitoring was made closely for his input and outtake. Still having some complaints of shortness of breath with minimal exertion. Extremities were still showing 4+ pitting edema. The Lasix was continued. Discussions are being made to place the patient in LTAC facility for continued long-term management of his present condition. He is beginning to feel better, was responding to the nebulizer treatments, was responding to the IV Lasix, however, he was still showing pitting edema to lower extremities. Case management was called in to assist placement for [facility]. He was accepted at that facility and then was to be transferred there on 06/24/2019, in stable with guarded condition. IMAGING: Chest x-ray revealed interval decrease in pulmonary edema. Patchy bibasilar opacities left greater than right, more likely represents segmental atelectasis than superimposed aspiration or pneumonia. Unchanged cardiomegaly. Chest x-ray was repeated two days later using the first study for comparison and findings were showing unchanged pulmonary edema. Stable cardiomegaly. Urine studies were negative. LABORATORY STUDIES: Initial study shows a CBC; white cell count normal, H and H were 15.9 and 50.4, and platelets were little low at 134,000. Followup final CBC shows a white cell count basically the same. H and H were basically the same. Final platelet count had drifted downward to 123,000. Chemistries; initial study electrolytes, sodium 134, and potassium 3.2. Kidney functions, BUN 30, creatinine 1.74, and glucose 149. Total bilirubin 3.2, AST 39, ALT 23, and alk phos 134. First set of cardiac enzymes, CPK normal, CK-2 was 9.40. Troponin I is elevated at 2.068. BNP was elevated at ____ QA MARKER: [id number]#6:Comment ____. Further chemistries were showing improvement in the electrolytes, kidney functions remain elevated, liver studies were improving, cardiac enzymes were basically remaining the same. Final study shows CPK normal, CK-2 of 9.90, troponin I of 2.207. Final glucose 154, final potassium 3.5, final BUN 41, and creatinine 2.09. The patient was accepted to [facility]. Transferred to that facility. Continuing on 2 L O2 nasal cannula along with his ____ QA MARKER: 505#3:Comment ____ current ADA diet. I will continue to follow along in this patient's care in that facility and will be evaluating the patient daily. Adjustments will be made as needed. Dictated by ALEXIS Ayers Ascencion Quiñones MD CC/MODL /[id number]
--- NOTE | 2019-08-15 10:31 | Carotid Duplex Report ---
CHIEF COMPLAINT: Increased weakness and severe short of breath at rest. FINAL DIAGNOSES: End-stage congestive heart failure with an ejection function of 20%, atrial fibrillation, and pulmonary edema. DISPOSITION: [facility], [facility]. HOSPITAL COURSE: A 64-year-old male, known history of end-stage congestive heart failure, brought to the ER with increased weakness, severe shortness of breast at rest, some chest pain with minimal exertion. Also, complains of hemoptysis for the past 5 days. No other complaints. Reviewed and evaluated in the emergency room. Chest was demonstrating inspiratory crackles with bibasilar rales. Lower extremities were demonstrating 4+ pitting edema and with review of blood work and x-rays, admission was made for treatment regarding the complaints of presentation of severe shortness of breath, hemoptysis, atrial fib, coronary artery disease, acute congestive heart failure elevated pulmonary edema, and diabetes type 2. We will begin IV Lasix and will be requesting a Cardiology followup. We will monitor the patient's blood sugars. With admission regarding his end-stage congestive heart failure along with his presentation, he was being reviewed by Cardiology, Dr. Burkett and with his evaluation, his impression was coronary artery disease, elevated troponin, ncbbb-gn-vipxnlr systolic heart failure, peripheral arterial disease with legs pain, hypertension, and hyperlipidemia. Troponin levels were elevated. The EKG shows no new ischemic changes. BNP is significantly elevated. With the symptoms most likely secondary to dwnrq-ms-qnagafz systolic heart failure exacerbation and has issues with hemoptysis, the patient is not a good candidate for anticoagulation at this time. The patient was admitted to the Med-Surg floor, was continued on ADA diet, still having issues with shortness of breath, was on his daily medications. We also gave him medications for pain control, was continued with his routine insulin management. Lab studies were continued to be followed. IV Lasix was continuing. Monitoring was made closely for his input and outtake. Still having some complaints of shortness of breath with minimal exertion. Extremities were still showing 4+ pitting edema. The Lasix was continued. Discussions are being made to place the patient in LTAC facility for continued long-term management of his present condition. He is beginning to feel better, was responding to the nebulizer treatments, was responding to the IV Lasix, however, he was still showing pitting edema to lower extremities. Case management was called in to assist placement for [facility]. He was accepted at that facility and then was to be transferred there on 06/24/2019, in stable with guarded condition. IMAGING: Chest x-ray revealed interval decrease in pulmonary edema. Patchy bibasilar opacities left greater than right, more likely represents segmental atelectasis than superimposed aspiration or pneumonia. Unchanged cardiomegaly. Chest x-ray was repeated two days later using the first study for comparison and findings were showing unchanged pulmonary edema. Stable cardiomegaly. Urine studies were negative. LABORATORY STUDIES: Initial study shows a CBC; white cell count normal, H and H were 15.9 and 50.4, and platelets were little low at 134,000. Followup final CBC shows a white cell count basically the same. H and H were basically the same. Final platelet count had drifted downward to 123,000. Chemistries; initial study electrolytes, sodium 134, and potassium 3.2. Kidney functions, BUN 30, creatinine 1.74, and glucose 149. Total bilirubin 3.2, AST 39, ALT 23, and alk phos 134. First set of cardiac enzymes, CPK normal, CK-2 was 9.40. Troponin I is elevated at 2.068. BNP was elevated at . Further chemistries were showing improvement in the electrolytes, kidney functions remain elevated, liver studies were improving, cardiac enzymes were basically remaining the same. Final study shows CPK normal, CK-2 of 9.90, troponin I of 2.207. Final glucose 154, final potassium 3.5, final BUN 41, and creatinine 2.09. The patient was accepted to [facility]. Transferred to that facility. Continuing on 2 L O2 nasal cannula along with his current ADA diet. I will continue to follow along in this patient's care in that facility and will be evaluating the patient daily. Adjustments will be made as needed. Dictated by ALEXIS Ayers Ascencion Quiñones MD CC/MODL /[id number]
== END 2019-06-24 20:03 | DRG 280 ==
LOC: ER 14:37 → ERHOLD 15:33 → MED/SURG2 18:27
DX: I21.A1 Myocardial infarction type 2 (principal); I50.23 Acute on chronic systolic (congestive) heart failure; J96.21 Acute and chronic respiratory failure with hypoxia; I13.0 Hypertensive heart and chronic kidney disease with heart failure and stage 1 through stage 4 chronic kidney disease, or unspecified chronic kidney disease; R04.2 Hemoptysis; I25.10 Atherosclerotic heart disease of native coronary artery without angina pectoris; E78.5 Hyperlipidemia, unspecified; I48.2 Chronic atrial fibrillation; Z79.01 Long term (current) use of anticoagulants; I70.223 Atherosclerosis of native arteries of extremities with rest pain, bilateral legs; Z95.5 Presence of coronary angioplasty implant and graft; E11.22 Type 2 diabetes mellitus with diabetic chronic kidney disease; N18.3 Chronic kidney disease, stage 3 (moderate); E11.51 Type 2 diabetes mellitus with diabetic peripheral angiopathy without gangrene
CPT/HCPCS: 36415; 71045; 71046; 80048; 80053; 82550; 82553; 82948; 83880; 84484; 85025; 85610; 85730; 87086; 93005; 93306; 94640; 99284; J1815; J1817; J1940; J2270; J2405; J7040

== ENCOUNTER 2019-07-22 05:53 | Inpatient (IN) | payer MEDICARE ==
[~2019-07-22] VITALS: Ht 175.3 cm; Wt 88.9 kg
[2019-07-22] VITALS (17 sets, daily range): BP systolic 109–130; BP diastolic 77–99
[~2019-07-22 05:53] MED LIST changes: +CALCITRIOL0.25 MCG PO; +LEVEMIR100 UNIT/1 SQ; +METOLAZONE5 MG PO; +SPIRONOLACTONE25 MG PO
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
[2019-07-22 06:33] LABS: ABG HCO3 30 mmol/L (23-28); ABG PCO2 39 mmHg (41-51); ABG PO2 254 mmHg (80-105)
[2019-07-22 06:34] LABS: BASOPHILS % 0.4 % (0.0-1.0); EOSINOPHILS % 0.4 % (0.0-6.0); HEMATOCRIT 50.4 % (38.2-49.6); HEMOGLOBIN 16.4 g/dL (14.0-18.0); LYMPHOCYTES # (AUTO) 0.8 (1.0-3.2); LYMPHOCYTES % 11.2 % (18.0-39.1); MEAN CORPUSCULAR HEMOGLOBIN 30.3 pg (28-32); MEAN CORPUSCULAR HGB CONC 32.5 g/dL (31-35); MEAN CORPUSCULAR VOLUME 93.2 fL (81-99); MONOCYTES # (AUTO) 0.9 (0.2-0.8); MONOCYTES % 12.8 % (4.4-11.3); NEUTROPHILS # (AUTO) 5.1 (2.1-6.9); NEUTROPHILS % 74.6 % (38.7-80.0); PLATELET COUNT 150 x10e3/uL (140-360); RED BLOOD COUNT 5.41 x10e6/uL (4.3-5.7); RED CELL DISTRIBUTION WIDTH 16.2 % (11.7-14.4)
[2019-07-22] MEDS ORDERED: FUROSEMIDE INJ 10 MG/ML 4 ML VIAL IV ONE (06:45)
[2019-07-22] MEDS ORDERED: CEFTRIAXONE SOD 1 GM/NS 50 ML 50 ML IV ONE (06:45)
[2019-07-22 06:54] LABS: ALBUMIN 2.6 g/dL (3.5-5.0); ALBUMIN/GLOBULIN RATIO 0.6 (0.8-2.0); ANION GAP 15.8 mmol/L (8-16); CALCIUM 9.5 mg/dL (8.4-10.2); CREATININE, SERUM 2.05 mg/dL (0.72-1.25)
--- NOTE | 2019-07-22 06:57 | Diagnostic Imaging Report ---
EXAMINATION: CHEST SINGLE (PORTABLE) COMPARISON: Chest x-ray 06/21/2019 INDICATION: Shortness of breath ^SOB ^[id number] ^[id number] DISCUSSION: Frontal view of the chest obtained at 0631 hours. HEART AND MEDIASTINUM: Stable cardiomegaly. Pulmonary arteries are prominent suggestive of pulmonary artery hypertension. LINES: Pacer/defibrillator wires are present in the right atrium, right ventricle, coronary sinus LUNGS: Lung volumes remain low. Intrapulmonary vasculature is mildly prominent. No confluent infiltrates. PLEURA: No pleural effusion or pneumothorax. BONES AND SOFT TISSUES: No focal osseous lesion. The soft tissues are normal. IMPRESSION: Mild pulmonary vascular congestion. No infiltrates. Stable cardiomegaly and suspected pulmonary artery hypertension. Signed by: Dr. Crystal Chang MD on 07/22/2019 6:54 AM
[2019-07-22 07:00] LABS: CREATINE KINASE MB 10.2 ng/mL (0-5.0)
[2019-07-22 07:03] LABS: POTASSIUM 2.8 mmol/L (3.5-5.1)
--- NOTE | 2019-07-22 07:04 | NUR ---
DR. PRASAD AND DR. WHATLEY NOTIFIED AND AWARE OF CRITICAL LAB VALUES; POTASSIUM 2.8 AND TROPONIN 2.791.
--- NOTE | 2019-07-22 07:13 | NUR ---
report given to alison wilder
[2019-07-22] MEDS ORDERED: ASPIRIN 81 MG CHEW TAB PO ONE (07:15)
[2019-07-22 07:29] LABS: RBC,URINE 0-5 /HPF (0-5)
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
--- NOTE | 2019-07-22 07:39 | NUR ---
Case discussed with Dr. Isbell- pt is currently and NSTEMI- on coumadin for A Fib- pending INR prior to possible iniation of Heparin drip. Pt to be admitted to ICU, will possibly need Heparin drip in INR<2- [place] informed. Pt off BIPAP at time of admission. CXR reviewed by me.
--- NOTE | 2019-07-22 07:41 | NUR ---
RIGHT FOREARM 20G IV STARTED, NO SIGNS OF INFILTRATION, DRAWING BLOOD BACK, PATIENT STATES NO DISTRESS TO IV WHEN FLUSHING. EDUCATED PATIENT ON SIGNS OF INFILTRATION
[2019-07-22 07:42] LABS: BILIRUBIN,URINE NEGATIVE (NEGATIVE); CLARITY,URINE CLEAR (CLEAR); COLOR,URINE YELLOW (YELLOW); KETONES,URINE NEGATIVE (NEGATIVE); LEUKOCYTE ESTERASE ,URINE NEGATIVE (NEGATIVE); NITRITE,URINE NEGATIVE (NEGATIVE); PROTEIN,URINE DIPSTICK NEGATIVE (NEGATIVE); URINE UROBILINOGEN 0.2 mg/dL (0.2 - 1)
--- NOTE | 2019-07-22 07:45 | NUR ---
PT PLACED ON [place]ALE
[2019-07-22 07:46] LABS: INR 1.89; PROTHROMBIN TIME 22.4 seconds (11.9-14.5)
--- NOTE | 2019-07-22 07:55 | NUR ---
JOSIAH HERE TO SEE PT
--- NOTE | 2019-07-22 08:00 | NUR ---
DR RAHMAN IN ROOM WITH PT; PT STATES HE WILL NOT TAKE POTASSIUM EITHER IV OR PO UNLESS IT IS "EFFERVESENT" STATES DR JORGE HAS PRESCRIBED IT TO HIM IN THE PAST AND HE WILL ONLY ACCEPT IT IN THAT FORM STATES HE CANNOT TOLERATE IT OTHERWISE AND STATES THAT HE WILL NOT TAKE IT IV BECAUSE HE HEARD IT CAN BURN; NURSE EXPLAINS THAT RATE CAN BE SLOWED DOWN OR PIGGYBACKED OFF NS TO HELP STOP BURN IF IT DOES BURN AND THAT PT MAY NOT NECESSARILY FEEL BURN EVERY PT IS DIFFERENT; DR RAHMAN AND DR PRASAD EXPLAINS TO PT NECESSITY FOR POTASSIUM AND REFUSAL CAN LEAD TO ; PT CONTINUES REFUSE POTASSIUM; PT ALSO REFUSES LASIX AND ROCEPHIN; BENEFITS OF AND REFUSAL OF MEDICATIONS EXPLAINED TO PT AND PT CONTINUES TO REFUSE
[2019-07-22] MEDS: POTASSIUM CHLORIDE 20MEQ/100ML 200 ML IV ONE ×2 (08:16→08:35)
--- NOTE | 2019-07-22 08:21 | NUR ---
PT STATES HE WILL NOW ACCEPT LASIX AND ROCEPHIN; BOTH ADMINISTERED
[2019-07-22] MEDS ORDERED: HEPARIN SOD (PORCINE) 5,000 UNIT/ML VIAL IV ONE (08:30)
--- NOTE | 2019-07-22 08:33 | NUR ---
PT STATES HE WILL NOW ACCEPT IV POTASSIUM AND DR RAHMAN NOTIFIED
[2019-07-22] MEDS ORDERED: SODIUM CHLORIDE 0.9% 1000ML 1,000 ML ONE (08:34)
--- NOTE | 2019-07-22 08:34 | NUR ---
PER DR JOSIAH CALDWELL TO DILUTE POTASSIUM WITH NS 1000 CC TO HELP DECREASE BURNING SENSATION
--- NOTE | 2019-07-22 08:35 | NUR ---
already on javon yu per protocol
[2019-07-22] MEDS ORDERED: HEPARIN 25,000 UNIT DRIP IV ONE (09:01)
[2019-07-22] MEDS: HEPARIN 25,000 UNIT 900 UNIT in DEXTROSE 5% 250ML 250 ML IV SCH (09:21)
--- NOTE | 2019-07-22 09:21 | History and Physical ---
CHIEF COMPLAINT: Shortness of breath and chest pain. HISTORY OF PRESENT ILLNESS: This is a 64-year-old man, who presents to [facility] Emergency Room with 45-day history of intermittent dull chest pressure that radiates across this chest. The patient states that prompted him to come to the emergency room early this morning was worsening shortness of breath as well as generalized weakness and fogginess in his mind. The patient states he does not feel right. He also states he has gained significant amount of weight since he was discharged from [facility] on July 08, 2019. In the emergency room, a 12-lead EKG did not reveal any acute ischemic changes, but it did reveal ventricular paced rhythm. However, the patient's initial troponin I is elevated at 2.791. The patient's B-type natriuretic peptide was elevated at 3027. The patient's potassium is also low at 2.8. The patient's BUN and creatinine 61 and 2.05 respectively. The patient's AST and ALT are 41 and 21 respectively. Chest x-ray performed in the emergency room revealed stable cardiomegaly with mild pulmonary vascular congestion. The patient was admitted for further evaluation and treatment. The patient underwent a 2D echocardiogram on June 22, 2019, that revealed left ventricular ejection fraction of 20% to 25% with left atrial enlargement and restrictive LV filling pattern consistent with elevated LA pressure. Moreover, the right ventricular systolic function is severely impaired. REVIEW OF SYSTEMS: GENERAL: The patient has gained weight since he was discharged from hospital two weeks ago, but he cannot quantify the exact amount. No fever or chills. He complains of generalized weakness. He states at times he has foggy mind. HEENT: No headaches. No visual changes, but once again complains of foggy mind. CARDIOVASCULAR: Worsening shortness of breath over last few days. He has had dull pressure across his chest over the last 4 to 5 days. No cough. GI: No nausea, vomiting, diarrhea, or constipation. : No dysuria, hematuria, or incontinence. NEUROMUSCULAR: No limb weakness. He does complain generalized weakness. The patient states that he has had more swelling in his legs recently. PAST MEDICAL HISTORY: 1. Chronic atrial fibrillation. 2. Coronary artery disease (two coronary stents placed in 2013). 3. Chronic systolic/diastolic congestive heart failure. 4. Stage 3 chronic kidney disease. 5. Severe peripheral artery disease. 6. Tobacco abuse. 7. Type 2 diabetes mellitus. SURGICAL HISTORY: 1. Two coronary stents placed in 2013. 2. Right lower extremity arterial stents placed in 2013. 3. AICD implantation. 4. Biventricular AICD upgrade in June 2018. ALLERGIES: STATINS (CAUSE SEVERE MYALGIAS). FAMILY HISTORY: Mother and father had coronary artery disease. SOCIAL HISTORY: Lives in his house with a lady friend. 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 The patient has a history of heavy tobacco smoking, but apparently quit in 2018. The patient denies any history of alcohol or illicit drug use. HOME MEDICATIONS: 1. Bumex 2 mg t.i.d. 2. Calcitriol 0.25 mcg daily. 3. Carvedilol 12.5 mg b.i.d. 4. Clopidogrel 75 mg daily. 5. Lisinopril 40 mg daily. 6. Metolazone 2.5 mg daily. 7. Potassium chloride 20 mEq b.i.d. 8. Spironolactone 25 mg daily. 9. Warfarin 5 mg daily. 10. Levemir insulin 45 units subcutaneous twice a day. PHYSICAL EXAMINATION: GENERAL: He is awake, alert. He is fully oriented. VITAL SIGNS: Blood pressure is 122/86, pulse 84, respiratory rate is 24, oxygen saturation 96% on room air, and temperature 97.8. According to emergency medical services, his oxygen saturation was 95% at home. Height 5 feet 9 inches, weight 200 pounds, BMI 29. INTEGUMENT: Skin is warm and dry. No pallor, jaundice, or diaphoresis. HEENT: Anicteric sclerae. Moist mucous membranes. NECK: Supple. No evidence of jugular venous distention. CARDIOVASCULAR: Distant heart sounds. Regular rate and rhythm with S3 gallop. LUNGS: Faint crackles bilaterally. ABDOMEN: Benign. EXTREMITIES: The patient has 2+ edema in bilateral lower legs. NEUROLOGICAL: Intact. DIAGNOSES: 1. Non-ST elevated myocardial infarction. 2. Coronary artery disease. 3. Acute on chronic systolic/diastolic congestive heart failure. 4. Chronic atrial fibrillation. 5. Stage 3 chronic kidney disease. 6. Hypokalemia. PLAN: 1. Replete potassium level (the patient however is refusing intravenous potassium as well as oral potassium chloride, he is requesting oral effervescent potassium supplementation). 2. Intravenous furosemide. 3. Followup cardiac enzymes. 4. We will consult Cardiology stat. 5. The patient may benefit from left heart catheterization. 6. Admit to telemetry. I spent 75 minutes in the care of this critical care patient. MD AGUEDA Rodriguez/PRAVIN /[id number]
[2019-07-22] MEDS: FUROSEMIDE INJ 10 MG/ML 4 ML VIAL IV SCH ×2 (10:28→17:09)
[2019-07-22] MEDS ORDERED: POTASSIUM CHLORIDE 20MEQ/100ML 100 ML IV ONE (11:45)
[2019-07-22 12:06] LABS: ABG HCO3 28 mmol/L (23-28); ABG PCO2 41 mmHg (41-51); ABG PH 7.45 (7.31-7.41); ABG PO2 67 mmHg (80-105)
[2019-07-22] MEDS ORDERED: LORAZEPAM 0.5 MG TAB PO ONE (13:00)
--- NOTE | 2019-07-22 13:01 | NUR ---
HEPARIN ON HOLD FOR PTT >150 FOR 1 HR THEN DECREASE BY 200
[2019-07-22] MEDS: EFFER K 20 MEQ PO SCH ×3 (13:36→17:09)
--- NOTE | 2019-07-22 14:02 | NUR ---
heparin restarted at 700 units/hr
[2019-07-22 14:04] LABS: CREATINE KINASE MB 10.6 ng/mL (0-5.0)
[2019-07-22] MEDS ORDERED: POTASSIUM BICARBONATE/CIT AC 20 MEQ TABLET.EFF PO ONE (15:59)
[2019-07-22] MEDS: CARVEDILOL 12.5 MG TAB PO SCH (16:26)
--- NOTE | 2019-07-22 17:46 | NUR ---
PATIENT SITTING UP IN CHAIR X 3HR
--- NOTE | 2019-07-22 19:30 | NUR ---
received patient from SHIP CEILER who reported patient noncompliance during time in ER. patient refusing to take po potassium then screams out in pain and states his arm is burning. iv potassium turned off, flushed line then applied cold ice pack to piv site for pain. upon retuning to room found ice pack thrown to side and patient complaining of continuing pain to arm re-applied ice pack covered with pillow case over site and wrapped a warm blanket around patient. md notified of patient intolerance to iv potassium and patient request for something to "help me relax". new order for potassium effervescent and one time dose given of ativan. Despite witnessing patient occasionally fall asleep after ativan, he continued to complain that he was not able to sleep and upset stomach. patient states the he gets upset stomach every time that he takes potassium at home and thats why he was not taking home potassium. patient educated to risks of critically low potassium including arrhythmias and possibly . patient refused despite verbal understanding of risks. walked into room after lunch meal and noted patient did not eat banana. encourage patient to eat due to critically low potassium but he refused. patient requested O2 be put on he said that his afib makes him sob. O2 sats at 97% on room air and 100 % on 2Lnc with rr 16. patient asked me to change pulse ox from disposable to clip on. accommodated patient but then he constantly removes pulse ox and unable to adequately monitor O2 sats. patient called often and it took 3 staff members to answer call his calls. during last interaction with him, patient stated that he wanted the other nurse and refused to talk to me. During report exchange and shift change daughter approached me and asked to speak with me. ludlow machine operator's and myself entered room. Daughter was aggressive as her voice grew louder. several times she took a step forward towards me and put her hand up towards me and never allowed me to respond to her questions. she became louder and louder and I felt threatened and left the room. daughter was very disruptive to unit.
[2019-07-22] MEDS ORDERED: HALOPERIDOL LACTATE 5 MG/ML VIAL IV PRN ×2 (19:45→23:45)
[2019-07-22] MEDS ORDERED: LORAZEPAM INJ 2 MG/ML VIAL IV PRN ×2 (19:45→23:45)
[2019-07-22] MEDS ORDERED: ATORVASTATIN 20 MG TAB PO SCH (21:00)
[2019-07-22 21:19] LABS: CREATINE KINASE MB 7.8 ng/mL (0-5.0)
[2019-07-22] MEDS: NICOTINE 21 MG/EA PATCH TOP SCH (22:36)
[2019-07-23] VITALS (19 sets, daily range): BP systolic 100–138; BP diastolic 75–134
--- NOTE | 2019-07-23 01:15 | Consultation ---
DATE OF CONSULTATION: Cardiology Consultation HISTORY OF PRESENT ILLNESS: This is a 64-year-old man with a history of atrial fibrillation, coronary artery disease, status post percutaneous coronary intervention, chronic combined systolic and diastolic congestive heart failure, AICD implantation, chronic kidney disease, peripheral artery disease, tobacco abuse, hypertension, hyperlipidemia, and diabetes mellitus, who presented to the emergency department with multiple nonspecific symptoms. The patient states that he felt "crazy" and was short of breath with lower extremity swelling and chest discomfort. The patient states that his chest pressure was centrally located without radiation and associated with some shortness of breath, [id number]-bc-[id number] in intensity, no other exacerbating or relieving factors. REVIEW OF SYSTEMS: A 12-point review of system was conducted, is negative except as stated above in the HPI. PAST MEDICAL HISTORY: As stated above in the HPI. PAST SURGICAL HISTORY: As stated above in the HPI. FAMILY HISTORY: Noncontributory. ALLERGIES: ATORVASTATIN. SOCIAL HISTORY: Tobacco use. MEDICATIONS: See medications reconciliation form. PHYSICAL EXAMINATION: VITAL SIGNS: Temperature is 97.3, heart rate is 80, respirations are 22, blood pressure is 111/93, and oxygen saturation is 96% on 2 L nasal cannula. GENERAL: He is a well-built male, seated at bedside, in no apparent distress. HEENT: Head is normocephalic, atraumatic. Eyes, the extraocular muscles are intact. Conjunctivae are clear. NECK: There is jugular venous distention present. No bruits. CARDIOVASCULAR: He has regular rate and rhythm. Systolic murmur at the right sternal border. LUNGS: Diminished breath sounds at bases. ABDOMEN: Soft, nontender, and nondistended. EXTREMITIES: 1+ edema. VASCULAR: Diminished pulses. SKIN: Warm, dry, and intact. LABORATORY DATA: Reviewed. Hemoglobin 16, white blood cell count 6, potassium 2.8, creatinine 2.05, glucose 218, AST 41, ALT 21. CK is 206, CK-MB is 10.2, CK-MB is 10.2. Troponin I is 2.79, has increased to 2.96. BNP is 3027. A 12-lead electrocardiogram showed ventricular paced rhythm. Prior echocardiogram showed severely reduced ejection fraction of 25%. IMPRESSION: 1. Ycw-BY-ntupsuxgg myocardial infarction. 2. Coronary artery disease status post percutaneous coronary intervention. 3. Acute on chronic systolic congestive heart failure. 4. Acute on chronic kidney disease. 5. Hypokalemia. 6. Implantable cardioverter-defibrillator. RECOMMENDATIONS: Continue heparin, aspirin, Plavix and statin. States that he is allergic to atorvastatin, may consider trying rosuvastatin. Beta blockers have been continued. We will continue to monitor his daily telemetry monitoring. Continue metolazone for adequate diuresis along with his IV Lasix. The patient will need repeat cardiac catheterization and a 2D echocardiogram has been ordered. DO ROSALIO Oshea/MODL /[id number]
[2019-07-23 05:26] LABS: HEMATOCRIT 50.4 % (38.2-49.6); HEMOGLOBIN 16.4 g/dL (14.0-18.0); MEAN CORPUSCULAR HEMOGLOBIN 29.9 pg (28-32); MEAN CORPUSCULAR HGB CONC 32.5 g/dL (31-35); MEAN CORPUSCULAR VOLUME 91.8 fL (81-99); RED BLOOD COUNT 5.49 x10e6/uL (4.3-5.7)
[2019-07-23 05:27] LABS: BASOPHILS # (AUTO) 0.1 (0.0-0.1); BASOPHILS % 0.7 % (0.0-1.0); EOSINOPHILS # (AUTO) 0.1 (0.0-0.4); EOSINOPHILS % 1.3 % (0.0-6.0); LYMPHOCYTES # (AUTO) 0.7 (1.0-3.2); LYMPHOCYTES % 10.6 % (18.0-39.1); MONOCYTES # (AUTO) 0.8 (0.2-0.8); MONOCYTES % 12.1 % (4.4-11.3); NEUTROPHILS # (AUTO) 5.2 (2.1-6.9); NEUTROPHILS % 74.7 % (38.7-80.0); PLATELET COUNT 150 x10e3/uL (140-360); RED CELL DISTRIBUTION WIDTH 16.6 % (11.7-14.4)
--- NOTE | 2019-07-23 06:19 | Diagnostic Imaging Report ---
EXAMINATION: CHEST SINGLE (PORTABLE) COMPARISON: Chest x-ray 07/22/2019 INDICATION: CHF ^CHF ^[id number] ^[id number] DISCUSSION: Frontal view of the chest obtained at 0557 hours. HEART AND MEDIASTINUM: Stable cardiomegaly and pacer/defibrillator wires LUNGS: Lung volumes are low. Worsening airspace opacities in the mid and lower lung zones. Vascular markings are prominent PLEURA: Small bilateral pleural effusions. No pneumothorax. BONES AND SOFT TISSUES: No focal osseous lesion. The soft tissues are normal. IMPRESSION: Worsening airspace opacities, either atelectasis or infiltrate. Small pleural effusions. Stable cardiomegaly and vascular congestion. Signed by: Dr. Crystal Chang MD on 07/23/2019 6:16 AM
[2019-07-23 06:34] LABS: ALBUMIN 2.6 g/dL (3.5-5.0); ALBUMIN/GLOBULIN RATIO 0.6 (0.8-2.0); ANION GAP 19.3 mmol/L (8-16); CALCIUM 9.4 mg/dL (8.4-10.2); CREATININE, SERUM 1.92 mg/dL (0.72-1.25); POTASSIUM 3.3 mmol/L (3.5-5.1)
[2019-07-23] MEDS: FUROSEMIDE INJ 10 MG/ML 4 ML VIAL IV SCH ×2 (09:28→17:00)
[2019-07-23] MEDS: CALCITRIOL 0.25 MCG CAP PO SCH (09:29)
[2019-07-23] MEDS: NICOTINE 21 MG/EA PATCH TOP SCH (09:29)
[2019-07-23] MEDS: CARVEDILOL 12.5 MG TAB PO SCH ×2 (09:29→17:00)
[2019-07-23] MEDS: CLOPIDOGREL BISULFATE 75 MG TAB PO SCH (09:29)
--- NOTE | 2019-07-23 10:04 | NUR ---
Pt currently sleeping. Per RN, pt has been agitated and has not slept very well. Will attempt assessment at a later time.
--- NOTE | 2019-07-23 13:41 | NUR ---
Nutrition Screen Note RD Recommendation for Physician: Consider changing diet to a 2000 calorie ADA/ 2 g Na Plan of Care: RD following, monitoring for tolerance and adequacy Nutrition reason for involvement: CHF Primary Diagnose(s):Chest Pain PMH: CHF, T2DM, CAD, PVD, CKD stage 3, Edema+2 Ht:69 in Wt:196lb BMI:28.9 kg/m2 IBW:160lb +/-10% RD Assessment: (07/23/2019) Chart reviewed. 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 Denies any N,V,D, nor has any difficulty chewing or swallowing. No significant wt changes. Current Diet: Cardiac Malnutrition Evaluation (07/23/2019) The patient does not meet criteria for a specified degree of malnutrition at this time. Will re-evaluate at follow-up as appropriate. Diet Education Needs Assessment: Diet education indicated, offered, but pt refused Nutrition Care Level: Low Signed: John Humphries RD, LD, [facility]
[2019-07-23] MEDS ORDERED: POTASSIUM CHLORIDE 20 MEQ TAB CR PO NR (14:00)
[2019-07-23] MEDS ORDERED: LORAZEPAM 1 MG TAB PO PRN (14:15)
--- NOTE | 2019-07-23 16:28 | Progress Note ---
DATE: Internal Medicine Progress Note SUBJECTIVE: The patient is sleeping comfortably. PHYSICAL EXAMINATION: VITAL SIGNS: Blood pressure 111/75, temperature 97.2, heart rate 84 per minute, respiratory rate 20 per minute, oxygen saturation 99%. HEART: Showed regular rhythm. Normal S1, S2 sound. LUNGS: Clear bilaterally. ABDOMEN: Soft. EXTREMITIES: Show 2+ bilateral pedal edema. LABORATORY DATA: BMP; sodium 138, potassium 3.3, chloride 96, CO2 of 26, BUN 62, creatinine 1.82, glucose 135. CBC, white blood count 3.86, hemoglobin 16.4, hematocrit 50.4, platelet count 150,000. PT 22.4, INR 1.89, PTT . AST 37, ALT 18, total bilirubin , alkaline phosphatase 131. IMPRESSION: 1. Coronary artery disease status post non-STEMI. 2. Acute on chronic systolic and diastolic congestive heart failure. 3. Hypokalemia. 4. Acute renal failure. 5. Agitation. TREATMENT: Continue with a heparin drip, furosemide 40 mg twice a day, calcitriol 0.25 mcg daily, carvedilol 6.25 mg twice a day, lorazepam 1 mg p.o. q.4 hours as needed for anxiety, Plavix 75 mg daily, . I discussed the case with the nurse at the bedside. Labs have been reviewed. Time spent 55 minutes. MD LUZ Neely/PRAVIN /[id number]
[2019-07-23] MEDS ORDERED: HEPARIN 25,000 UNIT DRIP IV ONE (16:43)
[2019-07-23] MEDS ORDERED: POTASSIUM BICARBONATE/CIT AC 20 MEQ TABLET.EFF PO NR (18:15)
[2019-07-23] MEDS: HEPARIN 25,000 UNIT 900 UNIT in DEXTROSE 5% 250ML 250 ML IV SCH (19:45)
--- NOTE | 2019-07-23 20:15 | NUR ---
Received patient from day nurse, patient is alert and oriented x 3. safety and fall precautions maintained as per hospital protocol: bed in lowest position and locked, needed items beside bed and call bed placed close to patient.
[2019-07-23 20:28] LABS: ANION GAP 17.3 mmol/L (8-16); CALCIUM 9.6 mg/dL (8.4-10.2); CREATININE, SERUM 1.95 mg/dL (0.72-1.25); POTASSIUM 3.3 mmol/L (3.5-5.1)
--- NOTE | 2019-07-23 20:32 | NUR ---
REPORT GIVEN TO DIONNA GAMBINO
[2019-07-23 20:57] LABS: AMPHETAMINES SCREEN,URINE NEGATIVE (NEGATIVE); BENZODIAZEPINES SCREEN,URINE POSITIVE (NEGATIVE); PHENCYCLIDINE SCREEN,URINE NEGATIVE (NEGATIVE)
[2019-07-23] MEDS ORDERED: WARFARIN SOD 2 MG TAB PO SCH (21:00)
[2019-07-23] MEDS ORDERED: DEXTROSE 50% SYRINGE 50 ML IV PRN ×2 (21:15)
--- NOTE | 2019-07-23 23:39 | Progress Note ---
DATE: 07/23/2019 Cardiology Progress Note SUBJECTIVE: No major events overnight. Transferred to the ICU today. OBJECTIVE: VITAL SIGNS: Temperature afebrile, pulse 82, respiratory rate 16, blood pressure 120/75, and saturating 100% on 2 L nasal cannula. GENERAL: man in no acute distress. CARDIOVASCULAR: Regular rate and rhythm, 2/6 systolic murmur at right upper sternal border. LUNGS: Crackles at the bases. Decreased breath sounds at the bases. ABDOMEN: Soft, nontender, and nondistended. EXTREMITIES: 2+ edema. : Scrotal edema. NEURO AND PSYCH: Alert and oriented to person, place, and time. Normal affect. INPATIENT MEDICATIONS: Reviewed. LABORATORY DATA: Reviewed. TELEMETRY DATA: Reviewed, shows paced rhythm. ASSESSMENT: 1. 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 2. Elevated troponin. 3. Coronary artery disease, status post PCI in the past. 4. History of atrial fibrillation, on Coumadin. 5. Status post ICD placement. 6. Hypokalemia. 7. Chronic kidney disease, stage 4. RECOMMENDATIONS: He has elevated troponins in the past. This has been consistent with his gcmsv-on-wnaccqh congestive heart failure exacerbation. He has very poor renal function and LV ejection fraction. He had coronary angiography earlier this year showed diffuse small-vessel CAD, not amenable to any intervention. We will resume his Coumadin. Continue aspirin and Plavix. Continue optimal heart failure therapy. Echocardiogram is pending. We will discuss options for coronary angiography once the patient is euvolemic. Thank you for this consult. We will continue to follow. MD GIUSEPPE Mabry/ODALYSL /[id number]
[2019-07-24] VITALS (7 sets, daily range): BP systolic 117–140; BP diastolic 78–94
[2019-07-24 05:27] LABS: BASOPHILS # (AUTO) 0.1 (0.0-0.1); BASOPHILS % 0.7 % (0.0-1.0); EOSINOPHILS # (AUTO) 0.3 (0.0-0.4); EOSINOPHILS % 3.4 % (0.0-6.0); HEMATOCRIT 52.7 % (38.2-49.6); HEMOGLOBIN 16.5 g/dL (14.0-18.0); LYMPHOCYTES # (AUTO) 0.7 (1.0-3.2); LYMPHOCYTES % 8.3 % (18.0-39.1); MEAN CORPUSCULAR HEMOGLOBIN 29.8 pg (28-32); MEAN CORPUSCULAR HGB CONC 31.3 g/dL (31-35); MEAN CORPUSCULAR VOLUME 95.1 fL (81-99); MONOCYTES % 11.9 % (4.4-11.3); NEUTROPHILS # (AUTO) 6.4 (2.1-6.9); NEUTROPHILS % 75.2 % (38.7-80.0); PLATELET COUNT 161 x10e3/uL (140-360); RED BLOOD COUNT 5.54 x10e6/uL (4.3-5.7); RED CELL DISTRIBUTION WIDTH 17.2 % (11.7-14.4)
--- NOTE | 2019-07-24 05:45 | NUR ---
ptt is 55.7, no change in the current rate.
[2019-07-24 05:54] LABS: ANION GAP 18.5 mmol/L (8-16); CALCIUM 9.8 mg/dL (8.4-10.2); CREATININE, SERUM 1.93 mg/dL (0.72-1.25); POTASSIUM 3.5 mmol/L (3.5-5.1)
--- NOTE | 2019-07-24 07:11 | NUR ---
Troponin 2.[address] Burkett, no new orders, ordered to hold further troponin checks and will see the patient.
--- NOTE | 2019-07-24 07:12 | NUR ---
patient endorsed to next shift for continuity of care.
[2019-07-24] MEDS: INSULIN LISPRO 100 UNIT/1 ML 3ML VIAL SQ SCH ×4 (07:30→21:23)
[2019-07-24 07:41] LABS: INR 1.87; PROTHROMBIN TIME 22.2 seconds (11.9-14.5)
[2019-07-24] MEDS: HEPARIN 25,000 UNIT 900 UNIT in DEXTROSE 5% 250ML 250 ML IV SCH (08:00)
[2019-07-24] MEDS: CLOPIDOGREL BISULFATE 75 MG TAB PO SCH (08:34)
[2019-07-24] MEDS: FUROSEMIDE INJ 10 MG/ML 4 ML VIAL IV SCH ×3 (08:34→21:05)
[2019-07-24] MEDS: CARVEDILOL 12.5 MG TAB PO SCH ×2 (08:34→17:20)
[2019-07-24] MEDS: CALCITRIOL 0.25 MCG CAP PO SCH (08:34)
[2019-07-24] MEDS: NICOTINE 21 MG/EA PATCH TOP SCH (08:34)
[2019-07-24] MEDS ORDERED: POTASSIUM CHLORIDE 20 MEQ TAB CR PO NR (11:45)
--- NOTE | 2019-07-24 14:17 | Progress Note ---
DATE: Internal Medicine Progress Note The patient complains of shortness of breath at night and complaining of insomnia and anxiety. PHYSICAL EXAMINATION: VITAL SIGNS: Blood pressure 124/90, temperature 95.7 degrees Fahrenheit, heart rate 90 per minute, respiratory rate 22 per minute, oxygen saturation 98%. HEART: Showed irregularly irregular heart rate. Normal S1, S2 sound. LUNGS: Clear bilaterally. ABDOMEN: Soft. EXTREMITIES: Showed 2+ bilateral pedal edema. FINAL IMPRESSION: 1. Coronary artery disease, status post yeu-WR-faewsovei myocardial infarction. 2. Acute on chronic systolic and diastolic congestive heart failure. 3. Hypokalemia. 4. Chronic renal failure stage 3. 5. Insomnia. LABORATORY DATA: On the blood work, we have BMP; sodium 136, potassium 3.5, chloride 83, CO2 of 28, BUN 65, creatinine 1.93, glucose of 155. On CBC, white blood count 8.56, hemoglobin 16.5, hematocrit 52.7, platelet count 161,000, PT 22.2, INR 1.87, PTT . AST 37, ALT 18, total bilirubin 5.7, alkaline phosphatase 131. PLAN OF TREATMENT: Continue with Lasix has been increased to 40 mg IV three times a day, metolazone 5 mg Thursday, Thursday, Thursday, potassium chloride has been given one time, Plavix 75 mg daily. Continue Nicoderm patch 21 mg daily, calcitriol 0.25 mcg daily. Continue monitoring blood sugar before meals and at bedtime. Lorazepam 2 mg q.4 hours as needed for shortness of breath. He is also on Coumadin 4 mg daily, which we are going to increase to 5 mg daily so once the INR is between 2.0 to 3.0, we can discontinue heparin drip and continue Coumadin. I am going to also give him Rozerem 8 mg at night p.r.n. for sleep. BMP is going to be done tomorrow to monitor BUN, creatinine, and electrolytes. Also drug screen was done, which was positive for benzodiazepine, actually the patient is on Ativan. MD LUZ Neely/MODL /[id number]
[2019-07-24] MEDS: WARFARIN SOD 5 MG TAB PO SCH (17:20)
--- NOTE | 2019-07-24 17:28 | Consultation ---
DATE OF CONSULTATION: REASON FOR CONSULT: CKD. HISTORY OF PRESENT ILLNESS: This 64-year-old male with history of atrial fibrillation, CAD, chronic kidney disease stage 3. The patient does not follow up with anybody as outpatient as far as his kidneys. Baseline is around 1.8 to 2 and he has been having short of breath with worsening lower extremity and chest discomfort. He was admitted and was diagnosed with non-ST elevation MA. Currently, he is on heparin, Plavix, and statin. The patient might need to repeat cardiac cath on Thursday. PAST MEDICAL HISTORY: Include. 1. Atrial fibrillation. 2. Coronary artery disease. 3. Systolic and congestive heart failure. 4. Status post AICD. 5. Chronic kidney disease, stage 3. 6. Peripheral artery disease. 7. Tobacco abuse. 8. Type 2 diabetes mellitus. 9. Hyperlipidemia. 10. Hypertension. PAST SURGICAL HISTORY: 1. Status post percutaneous coronary intervention. 2. AICD implantation. FAMILY HISTORY: Noncontributory. ALLERGIES: ATORVASTATIN. SOCIAL HISTORY: Smoking. CURRENT MEDICATIONS: Include Plavix, Lasix, calcitriol, haloperidol, nicotine, insulin, lorazepam, warfarin, and carvedilol. PHYSICAL EXAMINATION: GENERAL: Alert, following commands, but very sleepy. VITAL SIGNS: Blood pressure 124/90, pulse 90. HEENT: Pupils equal, reactive to light and accommodation. NECK: Positive JVD. LUNGS: Rhonchi plus rales at the bases. No wheezes. HEART: Regular rate and rhythm. No S3, no S4. ABDOMEN: Nontender and nondistended. No hepatomegaly or splenomegaly. EXTREMITIES: +3 edema. LABORATORY DATA: BUN 65, creatinine 1.93, sodium 136, potassium 3.6, hemoglobin 16.5. ASSESSMENT AND PLAN: 1. Non-ST myocardial infarction. The patient will be having a possible catheterization on Thursday, but at this time, I would not start him on IV fluids. He is already in congestive heart failure with positive jugular venous distention and positive leg edema. 2. Chronic kidney disease stage 3 with a creatinine between 1.6 and 2, currently at baseline, but he is high risk for contrast nephropathy. I did explain that to the patient. The patient also has never been worked up for kidney failure, so we will have a full workup. Please see orders. 3. Hypokalemia. The patient's potassium will be replaced with supplement. 4. Congestive heart failure. The patient's Lasix dose will be increased. Chuck Turk MD MA/PRAVIN /[id number]
[2019-07-24] MEDS: HYDROCODONE/APAP 5MG-325MG TAB PO PRN (20:00)
[2019-07-24] MEDS ORDERED: MELATONIN 5 MG TABLET PO SCH (21:00)
[2019-07-25 01:12] VITALS: BP 120/90
[2019-07-25] MEDS: HYDROCODONE/APAP 5MG-325MG TAB PO PRN ×3 (01:28→15:44)
--- NOTE | 2019-07-25 04:49 | Progress Note ---
DATE: 07/24/2019 Cardiology Progress Note SUBJECTIVE: No major events overnight. No chest pain. Resting in bed comfortably. OBJECTIVE: VITAL SIGNS: Temperature afebrile, pulse 81, respiratory rate 18, blood pressure 117/78, and saturating 99% on room air. GENERAL: man, well developed, well nourished, no acute distress. CARDIOVASCULAR: Regular rate and rhythm. No murmurs, rubs, or gallops. LUNGS: Bibasilar crackles. ABDOMEN: Soft, nontender, and nondistended. NEURO AND PSYCH: Alert and oriented to person, place, and time. Normal affect. INPATIENT MEDICATIONS: Reviewed. LABORATORY DATA: Reviewed. TELEMETRY DATA: Reviewed, shows paced rhythm. ASSESSMENT AND PLAN: 1. Acute on chronic combined systolic and diastolic heart failure exacerbation. 2. Elevated troponin. 3. Coronary artery disease, status post PCI in the past. 4. History of atrial fibrillation, on Coumadin. 5. Status post ICD placement. 6. Hypokalemia. 7. Chronic kidney disease, stage 4. RECOMMENDATIONS: With pattern of troponin not consistent with ACS given his past admissions, this is more consistent with type 2 AR related to his CHF exacerbations. Currently, remains asymptomatic. No chest pain. Continue IV diuretics as renal function tolerates. Continue anticoagulation for atrial fibrillation and aspirin and Plavix for CAD. No plan for coronary angiography once the patient is able to lay flat and more euvolemic and renal function is optimized. Thank you for this consult. We will continue to follow. MD GIUSEPPE Mabry/PRAVIN /[id number]
[2019-07-25 06:23] LABS: BASOPHILS % 0.7 % (0.0-1.0); EOSINOPHILS # (AUTO) 0.4 (0.0-0.4); HEMATOCRIT 50.9 % (38.2-49.6); HEMOGLOBIN 16.2 g/dL (14.0-18.0); LYMPHOCYTES # (AUTO) 0.8 (1.0-3.2); LYMPHOCYTES % 12.4 % (18.0-39.1); MEAN CORPUSCULAR HEMOGLOBIN 30.2 pg (28-32); MEAN CORPUSCULAR HGB CONC 31.8 g/dL (31-35); MONOCYTES # (AUTO) 0.8 (0.2-0.8); MONOCYTES % 13.1 % (4.4-11.3); NEUTROPHILS # (AUTO) 4.1 (2.1-6.9); NEUTROPHILS % 67.5 % (38.7-80.0); PLATELET COUNT 124 x10e3/uL (140-360); RED BLOOD COUNT 5.36 x10e6/uL (4.3-5.7)
[2019-07-25 06:33] VITALS: BP 110/76
[2019-07-25 06:33] LABS: INR 2.15; PROTHROMBIN TIME 24.7 seconds (11.9-14.5)
[2019-07-25 06:46] LABS: ALBUMIN 2.4 g/dL (3.5-5.0); ALBUMIN/GLOBULIN RATIO 0.5 (0.8-2.0); ANION GAP 15.4 mmol/L (8-16); CALCIUM 9.7 mg/dL (8.4-10.2); CREATININE, SERUM 1.78 mg/dL (0.72-1.25); POTASSIUM 3.4 mmol/L (3.5-5.1)
--- NOTE | 2019-07-25 07:04 | Diagnostic Imaging Report ---
EXAMINATION: CHEST SINGLE (PORTABLE) COMPARISON: Chest x-ray 07/23/2019 INDICATION: ^CHF ^Y DISCUSSION: Frontal view of the chest obtained at 0617 hours. HEART AND MEDIASTINUM: The heart is enlarged and contains pacemaker/fibrillator wires. Pulmonary arteries are enlarged and stable in morphology LUNGS: Bibasilar airspace opacities are similar. Pulmonary vascular markings are prominent and stable. PLEURA: Blunting of the left lateral costophrenic angle is stable. Trace blunting of the right lateral costophrenic angle. No pneumothorax BONES AND SOFT TISSUES: No focal osseous lesion. The soft tissues are normal. IMPRESSION: Bibasilar airspace opacities suggestive of atelectasis or infiltrate. Small pleural effusions, left larger than right. No change in vascular congestion. Signed by: Dr. Crystal Chang MD on 07/25/2019 7:01 AM
--- NOTE | 2019-07-25 07:16 | NUR ---
Patient sitting on recliner with eyes open. Respiration even and unlabored without SOB. Call light in reach.
--- NOTE | 2019-07-25 07:17 | NUR ---
[Patient endorsed to day nurse for continuity of care. Please follow up on INR/PTT, patient is on heparin drip, check MD to Nurse instructions on Heparin drip and INR.
[2019-07-25 08:12] VITALS: BP 136/77
[2019-07-25] MEDS: INSULIN LISPRO 100 UNIT/1 ML 3ML VIAL SQ SCH ×3 (08:31→16:29)
[2019-07-25 08:58] VITALS: BP 136/77
[2019-07-25] MEDS ORDERED: METOLAZONE 5 MG TAB PO SCH (09:00)
[2019-07-25 09:21] LABS: PLATELET ESTIMATE SLIGHTLY DECREASED; PLATELET MORPHOLOGY COMMENT NORMAL
--- NOTE | 2019-07-25 09:28 | Diagnostic Imaging Report ---
EXAM: Renal Ultrasound INDICATION: ^CKD ^[id number] ^[id number] COMPARISON: Abdominal ultrasound of 05/06/2019 TECHNIQUE: Transverse and longitudinal images of the kidneys and bladder were obtained. FINDINGS: Right Kidney: Length: 11.4 cm Appearance: Normal echogenicity. Collecting system: No hydronephrosis Stones: None Cyst/Mass: None Left Kidney: Length: 11.0 cm Appearance: Normal echogenicity. Collecting system: No hydronephrosis Stones: None Cyst/Mass: None Bladder: No mass or calculi. Prevoid volume estimate of 111.0 cc. Prostate measures 2.5 x 1.9 x 2.8 cm with volume estimate of 6.8 cc. IMPRESSION: No renal calculi or hydronephrosis. Signed by: Marium Abreu MD on 07/25/2019 9:25 AM
[2019-07-25] MEDS: FUROSEMIDE INJ 10 MG/ML 4 ML VIAL IV SCH ×2 (09:46→15:36)
[2019-07-25] MEDS: CALCITRIOL 0.25 MCG CAP PO SCH (09:47)
[2019-07-25] MEDS: CARVEDILOL 12.5 MG TAB PO SCH ×2 (09:47→16:21)
[2019-07-25] MEDS: CLOPIDOGREL BISULFATE 75 MG TAB PO SCH (09:47)
[2019-07-25] MEDS: NICOTINE 21 MG/EA PATCH TOP SCH (09:47)
--- NOTE | 2019-07-25 10:00 | NUR ---
On head to toe assessment, noted scrotal swelling.
--- NOTE | 2019-07-25 10:00 | NUR ---
Head to toe assessment on patient. No wounds noted on the bottom, bilateral foot and legs. 2+ pitting edema on BLE noted. Patient c/o mild soreness on the buttocks. Family members at bedside. Call light in reach.
--- NOTE | 2019-07-25 12:05 | NUR ---
EDUCATED ABOUT IMM, SIGNED, FILED IN CHART, WITH COPY LEFT WITH FAMILY AT BEDSIDE.
[2019-07-25 12:06] VITALS: BP 112/80
--- NOTE | 2019-07-25 12:07 | NUR ---
ORDERS FOR LTAC EVAL TODAY PT AND AGREE WITH MED RESORT [facility] CHOICE LETTER SIGNED MOT INITIATED AND [facility] NOTIFIED OF CONSULT PLAN TRANSFER WHEN ACCEPTED
[2019-07-25] MEDS ORDERED: CEFEPIME 1GM/NS 0.9% 50 ML 50 ML IV SCH (12:45)
[2019-07-25 16:03] LABS: BILIRUBIN,URINE NEGATIVE (NEGATIVE); CLARITY,URINE SL CLOUDY (CLEAR); COLOR,URINE YELLOW (YELLOW); KETONES,URINE NEGATIVE (NEGATIVE); LEUKOCYTE ESTERASE ,URINE NEGATIVE (NEGATIVE); NITRITE,URINE NEGATIVE (NEGATIVE); PROTEIN,URINE DIPSTICK NEGATIVE (NEGATIVE); URINE UROBILINOGEN 1 mg/dL (0.2 - 1)
[2019-07-25 16:07] VITALS: BP 112/80
[2019-07-25 16:21] LABS: CREATININE,URINE RANDOM 18.54 mg/dL (63-166)
[2019-07-25] MEDS: WARFARIN SOD 5 MG TAB PO SCH (16:21)
[2019-07-25 16:28] LABS: BACTERIA,URINE FEW /HPF
--- NOTE | 2019-07-25 16:59 | NUR ---
Dictated DC summary: [id number]
[2019-07-25 17:04] LABS: SODIUM,URINE 94 mmol/L
[2019-07-25] MEDS ORDERED: POTASSIUM BICARBONATE/CIT AC 20 MEQ TABLET.EFF PO ONE (17:20)
--- NOTE | 2019-07-25 17:49 | Discharge Summary ---
ADMIT DIAGNOSES: 1. Non ST-elevated myocardial infarction. 2. Coronary artery disease. 3. Snaqc-uk-hkaqbnl systolic/diastolic congestive heart failure. 4. Chronic atrial fibrillation. 5. Stage 3 chronic kidney disease. 6. Hypokalemia. DISCHARGE DIAGNOSES: 1. Non ST elevated myocardial infarction, resolving. 2. Bilateral pneumonia. 3. Coronary artery disease. 4. Zryfi-lh-ztiaein systolic and diastolic congestive heart failure. 5. Chronic atrial fibrillation. 6. Stage 3 chronic kidney failure. 7. Zlezm-df-fzahowi renal insufficiency, resolved. 8. Hypokalemia, resolving. 9. Type 2 diabetes mellitus. HOSPITAL COURSE: This is a 64-year-old man, who was initially admitted to [facility] with diagnosis of non ST elevated myocardial infarction and hxqja-nu-eocllgc systolic/diastolic congestive heart failure. During this hospitalization, the patient's troponin I remained elevated with a value that did get as high as 2.965, but on day of discharge, it was 2.519. The continuity coordinator namely Dr. Eamon Burkett felt that the elevated troponin I was most likely secondary to his acute congestive heart failure as opposed to acute coronary syndrome. The patient did not undergo a left heart catheterization because he was never able to lay flat due to his orthopnea secondary to heart failure. During this hospital stay, he was diagnosed with pneumonia. Thus, decision was made to transfer the patient to a long-term acute care facility, namely [facility] where he could receive intravenous antibiotics for his pneumonia as well as intravenous furosemide for his acute heart failure. The patient's brief hospitalization was unremarkable. CONDITION ON DISCHARGE: Stable with an overall poor prognosis. DISCHARGE MEDICATIONS: 1. Warfarin 5 mg daily. 2. Carvedilol 6.25 mg b.i.d. 3. Antler 5/325 one every 4 hours p.r.n. pain. 4. Furosemide 40 mg intravenous three times a day. 5. Cefepime 1 g intravenous daily. 6. Nicotine patch 21 mg strength once daily. 7. Metolazone 5 mg Thursday, Thursday, and Thursday. 8. Clopidogrel 75 mg daily. 9. Calcitriol 0.25 mcg once daily. 10. Melatonin 5 mg at bedtime. 11. Lorazepam 2 mg every 4 hours for anxiety. 12. Humalog insulin sliding scale. FOLLOWUP INSTRUCTIONS: As previously stated, the patient was transferred to a local long-term acute care facility namely [facility], where he will be under the care of his attending, namely myself Dr. Ronak Aldana. At this facility, the patient will receive intravenous antibiotics for his pneumonia as well as intravenous furosemide for his congestive heart failure. Ronak Aldana MD MEO/MODL /[id number] cc: MD Eamon Ramirez MD MTDD
--- NOTE | 2019-07-25 17:54 | NUR ---
Report given to MAKI Chow at [facility].
[2019-07-25 18:03] LABS: EOSINOPHIL SMEAR,URINE NONE SEEN (NONE SEEN)
--- NOTE | 2019-07-25 18:44 | NUR ---
Patient is transported via stretcher transferring to [facility]. Respiration even and unlabored without SOB.
--- NOTE | 2019-07-26 02:27 | Progress Note ---
DATE: 07/25/2019 Cardiology Progress Note SUBJECTIVE: The patient reports intermittent chest pain. He endorses shortness of breath. OBJECTIVE: VITAL SIGNS: Temperature 95.6 degrees, pulse 81, respiratory rate 17, blood pressure 140/80, oxygen saturation 100% on 2 L nasal cannula. GENERAL: Well-developed, well-nourished man, in no acute distress. Awake and alert. LUNGS: Bibasilar crackles, otherwise clear to auscultation. CARDIAC: Normal rate, regular rhythm. No murmur. Normal S1 and S2. ABDOMEN: Soft, nontender. EXTREMITIES: 2+ pitting edema. CARDIAC MEDICATIONS: 1. Warfarin 5 mg p.o. daily. 2. Carvedilol 6.25 mg p.o. b.i.d. 3. Furosemide 40 mg IV t.i.d. 4. Metolazone 5 mg Thursday, Thursday, Thursday. 5. Plavix 75 mg p.o. daily. LABORATORY DATA: WBC 6.05, hemoglobin 15.2, hematocrit 50.9, and platelets 124. Sodium 137, potassium 3.4, chloride 94, CO2 of 31, BUN 63, creatinine 1.78. Troponin 2.519. TELEMETRY: V paced. IMPRESSION: 1. Acute on chronic combined systolic and diastolic heart failure. 2. Elevated troponin. 3. Coronary artery disease, status post prior PCI. 4. Status post ICD. 5. Peripheral arterial disease. 6. Atrial fibrillation, on Coumadin. 7. Chronic kidney disease. RECOMMENDATIONS: Troponin elevation is not consistent with myocardial infarction. This is most likely secondary to the patient's congestive heart failure and chronic kidney disease. Volume optimization with IV diuretics as renal function tolerates. Continue anticoagulation for atrial fibrillation. Continue aspirin and Plavix. The patient has had at this time until his renal function is optimized and he is euvolemic. Continue current cardiac medications. Thank you for this consult. We will continue to follow. Genesis Isbell MD ABS/MODL /[id number]
[2019-07-26 12:09] LABS: ALPHA 2 GLOBULIN URINE PEP 19.5 % (.)
== END 2019-07-25 18:44 | DRG 280 ==
LOC: ER 05:53 → ERHOLD 07:11 → ICU 12:30 → MED/SURG 07-23 19:34
PROVIDERS: ADMIT Internal Medicine; ATTEND Internal Medicine
DX: I21.4 Non-ST elevation (NSTEMI) myocardial infarction (principal); I50.43 Acute on chronic combined systolic (congestive) and diastolic (congestive) heart failure; J18.1 Lobar pneumonia, unspecified organism; I13.0 Hypertensive heart and chronic kidney disease with heart failure and stage 1 through stage 4 chronic kidney disease, or unspecified chronic kidney disease; N17.9 Acute kidney failure, unspecified; I25.10 Atherosclerotic heart disease of native coronary artery without angina pectoris; N18.3 Chronic kidney disease, stage 3 (moderate); E11.22 Type 2 diabetes mellitus with diabetic chronic kidney disease; Z79.4 Long term (current) use of insulin; E87.6 Hypokalemia; I48.2 Chronic atrial fibrillation; Z79.01 Long term (current) use of anticoagulants; Z95.810 Presence of automatic (implantable) cardiac defibrillator; Z87.891 Personal history of nicotine dependence; E78.5 Hyperlipidemia, unspecified; E11.51 Type 2 diabetes mellitus with diabetic peripheral angiopathy without gangrene; G47.00 Insomnia, unspecified
CPT/HCPCS: 36415; 36600; 71045; 76770; 80048; 80053; 80307; 81001; 81015; 82550; 82553; 82570; 82693; 82805; 82948; 83605; 83735; 83880; 83970; 84100; 84166; 84300; 84484; 85025; 85610; 85730; 86021; 86039; 86160; 86431; 87040; 87086; 87340; 93005; 93306; 94660; 99285; J0692; J0696; J1630; J1644; J1940; J2060; J3480; J7030